=== PATIENT | female | born 1980 | race Caucasian/White ===

== ENCOUNTER 2016-10-20 10:55 | Emergency (ER) | payer MEDICAID ==
[~2016-10-20] VITALS: Wt 55.5 kg
[~2016-10-20 10:55] MED LIST: HYDR-902 PO; ONDA-43 PO; ULT50 PO
[2016-10-20] MEDS ORDERED: SOD CHLORIDE 0.9% 1,000 ML IV STA (11:08)
[2016-10-20] MEDS ORDERED: ONDANSETRON 4 MG INJ IV STA (11:08)
[2016-10-20] MEDS ORDERED: morphine 4 MG/ML VIAL IV STA (11:08)
[2016-10-20] MEDS ORDERED: DICLOFENAC SODIUM 37.5 MG/ML VIAL IV STA (11:13)
[2016-10-20 12:01] LABS: BASOPHILS % 0.1 % (0.0-2.0); HEMATOCRIT 39.5 % (37.0-47.0); HEMOGLOBIN 13.3 g/dl (12.0-16.0); LYMPHOCYTES # 0.6 10^3/ul (0.8-2.9); LYMPHOCYTES % 5.4 % (15.0-51.0); MEAN CORPUSCULAR HEMOGLOBIN 30.4 pg (29.0-33.0); MEAN CORPUSCULAR HGB CONC 33.6 g/dl (32.0-37.0); MEAN CORPUSCULAR VOLUME 90.4 fl (82.0-101.0); MEAN PLATELET VOLUME 8.3 fl (7.4-10.4); MONOCYTE # 0.3 10^3/ul (0.3-0.9); MONOCYTES % 2.4 % (0.0-11.0); NEUTROPHIL # 9.6 10^3/ul (1.6-7.5); NEUTROPHILS % 92.1 % (39.0-77.0); PLATELET COUNT 228 10^3/UL (140-440); RED BLOOD COUNT 4.37 10^6/ul (4.20-5.40); RED CELL DISTRIBUTION WIDTH 14.1 % (11.5-14.5); UNCORRECTED WBC 10.5 10^3/ul (4.8-10.8); WHITE BLOOD COUNT 10.5 10^3/ul (4.8-10.8)
[2016-10-20 12:11] LABS: CONDITION 1; LH ANALYZER COMMENTS 1
[2016-10-20 12:12] LABS: INR 0.93; PROTIME 12.5 Sec (12.2-14.2)
[2016-10-20 12:13] LABS: PARTIAL THROMBOPLASTIN TIME 27.8 Sec (25.0-35.0)
[2016-10-20 12:23] LABS: ALBUMIN 4.8 g/dl (3.3-4.9)
[2016-10-20 12:24] LABS: POTASSIUM 3.9 mmol/L (3.5-5.1)
[2016-10-20 12:26] LABS: ADD UMIC YES; URINE BILIRUBIN (Dip) NEGATIVE (NEGATIVE); URINE BLOOD (Dip) NEGATIVE (NEGATIVE); URINE COLOR LT. YELLOW (YELLOW); URINE GLUCOSE (Dip) NEGATIVE (NEGATIVE); URINE KETONES (Dip) NEGATIVE (NEGATIVE); URINE LEUKOCYTE ESTERASE (Dip) 1+ (NEGATIVE); URINE NITRITE (Dip) NEGATIVE (NEGATIVE); URINE TOTAL PROTEIN (Dip) NEGATIVE (NEGATIVE); URINE UROBILINOGEN (Dip) 0.2 E.U./dL (0.1-1.0)
[2016-10-20 12:26] LABS: ALBUMIN/GLOBULIN RATIO 1.33; BILIRUBIN,INDIRECT 0.2 mg/dl (0-1.1); BILIRUBIN,TOTAL 0.2 mg/dl (0.2-1.3); CREATININE 0.63 mg/dl (0.44-1.00); TOTAL PROTEIN 8.4 g/dl (6.1-8.1)
[2016-10-20 12:27] LABS: CALCIUM 9.9 mg/dl (8.4-10.2)
[2016-10-20] MEDS ORDERED: HYDROmorphONE 1 MG/ML SYG IV STA (12:34)
[2016-10-20 12:47] LABS: BACTERIA,URINE FEW; SQUAMOUS EPITHELIAL CELL,UR FEW; URINE RBCS NONE SEEN /HPF (0)
[2016-10-20] MEDS ORDERED: SOD CHLORIDE 0.9% 1,000 ML IV ONE (13:00)
--- NOTE | 2016-10-20 13:01 | ERD ---
ER Documentation Chief Complaint Date/Time DATE: 10/20/16 TIME: 12:58 Chief Complaint SEVERE ABD PAIN, N/V, HX OF ABD CANCER, SURGERY 2 MONTHS AGO HPI This 36-year-old female presented with lower abdominal pain as well as nausea and vomiting. States that she ate beans last night and thinks that's why the pain started at that time. She had a normal bowel this morning denies diarrhea or constipation. She had extensive abdominal surgery [address] 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 Pain is described as a sharp pain and she feels that her abdomen has swelling down there. He denies any fevers and chills. ROS All systems reviewed and are negative except as per history of present illness. Medications Home Meds Active Scripts Tramadol HCl (Tramadol HCl) 50 Mg Tablet, 50 MG PO Q4 Y for PAIN, #20 TAB Prov:EMILIANO DOWNING 09/25/16 Reported Medications Ondansetron Hcl* (Zofran*) 4 Mg Tab, 4 MG PO Q6H Y for NAUSEA AND OR VOMITING, TAB 09/25/16 Hydrocodone/Acetaminophen ([place] 10-325 Tablet) 1 Each Tablet, 1 EACH PO Q6 Y for PAIN, TAB 09/25/16 Allergies Allergies: Coded Allergies: No Known Allergy (Verified , 10/20/16) PMhx/Soc History of Surgery: Yes (YAZMIN w/ tumor removal 08/2016) Anesthesia Reaction: No Hx Neurological Disorder: No Hx Respiratory Disorders: No Hx Cardiac Disorders: No Hx Psychiatric Problems: No Hx Miscellaneous Medical Probl: Yes (OVARIAN CA WITH METS: stage 4) Hx Alcohol Use: No Hx Substance Use: No Hx Tobacco Use: No Physical Exam Vitals Vital Signs Date Time Temp Pulse Resp B/P Pulse Ox O2 Delivery O2 Flow Rate FiO2 10/20/16 11:00 98.5 67 18 124/89 99 Physical Exam Const: [] No distress Head: Atraumatic Eyes: Normal Conjunctiva ENT: Normal External Ears, Nose and Mouth. Neck: Full range of motion..~ No meningismus. Resp: Clear to auscultation bilaterally Cardio: Regular rate and rhythm, no murmurs Abd: Soft, well-healed midline abdominal scar from epigastric area down to suprapubic area, mild left lower quadrant suprapubic tenderness without guarding or rebound,, non distended. Normal bowel sounds Skin: No petechiae or rashes Back: No midline or flank tenderness Ext: No cyanosis, or edema Neur: Awake and alert oriented 3, no focal deficits Psych: Normal Mood and Affect Result Diagram: 10/20/16 1125 10/20/16 1125 Results 24 hrs Laboratory Tests Test 10/20/16 11:25 10/20/16 12:10 Activated Partial Thromboplast Time 27.8Sec Alanine Aminotransferase (ALT/SGPT) 52IU/L Albumin 4.8g/dl Albumin/Globulin Ratio 1.33 Alkaline Phosphatase 75IU/L Anion Gap 21 Aspartate Amino Transf (AST/SGOT) 39IU/L Basophils # 0.010^3/ul Basophils % 0.1% Blood Urea Nitrogen 13mg/dl Calcium Level 9.9mg/dl Carbon Dioxide Level 25mmol/L Chloride Level 104mmol/L Creatinine 0.63mg/dl Direct Bilirubin 0.00mg/dl Eosinophils # 0.010^3/ul Eosinophils % 0.0% Globulin 3.60g/dl Glucose Level 132mg/dl Hematocrit 39.5% Hemoglobin 13.3g/dl INR International Normalized Ratio 0.93 Indirect Bilirubin 0.2mg/dl Lactic Acid Level 2.6mmol/L Lipase 99U/L Lymphocytes # 0.610^3/ul Lymphocytes % 5.4% Mean Corpuscular Hemoglobin 30.4pg Mean Corpuscular Hemoglobin Concent 33.6g/dl Mean Corpuscular Volume 90.4fl Mean Platelet Volume 8.3fl Monocytes # 0.310^3/ul Monocytes % 2.4% Neutrophils # 9.610^3/ul Neutrophils % 92.1% Nucleated Red Blood Cells # 0.010^3/ul Nucleated Red Blood Cells % 0.0/100WBC Platelet Count 62164^3/UL Potassium Level 3.9mmol/L Prothrombin Time 12.5Sec Prothrombin Time Ratio 1.0 Red Blood Count 4.3710^6/ul Red Cell Distribution Width 14.1% Sodium Level 146mmol/L Total Bilirubin 0.2mg/dl Total Protein 8.4g/dl White Blood Count 10.510^3/ul Urine Bacteria FEW Urine Bilirubin NEGATIVE Urine Clarity CLEAR Urine Color LT. YELLOW Urine Glucose NEGATIVE% Urine Hemoglobin NEGATIVE Urine Ketones NEGATIVE Urine Leukocyte Esterase 1+ Urine Microscopic RBC NONE SEEN/HPF Urine Microscopic WBC 0-2/HPF Urine Nitrite NEGATIVE Urine Specific [place] 1.025 Urine Squamous Epithelial Cells FEW Urine Total Protein NEGATIVE Urine Urobilinogen 0.2 E.U./dL Urine pH 6.5 Current Medications Medications (Trade) Dose Ordered Sig/Sharon Route PRN Reason Start Time Stop Time Status Last Admin Dose Admin Sodium Chloride (NS) 1,000 ml @ 1,000 mls/hr Q1H STAT IV 10/20/16 11:08 10/20/16 12:07 DC 10/20/16 11:27 Morphine Sulfate (morphine) 4 mg ONCE STAT IV 10/20/16 11:08 10/20/16 11:14 DC Ondansetron HCl (Zofran Inj) 4 mg ONCE STAT IV 10/20/16 11:08 10/20/16 11:10 DC 10/20/16 11:27 Diclofenac Sodium (Dyloject) 37.5 mg ONCE STAT IV 10/20/16 11:13 10/20/16 11:14 DC 10/20/16 11:27 Hydromorphone HCl 0.5 mg 0.5 mg ONCE STAT IV 10/20/16 12:34 10/20/16 12:35 DC 10/20/16 12:44 Sodium Chloride (NS) 1,000 ml @ 1,000 mls/hr Q1H ONCE IV 10/20/16 13:00 10/20/16 13:59 SHAWNA RAMIREZ DO Oct 20, 2016 13:01
--- NOTE | 2016-10-20 14:07 | RADRPT ---
PROCEDURE: CT abdomen and pelvis without contrast and with 3-D reconstructions CLINICAL INDICATION: Patient experiencing Abdominal Pain, history of abdominal cancer, surgery 2 m onths ago, ovarian cancer with metastases, total abdominal hysterectomy with tumor removal in 2015 TECHNIQUE: CT scan of the abdomen and pelvis without contrast was performed on a multislice CT [facility]. 3-D sagittal and coronal reformatted images were obtained from the axial source images. DLP 412.79 mGycm CTDIvol 7.71 mGy COMPARISON: CT abdomen/pelvis from 09/22/2016 FINDINGS: The visualized lung bases are unremarkable. The liver is homogenous in attenuation. There are no focal liver lesions. There is no intrahepatic or extrahepatic biliary ductal dilatation. The gallbladder is within normal limits. The spleen, pancreas, and adrenal glands are within normal limits. The kidneys are symmetric and without focal lesions. Punctate bilateral renal calculi are again note d. There is no right hydronephrosis. There is new mild left hydronephrosis. A ureteral calculus i s not definitively identified. Distension of the stomach and multiple small bowel loops seen previously is no longer identified. A nastomotic sutures are again noted in the sigmoid colon. There is no evidence of a bowel obstructio n or stricture at the anastomotic site. No definite peritoneal carcinomatosis is identified. The aorta is within normal limits. There are no enlarged mesenteric, periaortic, or retroperitoneal lymph nodes. The bladder is within normal limits. The uterus is absent. There is no free air. There small pelv ic free fluid. There are no enlarged intrapelvic or inguinal lymph nodes. Osseous and soft tissue structures are unremarkable. IMPRESSION: Punctate renal calculi are again identified bilaterally, however there is new mild left hydronephros is. A definite ureteral calculus is not identified. Clinical correlation is recommended. Anastomotic sutures are again noted in the sigmoid colon without evidence of a bowel obstruction or stricture at the anastomotic site. Small pelvic free fluid is noted. The uterus is absent consistent with the reported history. RPTAT: EE Physician Vladislav Date Time Electronically viewed and signed by Physician Vladislav on 10/20/2016 14:06 RA/
[2016-10-20] MEDS ORDERED: NAPR-688 PO (15:14)
[2016-10-20] MEDS ORDERED: POLY17PO6 PO (15:14)
[2016-10-20 15:30] VITALS: BP 111/77; PULSE 70; RESP 16; TEMP 98.1
== END 2016-10-20 15:30 | disposition home or self-care (01) ==
LOC: E/R 10:55
DX: R10.31 Right lower quadrant pain (principal); Z85.43 Personal history of malignant neoplasm of ovary
CPT/HCPCS: 36415; 74176; 80053; 81001; 83605; 83690; 85025; 85610; 85730; 96374; 96375; J1170; J2405; J7030; Z7502; Z7610; 81003

== ENCOUNTER 2017-01-06 09:12 | Emergency (ER) | payer OTHER ==
[~2017-01-06] VITALS: Ht 160 cm; Wt 54.0 kg
[~2017-01-06 09:12] MED LIST changes: +NAPR-688 PO; +POLY17PO6 PO; +TRAM50TA2 PO; -ULT50 PO
[2017-01-06 09:19] VITALS: Ht 160 cm; Wt 54.0 kg
[2017-01-06] MEDS ORDERED: BARIUM SULF 2% 450 ML BTL (BERRY SMOOTHIE) PO STA (09:43)
[2017-01-06] MEDS ORDERED: morphine 4 MG/ML VIAL IV STA (09:43)
[2017-01-06] MEDS ORDERED: SOD CHLORIDE 0.9% 1,000 ML IV STA (09:43)
[2017-01-06] MEDS ORDERED: ONDANSETRON 4 MG INJ IV STA (09:43)
--- NOTE | 2017-01-06 09:50 | ERA ---
ER Documentation Chief Complaint Date/Time DATE: 01/06/17 TIME: 09:47 Chief Complaint GEN ABDL PAIN X 5 DAYS - HISTORY OF OVARIAN CANCER, HAD SURGERY 07/2016 HPI Patient is a 36-year-old female who had a complete hysterectomy done in July for ovarian cancer. This was followed by chemotherapy in August. She states she stopped the chemotherapy early because her numbers went down. She failed to follow up with her oncologist however she has been following up with her primary care physician who has been checking her cancer numbers. She states that his numbers unfortunately have been increasing recently. She is noted lower abdominal pain with a fullness. Is also had dyspareunia. She is concerned that the cancer has reoccurred and presents here for further evaluation. She denies any abdominal trauma, fever, vomiting, nausea, diarrhea , dysuria, hematuria, flank pain. She states movement increases the pain, nothing helps the pain. She has had weight loss but she states she has had weight loss because she is on a special diet for the ovarian cancer. The remainder of the systems are negative ROS All systems reviewed and are negative except as per history of present illness. Medications Home Meds Discontinued Reported Medications Ondansetron Hcl* (Zofran*) 4 Mg Tab, 4 MG PO Q6H Y for NAUSEA AND OR VOMITING, TAB 09/25/16 Hydrocodone/Acetaminophen ([place] 10-325 Tablet) 1 Each Tablet, 1 EACH PO Q6 Y for PAIN, TAB 09/25/16 Discontinued Scripts Polyethylene Glycol* (Miralax*) 17 Gm Powd.pack, 17 GM PO DAILY, #7 PACKET Prov:SHAWNA RAMIREZ DO 10/20/16 Naproxen* (Naproxen*) 500 Mg Tablet, 500 MG PO BID Y for PAIN, #20 TAB Prov:SHAWNA RAMIREZ DO 10/20/16 Tramadol HCl (Tramadol HCl) 50 Mg Tablet, 50 MG PO Q4 Y for PAIN, #20 TAB Prov:EMILIANO DOWNING 09/25/16 Allergies Allergies: Coded Allergies: No Known Allergy (Verified , 01/06/17) PMhx/Soc History of Surgery: Yes (TOTAL ABD HYSTERECTOMY W/ TUMOR REMOVAL AUG 2016) Anesthesia Reaction: No Hx Neurological Disorder: No Hx Respiratory Disorders: No Hx Cardiac Disorders: No Hx Psychiatric Problems: No Hx Miscellaneous Medical Probl: Yes (OVARIAN CA WITH METS: STAGE 4) Hx Alcohol Use: No Hx Substance Use: No Hx Tobacco Use: No Physical Exam Vitals Vital Signs Date Time Temp Pulse Resp B/P Pulse Ox O2 Delivery O2 Flow Rate FiO2 01/06/17 12:18 54 12 113/80 100 Room Air 01/06/17 11:14 98.1 66 13 107/72 96 Room Air 01/06/17 09:19 98.5 73 19 116/73 99 Physical Exam Const: [] Well-developed well-nourished female lying on the bed no acute distress Head: Atraumatic normocephalic Eyes: Normal Conjunctiva ENT: Normal External Ears, Nose and Mouth. Neck: Full range of motion..~ No meningismus. Resp: Clear to auscultation bilaterally Cardio: Regular rate and rhythm, no murmurs Abd: Soft, mild tenderness to palpation throughout the lower abdomen, no masses, rebound, or guarding, audible bowel sounds auscultated Skin: No petechiae or rashes Back: No midline or flank tenderness Ext: No cyanosis, or edema Neur: Awake and alert, oriented 3, GCS of 15, nonfocal Psych: Normal Mood and Affect Result Diagram: 01/06/17 1006 01/06/17 1006 Results 24 hrs Laboratory Tests Test 01/06/17 10:06 Alanine Aminotransferase (ALT/SGPT) 60IU/L Albumin 4.2g/dl Albumin/Globulin Ratio 1.35 Alkaline Phosphatase 80IU/L Anion Gap 16 Aspartate Amino Transf (AST/SGOT) 52IU/L Basophils # 0.010^3/ul Basophils % 0.4% Blood Urea Nitrogen 14mg/dl Calcium Level 9.4mg/dl Carbon Dioxide Level 31mmol/L Chloride Level 101mmol/L Creatinine 0.64mg/dl Direct Bilirubin 0.00mg/dl Eosinophils # 0.110^3/ul Eosinophils % 2.2% Globulin 3.10g/dl Glucose Level 87mg/dl Hematocrit 34.8% Hemoglobin 12.1g/dl Indirect Bilirubin 0.3mg/dl Lipase 111U/L Lymphocytes # 1.110^3/ul Lymphocytes % 24.4% Mean Corpuscular Hemoglobin 31.5pg Mean Corpuscular Hemoglobin Concent 34.8g/dl Mean Corpuscular Volume 90.6fl Mean Platelet Volume 10.5fl Monocytes # 0.310^3/ul Monocytes % 6.4% Neutrophils # 3.010^3/ul Neutrophils % 66.6% Nucleated Red Blood Cells # 0.010^3/ul Nucleated Red Blood Cells % 0.0/100WBC Platelet Count 59322^3/UL Potassium Level 4.1mmol/L Red Blood Count 3.8410^6/ul Red Cell Distribution Width 11.1% Sodium Level 144mmol/L Total Bilirubin 0.3mg/dl Total Protein 7.3g/dl Urine Bilirubin NEGATIVE Urine Clarity CLEAR Urine Color LT. YELLOW Urine Glucose NEGATIVE% Urine Hemoglobin NEGATIVE Urine Ketones NEGATIVE Urine Leukocyte Esterase NEGATIVE Urine Nitrite NEGATIVE Urine Specific [place] 1.010 Urine Total Protein NEGATIVE Urine Urobilinogen 0.2 E.U./dL Urine pH 7.5 White Blood Count 4.510^3/ul Current Medications Medications (Trade) Dose Ordered Sig/Sharon Route PRN Reason Start Time Stop Time Status Last Admin Dose Admin Sodium Chloride (NS) 1,000 ml @ 1,000 mls/hr Q1H STAT IV 01/06/17 09:43 01/06/17 10:42 DC 01/06/17 10:18 Morphine Sulfate (morphine) 4 mg ONCE STAT IV 01/06/17 09:43 01/06/17 10:16 DC Ondansetron HCl (Zofran Inj) 4 mg ONCE STAT IV 01/06/17 09:43 01/06/17 09:47 DC 01/06/17 10:18 Barium Sulfate (Readi-Cat 2 ( Barboza Smoothie )) 450 ml ONCE STAT PO 01/06/17 09:43 01/06/17 09:47 DC 01/06/17 10:59 Ketorolac Tromethamine (Toradol) 30 mg ONCE STAT IV 01/06/17 10:14 01/06/17 10:16 DC 01/06/17 10:18 IV Flush 10 ml 10 ml STK-MED ONCE .ROUTE 01/06/17 11:21 01/06/17 11:22 DC 01/06/17 11:39 Sodium Chloride (NS) 100 ml @ ud STK-MED ONCE .ROUTE 01/06/17 11:21 01/06/17 11:22 DC 01/06/17 11:39 Iohexol (Omnipaque 300mg/ ml) 150 ml STK-MED ONCE .ROUTE 01/06/17 11:21 01/06/17 11:22 DC 01/06/17 11:39 Procedures/MDM Differential includes but is not limited to recurrent ovarian cancer, nonspecific abdominal pain, urinary tract infection, gastritis, diverticulitis, colitis CT abdomen and pelvis is most consistent with recurrent cancer with malignant implants in the liver and along the omentum 1240 this has been discussed with the patient. She understands she needs to follow-up. I spoke with Dr. Naranjo who is her oncologist. Dr. Naranjo is agreed to see her at 3 PM. Departure Diagnosis: Primary Impression: Ovarian cancer Qualified Code: C56.9 - Ovarian cancer, unspecified laterality Condition: Fair Patient Instructions: What Is Ovarian Cancer? Referrals: TONE ENRIQUEZ MD Additional Instructions: You have an appointment with Dr. Enriquez on at 3 PM. Please keep this appointment. This is extremely important for your health. Return to the emergency department if you develop any new or worsening symptoms for INO MARCUS Jan 06, 2017 09:50
[2017-01-06] MEDS ORDERED: KETOROLAC 30 MG INJ IV STA (10:14)
[2017-01-06 10:23] LABS: ADD SCAN DIFF NO
[2017-01-06 10:27] LABS: ADD UMIC NO; URINE BILIRUBIN (Dip) NEGATIVE (NEGATIVE); URINE BLOOD (Dip) NEGATIVE (NEGATIVE); URINE COLOR LT. YELLOW (YELLOW); URINE GLUCOSE (Dip) NEGATIVE (NEGATIVE); URINE KETONES (Dip) NEGATIVE (NEGATIVE); URINE LEUKOCYTE ESTERASE (Dip) NEGATIVE (NEGATIVE); URINE NITRITE (Dip) NEGATIVE (NEGATIVE); URINE TOTAL PROTEIN (Dip) NEGATIVE (NEGATIVE); URINE UROBILINOGEN (Dip) 0.2 E.U./dL (0.1-1.0)
[2017-01-06 10:28] LABS: BASOPHILS % 0.4 % (0.0-2.0); EOSINOPHILS # 0.1 10^3/ul (0.0-0.5); EOSINOPHILS % 2.2 % (0.0-7.0); HEMATOCRIT 34.8 % (37.0-47.0); HEMOGLOBIN 12.1 g/dl (12.0-16.0); LYMPHOCYTES # 1.1 10^3/ul (0.8-2.9); LYMPHOCYTES % 24.4 % (15.0-51.0); MEAN CORPUSCULAR HEMOGLOBIN 31.5 pg (29.0-33.0); MEAN CORPUSCULAR HGB CONC 34.8 g/dl (32.0-37.0); MEAN CORPUSCULAR VOLUME 90.6 fl (82.0-101.0); MEAN PLATELET VOLUME 10.5 fl (7.4-10.4); MONOCYTE # 0.3 10^3/ul (0.3-0.9); MONOCYTES % 6.4 % (0.0-11.0); NEUTROPHILS % 66.6 % (39.0-77.0); PLATELET COUNT 197 10^3/UL (140-415); RED BLOOD COUNT 3.84 10^6/ul (4.20-5.40); RED CELL DISTRIBUTION WIDTH 11.1 % (11.5-14.5); WHITE BLOOD COUNT 4.5 10^3/ul (4.8-10.8)
[2017-01-06 11:14] VITALS: TEMP 98.1
[2017-01-06] MEDS ORDERED: IOHEXOL 300MG/ML 150 ML BTL ONE (11:21)
[2017-01-06] MEDS ORDERED: SOD CHLORIDE 0.9% 100 ML ONE (11:21)
[2017-01-06 11:26] LABS: ALBUMIN 4.2 g/dl (3.3-4.9)
[2017-01-06 11:27] LABS: POTASSIUM 4.1 mmol/L (3.5-5.1)
[2017-01-06 11:29] LABS: ALBUMIN/GLOBULIN RATIO 1.35; BILIRUBIN,INDIRECT 0.3 mg/dl (0-1.1); BILIRUBIN,TOTAL 0.3 mg/dl (0.2-1.3); CALCIUM 9.4 mg/dl (8.4-10.2); CREATININE 0.64 mg/dl (0.44-1.00); TOTAL PROTEIN 7.3 g/dl (6.1-8.1)
--- NOTE | 2017-01-06 12:15 | RADRPT ---
PROCEDURE: CT Abdomen and Pelvis with contrast. CLINICAL INDICATION: Status post hysterectomy for malignancy, now with lower pelvic pain. Concern for recurrent/residual disease. TECHNIQUE: CT scan of the abdomen and pelvis with contrast was performed on a multi-detector high- resolution CT scanner. The patient was scanned following the uncomplicated intravenous administrati on of 100 cc of Omnipaque 300. Coronal and sagittal reformatted images were obtained from the axial source images. One or more of the following dose reduction techniques were used: Automated exposur e control, adjustment of the mA and/or kV according to patient size, use of iterative reconstructio n technique. Images were reviewed on a high-resolution PACS workstation. The total exam CTDI equals 7.64 mGy and the total exam DLP equals 411.57 mGy-cm. COMPARISON: CT from 10/20/2016. FINDINGS: The visualized lung bases are unremarkable. The liver is homogenous in attenuation. There are no focal liver lesions. There is no intrahepatic or extrahepatic biliary ductal dilatation. New subtle nodularity is seen along the anterior and ser osal surface of the left hepatic lobe (images 31-39 of series 3). The gallbladder is within normal limits. The spleen, pancreas, and adrenal glands are within normal limits. The kidneys are symmetric and without focal lesions. Punctate bilateral renal calculi are again note d. There is no hydronephrosis. Distension of the stomach and multiple small bowel loops seen previously is no longer identified. An astomotic sutures are again noted in the sigmoid colon. There is no evidence of a bowel obstruction or stricture at the anastomotic site. New soft tissue nodularity is seen in the left upper quadrant adjacent to the distal transverse colo n and splenic flexure of the colon, concerning for peritoneal carcinomatosis (images 29-39 of series 601 and image 23 of series 3). The largest region measures 1.6 x 3.0 cm. The bladder is within normal limits. The uterus is absent. There is no free air. There small pelvic free fluid, increased since the prior CT. There is also new pelvic free fluid in the anterior left p alf. A small nonenhancing 1.7 x 0.9 cm left iliac chain lymph node is not significantly change si nce the prior exam. Otherwise, there are no enlarged intrapelvic or inguinal lymph nodes. The aorta is within normal limits. Osseous and soft tissue structures are unremarkable. IMPRESSION: 1. New subtle nodularity along the anterior surface of the left hepatic lobe, concerning for possib le serosal malignant implants (pictured below). New soft tissue nodularity is also seen in the left upper quadrant, adjacent to the distal transverse colon and splenic flexure, concerning for possibl e peritoneal carcinomatosis versus omental implants (also pictured below). 2. Mildly prominent 1.7 x 0.9 cm left iliac chain lymph node, not significantly changed. 3. Minimally increased small nonspecific pelvic fluid in the presacral region may be physiologic, m alignant or infectious in etiology. 4. Punctate renal calculi are again identified bilaterally. 5. Anastomotic sutures are again noted in the sigmoid colon without evidence of a bowel obstruction or stricture at the anastomotic site. 6. The uterus is absent consistent with the reported history. RPTAT: EE .Brodie Capps MD, Date Time Electronically viewed and signed by .Brodie Capps MD, on 01/06/2017 12:15 .A/
[2017-01-06 12:18] VITALS: BP 113/80; PULSE 54; RESP 12
[2017-01-06] MEDS ORDERED: HYDR-906 PO (12:48)
[2017-01-06] MEDS ORDERED: ONDA4TAB8 PO (12:48)
== END 2017-01-06 13:19 | disposition home or self-care (01) ==
LOC: E/R 09:12
DX: C56.9 Malignant neoplasm of unspecified ovary (principal); R40.2252 Coma scale, best verbal response, oriented, at arrival to emergency department; R40.2142 Coma scale, eyes open, spontaneous, at arrival to emergency department; R40.2362 Coma scale, best motor response, obeys commands, at arrival to emergency department
CPT/HCPCS: 36415; 74177; 80053; 81003; 83690; 85025; 96374; 96375; J1885; J2405; J7030; Q9967; Z7502; Z7610

== ENCOUNTER 2017-01-11 18:47 | Inpatient (IN) | payer OTHER ==
[~2017-01-11] VITALS: Ht 162.6 cm; Wt 53.2 kg
[~2017-01-11 18:47] MED LIST changes: -HYDR-902 PO; +HYDR-906 PO; -NAPR-688 PO; -ONDA-43 PO; +ONDA4TAB8 PO; -POLY17PO6 PO; -TRAM50TA2 PO
[2017-01-11] MEDS ORDERED: HYDROmorphONE 1 MG/ML SYG IV STA (19:32)
[2017-01-11] MEDS ORDERED: SOD CHLORIDE 0.9% 1,000 ML IV STA (19:32)
[2017-01-11] MEDS ORDERED: ONDANSETRON 4 MG INJ IV STA (19:32)
[2017-01-11 20:02] LABS: ADD SCAN DIFF NO
[2017-01-11 20:04] LABS: BASOPHILS % 0.4 % (0.0-2.0); EOSINOPHILS # 0.2 10^3/ul (0.0-0.5); EOSINOPHILS % 3.2 % (0.0-7.0); HEMATOCRIT 35.5 % (37.0-47.0); LYMPHOCYTES # 1.8 10^3/ul (0.8-2.9); LYMPHOCYTES % 36.3 % (15.0-51.0); MEAN CORPUSCULAR HEMOGLOBIN 30.8 pg (29.0-33.0); MEAN CORPUSCULAR HGB CONC 33.8 g/dl (32.0-37.0); MEAN PLATELET VOLUME 10.3 fl (7.4-10.4); MONOCYTE # 0.4 10^3/ul (0.3-0.9); MONOCYTES % 7.5 % (0.0-11.0); NEUTROPHIL # 2.6 10^3/ul (1.6-7.5); NEUTROPHILS % 52.4 % (39.0-77.0); PLATELET COUNT 220 10^3/UL (140-415); RED CELL DISTRIBUTION WIDTH 11.3 % (11.5-14.5)
[2017-01-11 20:08] LABS: ADD UMIC YES; URINE BILIRUBIN (Dip) NEGATIVE (NEGATIVE); URINE BLOOD (Dip) TRACE (NEGATIVE); URINE COLOR LT. YELLOW (YELLOW); URINE GLUCOSE (Dip) NEGATIVE (NEGATIVE); URINE KETONES (Dip) TRACE (NEGATIVE); URINE LEUKOCYTE ESTERASE (Dip) TRACE (NEGATIVE); URINE NITRITE (Dip) NEGATIVE (NEGATIVE); URINE TOTAL PROTEIN (Dip) NEGATIVE (NEGATIVE); URINE UROBILINOGEN (Dip) 0.2 E.U./dL (0.1-1.0)
[2017-01-11 20:14] LABS: ALBUMIN 4.5 g/dl (3.3-4.9); POTASSIUM 3.7 mmol/L (3.5-5.1)
[2017-01-11 20:15] LABS: SQUAMOUS EPITHELIAL CELL,UR RARE; URINE RBCS 0-2 /HPF (0)
[2017-01-11 20:16] LABS: BILIRUBIN,INDIRECT 0.2 mg/dl (0-1.1); BILIRUBIN,TOTAL 0.2 mg/dl (0.2-1.3); CREATININE 0.67 mg/dl (0.44-1.00)
[2017-01-11 20:17] LABS: ALBUMIN/GLOBULIN RATIO 1.36; CALCIUM 9.7 mg/dl (8.4-10.2); TOTAL PROTEIN 7.8 g/dl (6.1-8.1)
[2017-01-11] MEDS ORDERED: KETOROLAC 15 MG INJ IV STA ×2 (20:21→21:18)
--- NOTE | 2017-01-11 21:21 | ERA ---
ER Documentation Chief Complaint Date/Time DATE: 01/11/17 TIME: 21:20 Chief Complaint abdominal pain x 2 weeks, hx of ovarian ca HPI This is a 36-year-old female with a history of ovarian carcinoma and hysterectomy presenting to the emergency department complaining of generalized abdominal pain for the past 2 weeks with nausea and vomiting. Patient states that she is unable to keep any food down because of the pain and vomiting. Patient states that she has not tried any medications for this. Patient states that she was seen here 4 days ago received a CT scan of her abdomen and blood work. Patient states that her primary care physician stated that her cancer is back and spreading however she was unable to follow with up with her oncologist Dr.Vera Naranjo ROS All systems reviewed and are negative except as per history of present illness. Medications Home Meds Active Scripts Ondansetron Hcl* (Zofran*) 4 Mg Tablet, 4 MG PO Q8H Y for NAUSEA AND/OR VOMITING , #30 TAB 0 Refills Prov:INO MARCUS 01/06/17 Hydrocodone/Acetaminophen ([place] 5-325 Tablet) 1 Each Tablet, 1 TAB PO Q6H Y for PAIN, #20 TAB 0 Refills Prov:INO MARCUS 01/06/17 Discontinued Reported Medications Ondansetron Hcl* (Zofran*) 4 Mg Tab, 4 MG PO Q6H Y for NAUSEA AND OR VOMITING, TAB 09/25/16 Hydrocodone/Acetaminophen ([place] 10-325 Tablet) 1 Each Tablet, 1 EACH PO Q6 Y for PAIN, TAB 09/25/16 Discontinued Scripts Polyethylene Glycol* (Miralax*) 17 Gm Powd.pack, 17 GM PO DAILY, #7 PACKET Prov:SHAWNA RAMIREZ DO 10/20/16 Naproxen* (Naproxen*) 500 Mg Tablet, 500 MG PO BID Y for PAIN, #20 TAB Prov:SHAWNA RAMIREZ DO 10/20/16 Tramadol HCl (Tramadol HCl) 50 Mg Tablet, 50 MG PO Q4 Y for PAIN, #20 TAB Prov:EMILIANO DOWNING 09/25/16 Allergies Allergies: Coded Allergies: No Known Allergy (Verified , 01/11/17) PMhx/Soc History of Surgery: Yes (Ovarian CA p chemo, "ovaries removed") Anesthesia Reaction: Yes Hx Neurological Disorder: No Hx Respiratory Disorders: No Hx Cardiac Disorders: No Hx Psychiatric Problems: No Hx Miscellaneous Medical Probl: Yes (OVARIAN CA WITH METS: STAGE 4) Hx Alcohol Use: No Hx Substance Use: No Hx Tobacco Use: No Physical Exam Vitals Vital Signs Date Time Temp Pulse Resp B/P Pulse Ox O2 Delivery O2 Flow Rate FiO2 01/11/17 18:51 98.9 84 20 159/98 99 Physical Exam GENERAL: well-developed/well-nourished, in no apparent distress, non-toxic appearing HENT: NC/AT, moist mucous membranes EYES: Conjunctiva normal NECK: Supple, no lymphadenopathy PULM: CTA bilaterally, no rales, rhonchi, or wheezing heard CV: Normal S1S2, RRR, good capillary refill GI: tender to palpation in all quadrants +guarding Normal bowel sounds, no masses or organomegaly felt on exam No gross peritonitis, no bruits Negative Rovsing, negative Monge, negative McBurney's point, Negative CVAT BACK: No masses EXT: No clubbing, cyanosis, or edema NEURO: Alert and Orientated SKIN: Intact, normal turgor PSYCH: tearful Result Diagram: 01/11/17 1950 01/11/171949 Results 24 hrs Laboratory Tests Test 01/11/17 19:50 White Blood Count 5.010^3/ul Red Blood Count 3.9010^6/ul Hemoglobin 12.0g/dl Hematocrit 35.5% Mean Corpuscular Volume 91.0fl Mean Corpuscular Hemoglobin 30.8pg Mean Corpuscular Hemoglobin Concent 33.8g/dl Red Cell Distribution Width 11.3% Platelet Count 99895^3/UL Mean Platelet Volume 10.3fl Neutrophils % 52.4% Lymphocytes % 36.3% Monocytes % 7.5% Eosinophils % 3.2% Basophils % 0.4% Nucleated Red Blood Cells % 0.0/100WBC Neutrophils # 2.610^3/ul Lymphocytes # 1.810^3/ul Monocytes # 0.410^3/ul Eosinophils # 0.210^3/ul Basophils # 0.010^3/ul Nucleated Red Blood Cells # 0.010^3/ul Urine Color LT. YELLOW Urine Clarity CLEAR Urine pH 7.0 Urine Specific [place] 1.010 Urine Ketones TRACE Urine Nitrite NEGATIVE Urine Bilirubin NEGATIVE Urine Urobilinogen 0.2 E.U./dL Urine Leukocyte Esterase TRACE Urine Microscopic RBC 0-2/HPF Urine Microscopic WBC 0-2/HPF Urine Squamous Epithelial Cells RARE Urine Hemoglobin TRACE Urine Glucose NEGATIVE% Urine Total Protein NEGATIVE Sodium Level 143mmol/L Potassium Level 3.7mmol/L Chloride Level 102mmol/L Carbon Dioxide Level 29mmol/L Anion Gap 16 Blood Urea Nitrogen 9mg/dl Creatinine 0.67mg/dl Glucose Level 89mg/dl Calcium Level 9.7mg/dl Total Bilirubin 0.2mg/dl Direct Bilirubin 0.00mg/dl Indirect Bilirubin 0.2mg/dl Aspartate Amino Transf (AST/SGOT) 39IU/L Alanine Aminotransferase (ALT/SGPT) 50IU/L Alkaline Phosphatase 79IU/L Total Protein 7.8g/dl Albumin 4.5g/dl Globulin 3.30g/dl Albumin/Globulin Ratio 1.36 Lipase 99U/L Current Medications Medications (Trade) Dose Ordered Sig/Sharon Route PRN Reason Start Time Stop Time Status Last Admin Dose Admin Sodium Chloride (NS) 1,000 ml @ 1,000 mls/hr Q1H STAT IV 01/11/17 19:32 01/11/17 20:31 DC 01/11/17 19:56 Hydromorphone HCl (Dilaudid) 1 mg ONCE STAT IV 01/11/17 19:32 01/11/17 19:33 DC 01/11/17 19:56 Ondansetron HCl (Zofran Inj) 4 mg ONCE STAT IV 01/11/17 19:32 01/11/17 19:33 DC 01/11/17 19:56 Ketorolac Tromethamine (Toradol) 15 mg ONCE STAT IV 01/11/17 20:21 01/11/17 20:22 DC Ketorolac Tromethamine (Toradol) 15 mg ONCE STAT IV 01/11/17 21:18 01/11/17 21:19 DC Diphenhydramine HCl (Benadryl) 25 mg ONCE ONCE IV 01/11/17 22:00 01/11/17 22:01 01/11/17 21:36 Procedures/MDM This is a 36-year-old female with a history of ovarian carcinoma and hysterectomy presents to the ER for the second time this week for abdominal pain , nausea and vomiting. My differentials includes metastasis from ovarian cancer , gastritis, colitis vs other non-specific pain. Lab work was drawn. CBC did not show any evidence of leukocytosis or anemia. CMP did not show any evidence of renal, liver, or electrolyte abnormalities. Lipase was normal. UA did not show any evidence of hemoglobin or urinary tract infection. I have reviewed patient's past chart and the notes from January 11. In the ED patient was given Dilaudid and Zofran, she patient developed a mild rash therefore Benadryl was also provided. Patient still continues to have pain. I have tried to call her oncologist Dr.Vera Naranjo, however she did not car pick up driver twice. I discussed this case with my supervising physician and we have decided that patient will get admitted for intractable pain. Patient stable for transfer January 11, 2017 CT abd and pelvis without contrast: 1. New subtle nodularity along the anterior surface of the left hepatic lobe, concerning for possible serosal malignant implants (pictured below). New soft tissue nodularity is also seen in the left upper quadrant, adjacent to the distal transverse colon and splenic flexure, concerning for possible peritoneal carcinomatosis versus omental implants (also pictured below). 2. Mildly prominent 1.7 x 0.9 cm left iliac chain lymph node, not significantly changed. 3. Minimally increased small nonspecific pelvic fluid in the presacral region may be physiologic, malignant or infectious in etiology. 4. Punctate renal calculi are again identified bilaterally. 5. Anastomotic sutures are again noted in the sigmoid colon without evidence of a bowel obstruction or stricture at the anastomotic site. 6. The uterus is absent consistent with the reported history. Differential includes but is not limited to recurrent ovarian cancer, nonspecific abdominal pain, urinary tract infection, gastritis, diverticulitis, colitis CT abdomen and pelvis is most consistent with recurrent cancer with malignant implants in the liver and along the omentum 1240 this has been discussed with the patient. She understands she needs to follow-up. I spoke with Dr. Naranjo who is her oncologist. Dr. Naranjo is agreed to see her at 3 PM. Departure Diagnosis: Primary Impression: Ovarian cancer Condition: DANIELLA Barrett PA-C Jan 11, 2017 21:21
--- NOTE | 2017-01-11 21:55 | EN ---
Date/Time of Note Date/Time of Note DATE: 01/11/17 TIME: 21:53 ER Progress Note I have seen and evaluated the patient along with the PA and/or [employer]NA[employer] provider. I agree with the evaluation and plan of care. Please see their documentation for full ER course and evaluation. In short: The patient has a recent CT scan showing possible recurrence of ovarian CA with metastatic disease process. She has a repeat visits to the emergency room for abdominal pain. On exam: Mild diffuse tenderness of the abdomen, no peritonitis Assessment and plan: The patient has persistence of abdominal pain despite multiple doses of pain medication. We discussed inpatient versus outpatient management. Patient prefers inpatient management. We attempted to get a hold of Dr. Naranjo without success. The patient will be admitted for further pain control. Accepting care team and consultations: I discussed the current laboratory data, diagnostic imaging and emergency care provided. Admitting team: Dr. Davila Admitting team indication: Insurance directed, ROSEY Uribe MD Jan 11, 2017 21:55
[2017-01-11] MEDS ORDERED: DIPHENHYDRAMINE 50 MG INJ IV ONE (22:00)
[2017-01-11] MEDS ORDERED: HYDROmorphONE 1 MG/ML SYG IV PRN (22:30)
[2017-01-11] MEDS ORDERED: ZOLPIDEM 5 MG TAB PO PRN (22:30)
[2017-01-11] MEDS ORDERED: NACL 0.9% 3 ML SYG IV SCH (22:30)
[2017-01-11] MEDS ORDERED: DOCUSATE SODIUM 100 MG CAP PO PRN (22:30)
[2017-01-11] MEDS ORDERED: ONDANSETRON 4 MG INJ IV PRN (22:30)
--- NOTE | 2017-01-11 22:36 | CONS ---
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 PATH- Serous high grade carcinoma. HISTOLOGIC GRADE: G3. EXTENT OF INVOLVEMENT OF OTHER TISSUES/ORGANS: Right ovary: Involved. Left ovary: Involved. Right fallopian tube: Involved. Left fallopian tube: Involved. Omentum: Involved. Uterus: Involved, serosa. Peritoneum: Involved. Other organs: Appendix and sigmoid colon are involved. PATHOLOGIC STAGING (pTNM): pT3c pN1a. FIGO STAGE: IIIC. OUTPT CHEMO- ONLY 1 CYCLE WAS GIVEN ON AUG 27, 2016 WITH CARBO/TAXOL THEN PT CHANGE HER PLACE OF LIVING, HER LOST A JOB, SHE MOVED TO [place], HAD A LOT OF SOCIAL PROBLEMS , NEVER ESTABLISHED F-UP WITH ONCOLOGIST AT [place] , HER INSURANCE HAS BEEN CHANGED NOW -WITH DIS PROGRESSION, SEEKING CONTINUATION OF TREATMENT. NEED TO START CHEMO KATIA D/W PT IN DETAILS SHE AGREE TO START CHEMO DIS PROGRESSION WITH New subtle nodularity along the anterior surface of the left hepatic lobe, concerning for possible serosal malignant implants New soft tissue nodularity is also seen in the left upper quadrant, adjacent to the distal transverse colon and splenic flexure, concerning for possible peritoneal carcinomatosis versus omental implants Minimally increased small nonspecific pelvic fluid in the presacral region may be physiologic, most likely malignant 2. Gastrointestinal prophylaxis, PPI. 3. Deep venous thrombosis prophylaxis with Lovenox. 4. JEHOVAH WITNESS IV IRON PROCRIT POST CHEMO Problems: Consultation Date/Type/Reason Admit Date/Time Date of Consultation: Jan 11, 2017 Type of Consultation: HEMEON Reason for Consultation PAIN METASTATIC ovarian CANCER Referring Provider: ROSEY GARCIA MD Hx of Present Illness This is a 36-year-old female with history of metastatic ovarian cancer status post debulking for peritoneal carcinomatosis was here back in July of 2016 and had surgery [address] Dr. Noonan. The patient reports that she did have 1 session of chemotherapy with carbo/ Taxol as an outpatient in August then after that she was lost to followup after she moved to [place]. She is now back into the area and she presented to the emergency department 1 week ago with complaint of abdominal pain. She had a CAT scan of the abdomen and pelvis at that time that showed new carcinomatosis and mets in the left upper quadrant which is corresponding to the area of pain at this point. The patient was supposed to follow up with me as an outpatient. Apparently she has been having issues resuming her chemotherapy. She re-presented to the emergency department yesterday evening with complaint of abdominal pain. She was admitted for observation and monitoring she has new lesions seen on CAT scan consistent with ongoing metastatic ovarian cancer. The patient denies any vomiting. She has been having ongoing chronic nausea. She denies any fevers, chills, chest pain, shortness of breath, or cough. She denies any diarrhea, constipation, dysuria or urinary frequency. She is tolerating p.o. today ALLERGIES: NO KNOWN ALLERGIES. PAST MEDICAL HISTORY: 1. Metastatic papillary serous carcinoma, status post debulking surgery back in July of 2016 with removal of the uterus, ovaries and she also had removal of a right upper quadrant mass according to her and further debulking. This was done by Dr. Noonan 2. Chronic nausea. PAST SURGICAL HISTORY: 1. Status post debulking surgery for metastatic papillary serous carcinoma with removal of uterus, ovaries and a couple of metastatic masses. This was in July of 2016. 2. Status post [employer] surgery apparently at least 6 years ago for a misdiagnosed ectopic . SOCIAL HISTORY: The patient does not smoke, drink alcohol or use any drugs. She moved back to the [place] recently. OUTPATIENT MEDICATIONS: None. REVIEW OF SYSTEMS: As per HPI. Exam/Review of Systems Vital Signs Vitals Vital Signs Date Time Temp Pulse Resp B/P Pulse Ox O2 Delivery O2 Flow Rate FiO2 01/11/17 22:30 67 18 117/83 100 Room Air 01/11/17 18:51 98.9 Exam GENERAL: well-developed/well-nourished, in no apparent distress, non-toxic appearing HENT: NC/AT, moist mucous membranes EYES: Conjunctiva normal NECK: Supple, no lymphadenopathy PULM: CTA bilaterally, no rales, rhonchi, or wheezing heard CV: Normal S1S2, RRR, good capillary refill GI: tender to palpation in all quadrants +guarding Normal bowel sounds, no masses or organomegaly felt on exam No gross peritonitis, no bruits Negative Rovsing, negative Monge, negative McBurney's point, Negative CVAT BACK: No masses EXT: No clubbing, cyanosis, or edema NEURO: Alert and Orientated SKIN: Intact, normal turgor PSYCH: tearful Results Result Diagram: 01/11/17 1950 01/11/17 1950 Results 24 hrs Laboratory Tests Test 01/11/17 19:50 White Blood Count 5.0 Red Blood Count 3.90 L Hemoglobin 12.0 Hematocrit 35.5 L Mean Corpuscular Volume 91.0 Mean Corpuscular Hemoglobin 30.8 Mean Corpuscular Hemoglobin Concent 33.8 Red Cell Distribution Width 11.3 L Platelet Count 220 Mean Platelet Volume 10.3 Neutrophils % 52.4 Lymphocytes % 36.3 Monocytes % 7.5 Eosinophils % 3.2 Basophils % 0.4 Nucleated Red Blood Cells % 0.0 Neutrophils # 2.6 Lymphocytes # 1.8 Monocytes # 0.4 Eosinophils # 0.2 Basophils # 0.0 Nucleated Red Blood Cells # 0.0 Urine Color LT. YELLOW Urine Clarity CLEAR Urine pH 7.0 Urine Specific [place] 1.010 Urine Ketones TRACE H Urine Nitrite NEGATIVE Urine Bilirubin NEGATIVE Urine Urobilinogen 0.2 E.U./dL Urine Leukocyte Esterase TRACE H Urine Microscopic RBC 0-2 Urine Microscopic WBC 0-2 Urine Squamous Epithelial Cells RARE Urine Hemoglobin TRACE Urine Glucose NEGATIVE Urine Total Protein NEGATIVE Sodium Level 143 Potassium Level 3.7 Chloride Level 102 Carbon Dioxide Level 29 Anion Gap 16 Blood Urea Nitrogen 9 Creatinine 0.67 Glucose Level 89 Calcium Level 9.7 Total Bilirubin 0.2 Direct Bilirubin 0.00 Indirect Bilirubin 0.2 Aspartate Amino Transf (AST/SGOT) 39 Alanine Aminotransferase (ALT/SGPT) 50 Alkaline Phosphatase 79 Total Protein 7.8 Albumin 4.5 Globulin 3.30 H Albumin/Globulin Ratio 1.36 Lipase 99 Medications Medications Current Medications Potassium Chloride/Dextrose/ Sod Cl (D5-1/2ns + KCl 20 Meq) 1,000 ml @ 100 mls/ hr Q10H IV ; Start 01/11/17 at 22:11 Ondansetron HCl (Zofran Inj) 8 mg Q6H PRN IV NAUSEA AND/OR VOMITING; Start at 22:30; Status UNV Acetaminophen (Tylenol Tab) 650 mg Q6H PRN PO PAIN LEVEL 1-3 OR FEVER; Start at 22:30 Hydromorphone HCl (Dilaudid) 0.5 mg Q2H PRN IV SEVERE PAIN LEVEL 7-10; Start at 22:30 Docusate Sodium (Colace) 100 mg Q12H PRN PO CONSTIPATION; Start 01/11/17 at 22: 30 Zolpidem Tartrate (Ambien) 5 mg QHS PRN PO SLEEP; Start 01/11/17 at 22:30 Famotidine (Pepcid Iv) 20 mg Q12 IV ; Start 01/11/17 at 22:30 Enoxaparin Sodium (Lovenox) 40 mg DAILY SC ; Start 01/12/17 at 09:00 TONE WASHINGTON MD Jan 11, 2017 22:36
[2017-01-11] MEDS: D5W-0.45 NACL + KCL 20 MEQ 1,000 ML IV SCH (22:39)
[2017-01-11] MEDS: FAMOTIDINE 20 MG INJ IV SCH (22:41)
[2017-01-11] MEDS ORDERED: ONDANSETRON INJ 8 MG in SOD CHLORIDE 0.9% 50 ML IV PRN (23:00)
[2017-01-11 23:58] VITALS: BP 112/73; RESP 16
[2017-01-12 00:22] VITALS: Ht 162.6 cm; Wt 53.2 kg
[2017-01-12] MEDS ORDERED: HYDROmorphONE 1 MG/ML SYG IV PRN (00:30)
[2017-01-12 05:32] LABS: ADD SCAN DIFF NO
[2017-01-12 05:49] LABS: BASOPHILS % 0.5 % (0.0-2.0); EOSINOPHILS # 0.1 10^3/ul (0.0-0.5); EOSINOPHILS % 3.4 % (0.0-7.0); HEMATOCRIT 34.7 % (37.0-47.0); HEMOGLOBIN 11.7 g/dl (12.0-16.0); LYMPHOCYTES # 1.3 10^3/ul (0.8-2.9); LYMPHOCYTES % 31.1 % (15.0-51.0); MEAN CORPUSCULAR HEMOGLOBIN 30.8 pg (29.0-33.0); MEAN CORPUSCULAR HGB CONC 33.7 g/dl (32.0-37.0); MEAN CORPUSCULAR VOLUME 91.3 fl (82.0-101.0); MEAN PLATELET VOLUME 10.8 fl (7.4-10.4); MONOCYTE # 0.4 10^3/ul (0.3-0.9); MONOCYTES % 9.6 % (0.0-11.0); NEUTROPHIL # 2.3 10^3/ul (1.6-7.5); NEUTROPHILS % 55.2 % (39.0-77.0); PLATELET COUNT 201 10^3/UL (140-415); RED CELL DISTRIBUTION WIDTH 11.2 % (11.5-14.5); WHITE BLOOD COUNT 4.2 10^3/ul (4.8-10.8)
[2017-01-12 06:21] LABS: POTASSIUM 3.9 mmol/L (3.5-5.1)
[2017-01-12 06:23] LABS: CREATININE 0.68 mg/dl (0.44-1.00)
[2017-01-12 06:24] LABS: CALCIUM 8.9 mg/dl (8.4-10.2)
[2017-01-12 07:53] VITALS: BP 108/68; RESP 18
[2017-01-12] MEDS: FAMOTIDINE 20 MG INJ IV SCH ×2 (08:53→22:44)
[2017-01-12] MEDS: D5W-0.45 NACL + KCL 20 MEQ 1,000 ML IV SCH (08:53)
[2017-01-12] MEDS: ENOXAPARIN 40 MG/0.4 ML SYG SC SCH (08:53)
--- NOTE | 2017-01-12 12:31 | CONS ---
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 PATH- Serous high grade carcinoma. HISTOLOGIC GRADE: G3. EXTENT OF INVOLVEMENT OF OTHER TISSUES/ORGANS: Right ovary: Involved. Left ovary: Involved. Right fallopian tube: Involved. Left fallopian tube: Involved. Omentum: Involved. Uterus: Involved, serosa. Peritoneum: Involved. Other organs: Appendix and sigmoid colon are involved. PATHOLOGIC STAGING (pTNM): pT3c pN1a. FIGO STAGE: IIIC. OUTPT CHEMO- ONLY 1 CYCLE WAS GIVEN ON AUG 27, 2016 WITH CARBO/TAXOL THEN PT CHANGE HER PLACE OF LIVING, HER LOST A JOB, SHE MOVED TO [place], HAD A LOT OF SOCIAL PROBLEMS , NEVER ESTABLISHED F-UP WITH ONCOLOGIST AT [place] , HER INSURANCEV HAS BEEN CHANGED NOW -WITH DIS PROGRESSION, SEEKING CONTINUATION OF TREATMENT. NEED TO START CHEMO KATIA D/W PT IN DETAILS SHE AGREE TO START CHEMO DIS PROGRESSION WITH New subtle nodularity along the anterior surface of the left hepatic lobe, concerning for possible serosal malignant implants New soft tissue nodularity is also seen in the left upper quadrant, adjacent to the distal transverse colon and splenic flexure, concerning for possible peritoneal carcinomatosis versus omental implants Minimally increased small nonspecific pelvic fluid in the presacral region may be physiologic, most likely malignant 2. Gastrointestinal prophylaxis, PPI. 3. Deep venous thrombosis prophylaxis with Lovenox. 4. JEHOVAH WITNESS START IV IRON PROCRIT POST CHEMO Problems: Consultation Date/Type/Reason Admit Date/Time Jan 11, 2017 at 21:52 Initial Consult Date 01/11/17 [facility]ation[facility] Reason for Consultation ovarian cancer Referring Provider: ROSEY GARCIA MD 24 HR Interval Summary Free Text/Dictation 36-year-old female with a history of ovarian carcinoma and hysterectomy in jul 2016 presenting to the emergency department complaining of generalized abdominal pain for the past 2 weeks with nausea and vomiting. Patient states that she is unable to keep any food down because of the pain and vomiting. Patient states that she has not tried any medications for this. Patient states that she was seen here 4 days ago received a CT scan of her abdomen and blood work. PT RECEIVED TREATMENT OUTPT - ONLY 1 CYCLE WAS GIVEN ON AUG 27, 2016 WITH CARBO/TAXOL THEN PT CHANGE HER PLACE OF LIVING, HER LOST A JOB, SHE MOVED TO [place], HAD A LOT OF SOCIAL PROBLEMS , NEVER ESTABLISHED F-UP WITH ONCOLOGIST AT [place] , HER INSURANCE HAS BEEN CHANGED NOW -WITH DIS PROGRESSION, SEEKING CONTINUATION OF TREATMENT. NEED TO START CHEMO KATIA D/W PT IN DETAILS SHE AGREE TO START CHEMO NOW WITH N, V , + PAIN Exam/Review of Systems Vital Signs Vitals Vital Signs Date Time Temp Pulse Resp B/P Pulse Ox O2 Delivery O2 Flow Rate FiO2 01/12/17 07:53 98.2 65 18 108/68 99 01/11/17 22:30 Room Air Intake and Output 01/11/17 01/11/17 01/12/17 15:00 23:00 07:00 Intake Total 650 ml Output Total 800 ml Balance -150 ml Exam GENERAL: well-developed/well-nourished, in no apparent distress, non-toxic appearing HENT: NC/AT, moist mucous membranes EYES: Conjunctiva normal NECK: Supple, no lymphadenopathy PULM: CTA bilaterally, no rales, rhonchi, or wheezing heard CV: Normal S1S2, RRR, good capillary refill GI: tender to palpation in all quadrants +guarding Normal bowel sounds, no masses or organomegaly felt on exam No gross peritonitis, no bruits Negative Rovsing, negative Monge, negative McBurney's point, Negative CVAT BACK: No masses EXT: No clubbing, cyanosis, or edema NEURO: Alert and Orientated SKIN: Intact, normal turgor PSYCH: tearful Results Result Diagram: 01/12/17 0415 01/12/17 0415 Results 24 hrs Laboratory Tests Test 01/11/17 19:50 01/12/17 04:15 White Blood Count 5.0 4.2 L Red Blood Count 3.90 L 3.80 L Hemoglobin 12.0 11.7 L Hematocrit 35.5 L 34.7 L Mean Corpuscular Volume 91.0 91.3 Mean Corpuscular Hemoglobin 30.8 30.8 Mean Corpuscular Hemoglobin Concent 33.8 33.7 Red Cell Distribution Width 11.3 L 11.2 L Platelet Count 220 201 Mean Platelet Volume 10.3 10.8 H Neutrophils % 52.4 55.2 Lymphocytes % 36.3 31.1 Monocytes % 7.5 9.6 Eosinophils % 3.2 3.4 Basophils % 0.4 0.5 Nucleated Red Blood Cells % 0.0 0.0 Neutrophils # 2.6 2.3 Lymphocytes # 1.8 1.3 Monocytes # 0.4 0.4 Eosinophils # 0.2 0.1 Basophils # 0.0 0.0 Nucleated Red Blood Cells # 0.0 0.0 Urine Color LT. YELLOW Urine Clarity CLEAR Urine pH 7.0 Urine Specific [place] 1.010 Urine Ketones TRACE H Urine Nitrite NEGATIVE Urine Bilirubin NEGATIVE Urine Urobilinogen 0.2 E.U./dL Urine Leukocyte Esterase TRACE H Urine Microscopic RBC 0-2 Urine Microscopic WBC 0-2 Urine Squamous Epithelial Cells RARE Urine Hemoglobin TRACE Urine Glucose NEGATIVE Urine Total Protein NEGATIVE Sodium Level 143 140 Potassium Level 3.7 3.9 Chloride Level 102 105 Carbon Dioxide Level 29 28 Anion Gap 16 11 Blood Urea Nitrogen 9 6 L Creatinine 0.67 0.68 Glucose Level 89 109 Calcium Level 9.7 8.9 Total Bilirubin 0.2 Direct Bilirubin 0.00 Indirect Bilirubin 0.2 Aspartate Amino Transf (AST/SGOT) 39 Alanine Aminotransferase (ALT/SGPT) 50 Alkaline Phosphatase 79 Total Protein 7.8 Albumin 4.5 Globulin 3.30 H Albumin/Globulin Ratio 1.36 Lipase 99 CA 125 Antigen 204.0 H Medications Medications Current Medications Potassium Chloride/Dextrose/ Sod Cl (D5-1/2ns + KCl 20 Meq) 1,000 ml @ 100 mls/ hr Q10H IV Last administered on 01/12/17 08:53; Admin Dose 100 MLS/HR; Start 01/11/17 at 22:11 Acetaminophen (Tylenol Tab) 650 mg Q6H PRN PO PAIN LEVEL 1-3 OR FEVER; Start at 22:30 Docusate Sodium (Colace) 100 mg Q12H PRN PO CONSTIPATION; Start 01/11/17 at 22: 30 Zolpidem Tartrate (Ambien) 5 mg QHS PRN PO SLEEP; Start 01/11/17 at 22:30 Famotidine (Pepcid Iv) 20 mg Q12 IV Last administered on 01/12/17 08:53; Admin Dose 20 MG; Start 01/11/17 at 22:30 Enoxaparin Sodium (Lovenox) 40 mg DAILY SC ; Start 01/12/17 at 09:00 Hydromorphone HCl 1 mg 1 mg Q2H PRN IV SEVERE PAIN LEVEL 7-10; Start 01/12/17 at 00:30 Ondansetron HCl/ Sodium Chloride (Zofran Inj/NS) 54 ml @ 216 mls/hr Q6H PRN IV NAUSEA AND/OR VOMITING; Start 01/11/17 at 23:00 Procedures Procedures [place] [id number] Radiology Main Line: [phone] DIAGNOSTIC IMAGING REPORT Patient: EZEKIEL GARCIA : 1980 Age: 36 Sex: F MR #: [id number] DOS: 01/06/17 0943 Ordering MD: INO MARCUS MD Location: E/R Room/Bed: PROCEDURE: CT Abdomen and Pelvis with contrast. CLINICAL INDICATION: Status post hysterectomy for malignancy, now with lower pelvic pain. Concern for recurrent/residual disease. TECHNIQUE: CT scan of the abdomen and pelvis with contrast was performed on a multi-detector high-resolution CT scanner. The patient was scanned following the uncomplicated intravenous administration of 100 cc of Omnipaque 300. Coronal and sagittal reformatted images were obtained from the axial source images. One or more of the following dose reduction techniques were used: Automated exposure control, adjustment of the mA and/or kV according to patient size, use of iterative reconstruction technique. Images were reviewed on a high -resolution PACS workstation. The total exam CTDI equals 7.64 mGy and the total exam DLP equals 411.57 mGy-cm. COMPARISON: CT from 10/20/2016. FINDINGS: The visualized lung bases are unremarkable. The liver is homogenous in attenuation. There are no focal liver lesions. There is no intrahepatic or extrahepatic biliary ductal dilatation. New subtle nodularity is seen along the anterior and serosal surface of the left hepatic lobe (images 31-39 of series 3). The gallbladder is within normal limits. The spleen, pancreas, and adrenal glands are within normal limits. The kidneys are symmetric and without focal lesions. Punctate bilateral renal calculi are again noted. There is no hydronephrosis. Distension of the stomach and multiple small bowel loops seen previously is no longer identified. Anastomotic sutures are again noted in the sigmoid colon. There is no evidence of a bowel obstruction or stricture at the anastomotic site. New soft tissue nodularity is seen in the left upper quadrant adjacent to the distal transverse colon and splenic flexure of the colon, concerning for peritoneal carcinomatosis (images 29-39 of series 601 and image 23 of series 3) . The largest region measures 1.6 x 3.0 cm. The bladder is within normal limits. The uterus is absent. There is no free air. There small pelvic free fluid, increased since the prior CT. There is also new pelvic free fluid in the anterior left pelvis. A small nonenhancing 1.7 x 0.9 cm left iliac chain lymph node is not significantly change since the prior exam. Otherwise, there are no enlarged intrapelvic or inguinal lymph nodes. The aorta is within normal limits. Osseous and soft tissue structures are unremarkable. IMPRESSION: 1. New subtle nodularity along the anterior surface of the left hepatic lobe, concerning for possible serosal malignant implants (pictured below). New soft tissue nodularity is also seen in the left upper quadrant, adjacent to the distal transverse colon and splenic flexure, concerning for possible peritoneal carcinomatosis versus omental implants (also pictured below). 2. Mildly prominent 1.7 x 0.9 cm left iliac chain lymph node, not significantly changed. 3. Minimally increased small nonspecific pelvic fluid in the presacral region may be physiologic, malignant or infectious in etiology. 4. Punctate renal calculi are again identified bilaterally. 5. Anastomotic sutures are again noted in the sigmoid colon without evidence of a bowel obstruction or stricture at the anastomotic site. 6. The uterus is absent consistent with the reported history. RPTAT: EE .Brodie Capps MD, Date Time Electronically viewed and signed by .Brodie Capps MD, on 01/06/2017 12:15 .A/ CC: INO MARCUS VERA M MD Jan 12, 2017 12:31
[2017-01-12] MEDS ORDERED: ONDANSETRON 4 MG INJ IV PRN (14:00)
[2017-01-12] MEDS: SOD FERRIC GLUC COMPLX 125 MG in SOD CHLORIDE 0.9% 100 ML IVPB SCH (14:45)
--- NOTE | 2017-01-12 15:58 | HP ---
DATE OF ADMISSION: 01/11/2017 PRIMARY CARE PHYSICIAN: Dr. Mele hudson. PRIMARY ONCOLOGIST: TONE ENRIQUEZ MD. CHIEF COMPLAINT ON ADMISSION: Abdominal pain. HISTORY OF PRESENT ILLNESS: This is a 36-year-old female with history of metastatic ovarian cancer status post debulking for peritoneal carcinomatosis was here back in July of 2016 and had surgery with Dr. Noonan. The patient reports that she did have 1 session of chemotherapy as an outpatien t in August then after that she was lost to followup after she moved to [place]. She is now back into the area and she presented to the emergency department 1 week ago with complaint of abdominal pain. She had a CAT scan of the abdomen and pelvis at that time that showed new carcinomatosis and mets in the left upper quadrant which is corresponding to the area of pain at this point. The patie nt was supposed to follow up with oncology as an outpatient. Apparently she has been having issues resuming her chemotherapy. She re-presented to the emergency department yesterday evening with comp laint of abdominal pain. She was admitted for observation and monitoring, but it seems to be that w hat she needed it was to initiate chemotherapy. This morning she had a CA-125 check and it was elev ated at 204 along with new lesions seen on CAT scan consistent with ongoing metastatic ovarian cance r. Dr. Tone Enriquez, her oncologist did see her today for scheduled chemotherapy already. The pa tient denies any vomiting. She has been having ongoing chronic nausea. She denies any fevers, chil ls, chest pain, shortness of breath, or cough. She denies any diarrhea, constipation, dysuria or ur inary frequency. She is tolerating p.o. today and she is to start chemotherapy tonight. ALLERGIES: NO KNOWN ALLERGIES. PAST MEDICAL HISTORY: 1. Metastatic papillary serous carcinoma, status post debulking surgery back in July of 2016 wit h removal of the uterus, ovaries and she also had removal of a right upper quadrant mass according t o her and further debulking. This was done by Dr. Noonan 2. Chronic nausea. PAST SURGICAL HISTORY: 1. Status post debulking surgery for metastatic papillary serous carcinoma with removal of uterus, ovaries and a couple of metastatic masses. This was in July of 2016. 2. Status post CHANGE MANAGER surgery apparently at least 6 years ago for a misdiagnosed ectopic . SOCIAL HISTORY: The patient does not smoke, drink alcohol or use any drugs. She moved back to the [place] recently. OUTPATIENT MEDICATIONS: None. REVIEW OF SYSTEMS: As per HPI. PHYSICAL EXAMINATION: VITAL SIGNS: Temperature is 98.2, heart rate of 65, respiratory rate 18, blood pressure 108/68. Th e patient is saturating 99% on room air. GENERAL: She is a pleasant young lady in no acute distress currently, she denies any abdominal pain . HEENT: Pupils are equally round and reactive to light. Extraocular muscles are intact. Anicteric sclerae. NECK: No JVD, no thyromegaly noted. HEART: Regular rate and rhythm. No murmur, rubs, or gallops. LUNGS: Clear to auscultation bilaterally. ABDOMEN: Soft, nontender, nondistended. Bowel sounds are present. Regarding the abdomen again she does not have much tenderness to palpation. Abdomen is soft, nondistended. She has some tendernes s to palpation in left upper quadrant and very mild. She has a mid abdominal scar from her surgery back in July of 2016. No suprapubic tenderness. EXTREMITIES: No edema, clubbing or cyanosis. NEUROLOGIC: Grossly intact. LABORATORY DATA: White blood cell count is 4.2, hemoglobin 11.7, hematocrit 37.4, platelet count of 201. Chemistry with a sodium of 140, potassium 3.9, chloride 105, bicarbonate 28, BUN 6, creatinin e 0.68, glucose of 109, calcium of 8.9. Liver profile within normal limits. Lipase of 99, CA-125 i s up to 204. Urinalysis shows trace ketones, trace leukocyte esterase, otherwise negative. RADIOLOGICAL DATA: CAT scan of the abdomen and pelvis. This was on 01/06/2017 showed new subtle no dularity along the anterior surface of the left hepatic lobe concerning for possible serosal maligna nt implant. New soft tissue nodularity also seen in the left upper quadrant adjacent to the distal transverse colon and splenic flexure concerning for possible peritoneal carcinomatosis versus omenta l implant. Mildly prominent left iliac chain lymph node, not significantly changed, minimally incre ased, small nonspecific pelvic fluid in the presacral region may be physiologic malignant or infecti ous in nature. Punctate renal calculi, anastomotic sutures stable. Status post hysterectomy. ASSESSMENT AND PLAN: This is a 36-year-old female with: 1. Metastatic ovarian cancer seems to have still some carcinomatosis left behind. She apparently h ad 1 dose of chemo in August then was lost to followup and currently has been seen by Dr. Rachael roberts today given her elevated CA-125 and the findings on CAT scan and ongoing pain. This is all consis tent with ongoing metastatic disease. Therefore chemotherapy has been resumed as of today. I will clarify with Dr. Enriquez. So far she is supposed to get 1 dose of chemotherapy today and will be discharged for further outpatient treatment. 2. Prophylaxis: Pepcid for gastrointestinal prophylaxis. Lovenox for deep venous thrombosis proph ylaxis. DISPOSITION: Chemotherapy today and discharge planning in the next 24 hours. Dictated By: MARCO ANTONIO RODRIGUEZ/TRAV Conf#: [id number] DID#: [id number]
[2017-01-12] MEDS ORDERED: LIDOCAINE 1% (MDV) 20 ML INJ SC ONE (16:30)
[2017-01-12 19:49] VITALS: BP 110/59; RESP 17
[2017-01-13] MEDS: D5W-0.45 NACL + KCL 20 MEQ 1,000 ML IV SCH ×3 (03:52→14:11)
[2017-01-13 05:34] LABS: ADD SCAN DIFF NO
[2017-01-13 05:47] LABS: BASOPHILS % 0.5 % (0.0-2.0); EOSINOPHILS # 0.2 10^3/ul (0.0-0.5); EOSINOPHILS % 4.2 % (0.0-7.0); HEMATOCRIT 34.9 % (37.0-47.0); HEMOGLOBIN 11.9 g/dl (12.0-16.0); LYMPHOCYTES # 1.3 10^3/ul (0.8-2.9); LYMPHOCYTES % 30.1 % (15.0-51.0); MEAN CORPUSCULAR HGB CONC 34.1 g/dl (32.0-37.0); MEAN CORPUSCULAR VOLUME 90.9 fl (82.0-101.0); MEAN PLATELET VOLUME 10.9 fl (7.4-10.4); MONOCYTE # 0.4 10^3/ul (0.3-0.9); MONOCYTES % 9.1 % (0.0-11.0); NEUTROPHIL # 2.4 10^3/ul (1.6-7.5); NEUTROPHILS % 55.9 % (39.0-77.0); PLATELET COUNT 209 10^3/UL (140-415); RED BLOOD COUNT 3.84 10^6/ul (4.20-5.40); RED CELL DISTRIBUTION WIDTH 11.5 % (11.5-14.5); WHITE BLOOD COUNT 4.3 10^3/ul (4.8-10.8)
[2017-01-13 06:31] LABS: ALBUMIN/GLOBULIN RATIO 1.33; BILIRUBIN,INDIRECT 0.2 mg/dl (0-1.1); BILIRUBIN,TOTAL 0.2 mg/dl (0.2-1.3); CREATININE 0.63 mg/dl (0.44-1.00)
[2017-01-13 06:32] LABS: CALCIUM 9.3 mg/dl (8.4-10.2)
[2017-01-13 06:57] LABS: PHOSPHORUS 4.6 mg/dl (2.5-4.9)
[2017-01-13 06:58] LABS: MAGNESIUM 1.9 mg/dl (1.7-2.5)
[2017-01-13] MEDS: ENOXAPARIN 40 MG/0.4 ML SYG SC SCH (08:23)
[2017-01-13] MEDS: ACETAMINOPHEN 325 MG TAB PO PRN ×2 (08:23→16:47)
[2017-01-13] MEDS: FAMOTIDINE 20 MG INJ IV SCH ×2 (08:23→20:32)
[2017-01-13 08:52] VITALS: BP 98/52; RESP 16
--- NOTE | 2017-01-13 09:53 | PN ---
Date/Time of Note Date/Time of Note DATE: 01/13/17 TIME: 09:24 Assessment/Plan VTE Prophylaxis VTE Prophylaxis Intervention: LMWH Lines/Catheters IV Catheter Type (from Nrs): Peripheral IV Assessment/Plan Assessment/Plan 36-year-old female with: 1. Metastatic ovarian cancer with still remaining carcinomatosis. Apparently had 1 dose of chemo in August then was lost to followup and currently back with Dr. Enriquez. New lesions on CT and elevated CA-125 Patient awaiting PICC line placement and initiation of chemo inpatient I will clarify with Dr. Enriquez. So far she is supposed to get 1 dose of chemotherapy today and will be discharged for further outpatient treatment. Prophylaxis: Pepcid for gastrointestinal prophylaxis. Lovenox for deep venous thrombosis prophylaxis. DISPOSITION: Chemotherapy today after PICC line placement and discharge planning in the next 24 hours. Subjective 24 Hr Interval Summary Free Text/Dictation Patient awaiting to initiate chemo but PICC line still not in Remains stable Unchanged pain Exam/Review of Systems Vital Signs Vitals Vital Signs Date Time Temp Pulse Resp B/P Pulse Ox O2 Delivery O2 Flow Rate FiO2 01/13/17 08:52 97.8 58 16 98/52 96 01/11/17 22:30 Room Air Intake and Output 01/12/17 01/12/17 01/13/17 15:00 23:00 07:00 Intake Total 1560 ml 1960 ml Output Total 1700 ml 2000 ml Balance -140 ml -40 ml Exam Constitutional: alert, oriented, well developed Respiratory: clear to auscultation, normal air movement Cardiovascular: nl pulses, regular rate and rhythm Gastrointestinal: soft, tender (LUQ to LLQ) Musculoskeletal: nl extremities to inspection Extremities: normal pulses, other (no edema, clubbing or cyanosis ) Neurological: EXCEL EXPERT II-XII intact, nl mental status, nl speech, nl strength Results Result Diagram: 01/13/17 0415 01/13/17 0415 Results 24 hrs Laboratory Tests Test 01/13/17 04:15 White Blood Count 4.3 L Red Blood Count 3.84 L Hemoglobin 11.9 L Hematocrit 34.9 L Mean Corpuscular Volume 90.9 Mean Corpuscular Hemoglobin 31.0 Mean Corpuscular Hemoglobin Concent 34.1 Red Cell Distribution Width 11.5 Platelet Count 209 Mean Platelet Volume 10.9 H Neutrophils % 55.9 Lymphocytes % 30.1 Monocytes % 9.1 Eosinophils % 4.2 Basophils % 0.5 Nucleated Red Blood Cells % 0.0 Neutrophils # 2.4 Lymphocytes # 1.3 Monocytes # 0.4 Eosinophils # 0.2 Basophils # 0.0 Nucleated Red Blood Cells # 0.0 Sodium Level 139 Potassium Level 4.0 Chloride Level 105 Carbon Dioxide Level 25 Anion Gap 13 Blood Urea Nitrogen 8 Creatinine 0.63 Glucose Level 100 Calcium Level 9.3 Phosphorus Level 4.6 Magnesium Level 1.9 Total Bilirubin 0.2 Direct Bilirubin 0.00 Indirect Bilirubin 0.2 Aspartate Amino Transf (AST/SGOT) 38 Alanine Aminotransferase (ALT/SGPT) 45 Alkaline Phosphatase 71 Total Protein 7.0 Albumin 4.0 Globulin 3.00 Albumin/Globulin Ratio 1.33 Medications Medications Current Medications Potassium Chloride/Dextrose/ Sod Cl (D5-1/2ns + KCl 20 Meq) 1,000 ml @ 100 mls/ hr Q10H IV Last administered on 01/13/17 03:52; Admin Dose 100 MLS/HR; Start 01/11/17 at 22:11 Acetaminophen (Tylenol Tab) 650 mg Q6H PRN PO PAIN LEVEL 1-3 OR FEVER Last administered on 01/13/17 08:23; Admin Dose 650 MG; Start 01/11/17 at 22:30 Docusate Sodium (Colace) 100 mg Q12H PRN PO CONSTIPATION; Start 01/11/17 at 22: 30 Zolpidem Tartrate (Ambien) 5 mg QHS PRN PO SLEEP; Start 01/11/17 at 22:30 Famotidine (Pepcid Iv) 20 mg Q12 IV Last administered on 01/13/17 08:23; Admin Dose 20 MG; Start 01/11/17 at 22:30 Enoxaparin Sodium (Lovenox) 40 mg DAILY SC ; Start 01/12/17 at 09:00 Hydromorphone HCl 1 mg 1 mg Q2H PRN IV SEVERE PAIN LEVEL 7-10; Start 01/12/17 at 00:30 Ferric Sodium Gluconate Complex/ Sodium Chloride (Ferrlecit/NS) 110 ml @ 110 mls/hr Q24H IVPB Last administered on 01/12/17 14:45; Admin Dose 110 MLS/HR; Start 01/12/17 at 14:30; Stop 01/19/17 at 15:29 Ondansetron HCl (Zofran Inj) 4 mg Q4H PRN IV NAUSEA AND/OR VOMITING; Start at 14:00 MARCO ANTONIO STOUT Jan 13, 2017 09:34
--- NOTE | 2017-01-13 14:15 | RADRPT ---
PROCEDURE: XR Chest. CLINICAL INDICATION: Check PICC line position. TECHNIQUE: Single frontal view. COMPARISON: 08/28/2016. FINDINGS: There is a left arm PICC line with the tip in the lower superior vena cava. The lungs are clear. The heart size is normal. There is no pleural effusion. There is no pneumothorax. IMPRESSION: 1. Satisfactory position of left arm PICC line. 2. Otherwise normal chest radiograph. RPTAT: QQ .Paul Jones MD, MD Date Time Electronically viewed and signed by .Paul Jones MD, MD on 01/13/2017 14:15 .R/
--- NOTE | 2017-01-13 14:16 | RADRPT ---
PROCEDURE: Ultrasound guidance for placement of needle in left upper extremity vein. CLINICAL INDICATION: Venous access. TECHNIQUE: Limited sonography of the left upper extremity was performed. Ultrasound images were recorded and s tored in the patient's medical record. COMPARISON: None. FINDINGS: The ultrasound images demonstrate a patent left upper extremity vein. The PICC line was inserted by the PICC line nurse. IMPRESSION: 1. Ultrasound guidance for a needle placement in a left upper extremity vein. 2. The left upper extremity vein is patent. RPTAT: QQ .Paul Jones MD, MD Date Time Electronically viewed and signed by .Paul Jones MD, MD on 01/13/2017 14:16 .R/
[2017-01-13] MEDS: SOD FERRIC GLUC COMPLX 125 MG in SOD CHLORIDE 0.9% 100 ML IVPB SCH (14:48)
[2017-01-13] MEDS ORDERED: SOD CHLORIDE 0.9% 100 ML ONE (15:06)
[2017-01-13 19:36] VITALS: BP 116/72; PULSE 70; RESP 18
--- NOTE | 2017-01-13 22:24 | CONS ---
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 PATH- Serous high grade carcinoma. HISTOLOGIC GRADE: G3. EXTENT OF INVOLVEMENT OF OTHER TISSUES/ORGANS: Right ovary: Involved. Left ovary: Involved. Right fallopian tube: Involved. Left fallopian tube: Involved. Omentum: Involved. Uterus: Involved, serosa. Peritoneum: Involved. Other organs: Appendix and sigmoid colon are involved. PATHOLOGIC STAGING (pTNM): pT3c pN1a. FIGO STAGE: IIIC. OUTPT CHEMO- ONLY 1 CYCLE WAS GIVEN ON AUG 27, 2016 WITH CARBO/TAXOL THEN PT CHANGE HER PLACE OF LIVING, HER LOST A JOB, SHE MOVED TO [place], HAD A LOT OF SOCIAL PROBLEMS , NEVER ESTABLISHED F-UP WITH ONCOLOGIST AT [place] , HER INSURANCEV HAS BEEN CHANGED NOW -WITH DIS PROGRESSION, SEEKING CONTINUATION OF TREATMENT. NEED TO START CHEMO KATIA D/W PT IN DETAILS SHE AGREE TO START CHEMO DIS PROGRESSION WITH New subtle nodularity along the anterior surface of the left hepatic lobe, concerning for possible serosal malignant implants New soft tissue nodularity is also seen in the left upper quadrant, adjacent to the distal transverse colon and splenic flexure, concerning for possible peritoneal carcinomatosis versus omental implants Minimally increased small nonspecific pelvic fluid in the presacral region may be physiologic, most likely malignant 2. Gastrointestinal prophylaxis, PPI. 3. Deep venous thrombosis prophylaxis with Lovenox. 4. JEHOVAH WITNESS START IV IRON PROCRIT POST CHEMO Problems: Consultation Date/Type/Reason Admit Date/Time Jan 13, 2017 at 09:22 Initial Consult Date 01/11/17 Type of Consultation: HEMEON Referring Provider: ROSEY GARCIA MD 24 HR Interval Summary Free Text/Dictation all noted for picc line today started on IV IRON Exam/Review of Systems Vital Signs Vitals Vital Signs Date Time Temp Pulse Resp B/P Pulse Ox O2 Delivery O2 Flow Rate FiO2 01/13/17 19:36 98.0 70 18 116/72 98 Room Air Intake and Output 301/12/17 01/13/17 15:00 23:00 07:00 Intake Total 1560 ml 1960 ml Output Total 1700 ml 2000 ml Balance -140 ml -40 ml Exam GENERAL: well-developed/well-nourished, in no apparent distress, non-toxic appearing HENT: NC/AT, moist mucous membranes EYES: Conjunctiva normal NECK: Supple, no lymphadenopathy PULM: CTA bilaterally, no rales, rhonchi, or wheezing heard CV: Normal S1S2, RRR, good capillary refill GI: tender to palpation in all quadrants +guarding Normal bowel sounds, no masses or organomegaly felt on exam No gross peritonitis, no bruits Negative Rovsing, negative Monge, negative McBurney's point, Negative CVAT BACK: No masses EXT: No clubbing, cyanosis, or edema NEURO: Alert and Orientated SKIN: Intact, normal turgor PSYCH: tearful Results Result Diagram: 01/13/17 0415 01/13/17 0415 Results 24 hrs Laboratory Tests Test 01/13/17 04:15 White Blood Count 4.3 L Red Blood Count 3.84 L Hemoglobin 11.9 L Hematocrit 34.9 L Mean Corpuscular Volume 90.9 Mean Corpuscular Hemoglobin 31.0 Mean Corpuscular Hemoglobin Concent 34.1 Red Cell Distribution Width 11.5 Platelet Count 209 Mean Platelet Volume 10.9 H Neutrophils % 55.9 Lymphocytes % 30.1 Monocytes % 9.1 Eosinophils % 4.2 Basophils % 0.5 Nucleated Red Blood Cells % 0.0 Neutrophils # 2.4 Lymphocytes # 1.3 Monocytes # 0.4 Eosinophils # 0.2 Basophils # 0.0 Nucleated Red Blood Cells # 0.0 Sodium Level 139 Potassium Level 4.0 Chloride Level 105 Carbon Dioxide Level 25 Anion Gap 13 Blood Urea Nitrogen 8 Creatinine 0.63 Glucose Level 100 Calcium Level 9.3 Phosphorus Level 4.6 Magnesium Level 1.9 Total Bilirubin 0.2 Direct Bilirubin 0.00 Indirect Bilirubin 0.2 Aspartate Amino Transf (AST/SGOT) 38 Alanine Aminotransferase (ALT/SGPT) 45 Alkaline Phosphatase 71 Total Protein 7.0 Albumin 4.0 Globulin 3.00 Albumin/Globulin Ratio 1.33 Medications Medications Current Medications Potassium Chloride/Dextrose/ Sod Cl (D5-1/2ns + KCl 20 Meq) 1,000 ml @ 100 mls/ hr Q10H IV Last administered on 3/28/17at 03:52; Admin Dose 100 MLS/HR; Start 01/11/17 at 22:11 Acetaminophen (Tylenol Tab) 650 mg Q6H PRN PO PAIN LEVEL 1-3 OR FEVER Last administered on 01/13/17 16:47; Admin Dose 650 MG; Start 01/11/17 at 22:30 Docusate Sodium (Colace) 100 mg Q12H PRN PO CONSTIPATION; Start 01/11/17 at 22: 30 Zolpidem Tartrate (Ambien) 5 mg QHS PRN PO SLEEP; Start 01/11/17 at 22:30 Famotidine (Pepcid Iv) 20 mg Q12 IV Last administered on 01/13/17 20:32; Admin Dose 20 MG; Start 01/11/17 at 22:30 Enoxaparin Sodium (Lovenox) 40 mg DAILY SC ; Start 01/12/17 at 09:00 Hydromorphone HCl 1 mg 1 mg Q2H PRN IV SEVERE PAIN LEVEL 7-10; Start 01/12/17 at 00:30 Ferric Sodium Gluconate Complex/ Sodium Chloride (Ferrlecit/NS) 110 ml @ 110 mls/hr Q24H IVPB Last administered on 01/13/17 14:48; Admin Dose 110 MLS/HR; Start 01/12/17 at 14:30; Stop 01/19/17 at 15:29 Ondansetron HCl (Zofran Inj) 4 mg Q4H PRN IV NAUSEA AND/OR VOMITING; Start at 14:00 IV Flush (NS 10 ml) 10 ml PRN PRN IV IV PROTOCOL; Start 01/13/17 at 14:30 TONE WASHINGTON MD Jan 13, 2017 22:23
[2017-01-14] VITALS (10 sets, daily range): BP systolic 99–120; BP diastolic 51–73; PULSE 53–70; RESP 16–20
[2017-01-14] MEDS: D5W-0.45 NACL + KCL 20 MEQ 1,000 ML IV SCH ×2 (00:04→09:17)
[2017-01-14 05:02] LABS: ADD SCAN DIFF NO
[2017-01-14 05:21] LABS: BASOPHILS % 0.4 % (0.0-2.0); EOSINOPHILS # 0.2 10^3/ul (0.0-0.5); EOSINOPHILS % 4.9 % (0.0-7.0); HEMATOCRIT 35.5 % (37.0-47.0); HEMOGLOBIN 11.8 g/dl (12.0-16.0); LYMPHOCYTES # 1.6 10^3/ul (0.8-2.9); LYMPHOCYTES % 34.5 % (15.0-51.0); MEAN CORPUSCULAR HEMOGLOBIN 30.3 pg (29.0-33.0); MEAN CORPUSCULAR HGB CONC 33.2 g/dl (32.0-37.0); MEAN CORPUSCULAR VOLUME 91.3 fl (82.0-101.0); MEAN PLATELET VOLUME 10.8 fl (7.4-10.4); MONOCYTE # 0.4 10^3/ul (0.3-0.9); MONOCYTES % 8.7 % (0.0-11.0); NEUTROPHIL # 2.4 10^3/ul (1.6-7.5); NEUTROPHILS % 51.5 % (39.0-77.0); PLATELET COUNT 200 10^3/UL (140-415); RED BLOOD COUNT 3.89 10^6/ul (4.20-5.40); RED CELL DISTRIBUTION WIDTH 11.5 % (11.5-14.5); WHITE BLOOD COUNT 4.7 10^3/ul (4.8-10.8)
[2017-01-14 05:27] LABS: MAGNESIUM 1.8 mg/dl (1.7-2.5)
[2017-01-14 05:29] LABS: POTASSIUM 4.3 mmol/L (3.5-5.1)
[2017-01-14 05:31] LABS: CREATININE 0.61 mg/dl (0.44-1.00)
[2017-01-14 05:32] LABS: CALCIUM 9.3 mg/dl (8.4-10.2)
[2017-01-14] MEDS: ENOXAPARIN 40 MG/0.4 ML SYG SC SCH ×2 (09:00→09:01)
[2017-01-14] MEDS: FAMOTIDINE 20 MG INJ IV SCH ×2 (09:00→20:37)
--- NOTE | 2017-01-14 11:22 | PN ---
Date/Time of Note Date/Time of Note DATE: 01/14/17 TIME: 11:08 Assessment/Plan VTE Prophylaxis VTE Prophylaxis Intervention: LMWH Lines/Catheters IV Catheter Type (from Nrs): PICC Line Central line still needed: Yes (for chemo ) Assessment/Plan Assessment/Plan 36-year-old female with: 1. Metastatic ovarian cancer with still remaining carcinomatosis. Apparently had 1 dose of chemo in August then was lost to followup and currently back with Dr. Enriquez. New lesions on CT and elevated CA-125 Patient s/p PICC line placement yesterday To start chemo, RN available today and still waiting on pharmacy to send meds Discussed with Dr. Enriquez, she is to get 1 dose of chemotherapy today and will be discharged for further outpatient treatment by tomorrow. 2. Pain post PICC line placement, no edema or swelling at PICC line site and infusing well. PICC line in satisfactory position on XR post placement. Monitor Prophylaxis: Pepcid for gastrointestinal prophylaxis. Lovenox for deep venous thrombosis prophylaxis. DISPOSITION: PICC line in place, chemotherapy today and discharge planning in the next 24 hours. Subjective 24 Hr Interval Summary Free Text/Dictation Patient complaining about new PICC line site and feeling of "nerve pain" during placement Chemo to start today Exam/Review of Systems Vital Signs Vitals Vital Signs Date Time Temp Pulse Resp B/P Pulse Ox O2 Delivery O2 Flow Rate FiO2 01/14/17 07:00 98.2 60 18 102/51 97 01/13/17 19:36 Room Air Intake and Output 01/13/17 01/13/17 01/14/17 15:00 23:00 07:00 Intake Total 1250 ml 1700 ml Output Total 1400 ml Balance 1250 ml 300 ml Exam Constitutional: alert, oriented, well developed Respiratory: clear to auscultation, normal air movement Cardiovascular: nl pulses, regular rate and rhythm Gastrointestinal: non-tender, soft Extremities: normal pulses, other (no edema, clubbing or cyanosis ) Neurological: DIGITAL SALES REPRESENTATIVE II-XII intact, nl mental status, nl speech, nl strength Results Result Diagram: 01/14/17 0425 01/14/17 0425 Results 24 hrs Laboratory Tests Test 01/14/17 04:25 01/14/17 05:00 White Blood Count 4.7 L Red Blood Count 3.89 L Hemoglobin 11.8 L Hematocrit 35.5 L Mean Corpuscular Volume 91.3 Mean Corpuscular Hemoglobin 30.3 Mean Corpuscular Hemoglobin Concent 33.2 Red Cell Distribution Width 11.5 Platelet Count 200 Mean Platelet Volume 10.8 H Neutrophils % 51.5 Lymphocytes % 34.5 Monocytes % 8.7 Eosinophils % 4.9 Basophils % 0.4 Nucleated Red Blood Cells % 0.0 Neutrophils # 2.4 Lymphocytes # 1.6 Monocytes # 0.4 Eosinophils # 0.2 Basophils # 0.0 Nucleated Red Blood Cells # 0.0 Sodium Level 141 Potassium Level 4.3 Chloride Level 105 Carbon Dioxide Level 24 Anion Gap 16 Blood Urea Nitrogen 11 Creatinine 0.61 Glucose Level 103 Calcium Level 9.3 Phosphorus Level 5.0 H Magnesium Level 1.8 Medications Medications Current Medications Potassium Chloride/Dextrose/ Sod Cl (D5-1/2ns + KCl 20 Meq) 1,000 ml @ 100 mls/ hr Q10H IV Last administered on 01/14/17 09:17; Admin Dose 100 MLS/HR; Start 01/11/17 at 22:11 Acetaminophen (Tylenol Tab) 650 mg Q6H PRN PO PAIN LEVEL 1-3 OR FEVER Last administered on 01/13/17 16:47; Admin Dose 650 MG; Start 01/11/17 at 22:30 Docusate Sodium (Colace) 100 mg Q12H PRN PO CONSTIPATION; Start 01/11/17 at 22: 30 Zolpidem Tartrate (Ambien) 5 mg QHS PRN PO SLEEP; Start 01/11/17 at 22:30 Famotidine (Pepcid Iv) 20 mg Q12 IV Last administered on 01/14/17 09:00; Admin Dose 20 MG; Start 01/11/17 at 22:30 Enoxaparin Sodium (Lovenox) 40 mg DAILY SC ; Start 01/12/17 at 09:00 Hydromorphone HCl 1 mg 1 mg Q2H PRN IV SEVERE PAIN LEVEL 7-10; Start 01/12/17 at 00:30 Ferric Sodium Gluconate Complex/ Sodium Chloride (Ferrlecit/NS) 110 ml @ 110 mls/hr Q24H IVPB Last administered on 01/13/17 14:48; Admin Dose 110 MLS/HR; Start 01/12/17 at 14:30; Stop 01/19/17 at 15:29 Ondansetron HCl (Zofran Inj) 4 mg Q4H PRN IV NAUSEA AND/OR VOMITING; Start at 14:00 IV Flush (NS 10 ml) 10 ml PRN PRN IV IV PROTOCOL; Start 01/13/17 at 14:30 Procedures Procedures PROCEDURE: XR Chest. CLINICAL INDICATION: Check PICC line position. TECHNIQUE: Single frontal view. COMPARISON: 08/28/2016. FINDINGS: There is a left arm PICC line with the tip in the lower superior vena cava. The lungs are clear. The heart size is normal. There is no pleural effusion. There is no pneumothorax. IMPRESSION: 1. Satisfactory position of left arm PICC line. 2. Otherwise normal chest radiograph. RPTAT: QQ .Paul Jones MD, MD Date Time Electronically viewed and signed by .Paul Jones MD, MD on 01/13/2017 14:15 MARCO ANTONIO STOUT Jan 14, 2017 11:19
[2017-01-14] MEDS: SOD FERRIC GLUC COMPLX 125 MG in SOD CHLORIDE 0.9% 100 ML IVPB SCH (13:53)
[2017-01-14] MEDS: NS + KCL 20 MEQ 1,000 ML IV SCH ×2 (14:56→20:42)
[2017-01-14] MEDS: IBUPROFEN 400 MG TAB PO PRN (17:17)
[2017-01-14] MEDS ORDERED: DEXAMETHASONE IV SCH (17:30)
[2017-01-14] MEDS ORDERED: ONDANSETRON IV SCH (17:30)
[2017-01-14] MEDS ORDERED: RANITIDINE 50 MG in SOD CHLORIDE 0.9% 50 ML IVPB SCH (17:30)
[2017-01-14] MEDS ORDERED: DIPHENHYDRAMINE 50 MG INJ IV SCH (17:30)
[2017-01-14] MEDS ORDERED: SOD CHLORIDE 0.9% IV SCH ×4 (17:30→21:30)
[2017-01-14] MEDS ORDERED: CARBOPLATIN IV SCH (18:00)
[2017-01-14] MEDS ORDERED: PACLITAXEL IV SCH (18:30)
[2017-01-14] MEDS ORDERED: BEVACIZUMAB IV SCH (21:30)
--- NOTE | 2017-01-14 21:54 | CONS ---
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 PATH- Serous high grade carcinoma. HISTOLOGIC GRADE: G3. EXTENT OF INVOLVEMENT OF OTHER TISSUES/ORGANS: Right ovary: Involved. Left ovary: Involved. Right fallopian tube: Involved. Left fallopian tube: Involved. Omentum: Involved. Uterus: Involved, serosa. Peritoneum: Involved. Other organs: Appendix and sigmoid colon are involved. PATHOLOGIC STAGING (pTNM): pT3c pN1a. FIGO STAGE: IIIC. OUTPT CHEMO- ONLY 1 CYCLE WAS GIVEN ON AUG 27, 2016 WITH CARBO/TAXOL THEN PT CHANGE HER PLACE OF LIVING, HER LOST A JOB, SHE MOVED TO [place], HAD A LOT OF SOCIAL PROBLEMS , NEVER ESTABLISHED F-UP WITH ONCOLOGIST AT [place] , HER INSURANCE HAS BEEN CHANGED NOW -WITH DIS PROGRESSION, SEEKING CONTINUATION OF TREATMENT. STARTED CHEMO D/W PT IN DETAILS DIS PROGRESSION WITH New subtle nodularity along the anterior surface of the left hepatic lobe, concerning for possible serosal malignant implants New soft tissue nodularity is also seen in the left upper quadrant, adjacent to the distal transverse colon and splenic flexure, concerning for possible peritoneal carcinomatosis versus omental implants Minimally increased small nonspecific pelvic fluid in the presacral region may be physiologic, most likely malignant 2. Gastrointestinal prophylaxis, PPI. 3. Deep venous thrombosis prophylaxis with Lovenox. 4. JEHOVAH WITNESS CONT IV IRON PROCRIT POST CHEMO Problems: Consultation Date/Type/Reason Admit Date/Time Jan 13, 2017 at 09:22 Initial Consult Date 01/11/17 Type of Consultation: HEMEON Referring Provider: ROSEY GARCIA MD 24 HR Interval Summary Free Text/Dictation ALL NOTED D/W PT AND RN STARTED ON CHEMO POST PICC LONE ON IV IRON Exam/Review of Systems Vital Signs Vitals Vital Signs Date Time Temp Pulse Resp B/P Pulse Ox O2 Delivery O2 Flow Rate FiO2 01/14/17 20:30 98.1 61 20 115/70 96 01/14/17 18:46 Room Air Intake and Output 01/13/17 01/13/17 01/14/17 15:00 23:00 07:00 Intake Total 1250 ml 1700 ml Output Total 1400 ml Balance 1250 ml 300 ml Exam GENERAL: well-developed/well-nourished, in no apparent distress, non-toxic appearing HENT: NC/AT, moist mucous membranes EYES: Conjunctiva normal NECK: Supple, no lymphadenopathy PULM: CTA bilaterally, no rales, rhonchi, or wheezing heard CV: Normal S1S2, RRR, good capillary refill GI: tender to palpation in all quadrants +guarding Normal bowel sounds, no masses or organomegaly felt on exam No gross peritonitis, no bruits Negative Rovsing, negative Monge, negative McBurney's point, Negative CVAT BACK: No masses EXT: No clubbing, cyanosis, or edema NEURO: Alert and Orientated SKIN: Intact, normal turgor Results Result Diagram: 01/14/17 0425 01/14/17 0425 Results 24 hrs Laboratory Tests Test 01/14/17 04:25 01/14/17 05:00 White Blood Count 4.7 L Red Blood Count 3.89 L Hemoglobin 11.8 L Hematocrit 35.5 L Mean Corpuscular Volume 91.3 Mean Corpuscular Hemoglobin 30.3 Mean Corpuscular Hemoglobin Concent 33.2 Red Cell Distribution Width 11.5 Platelet Count 200 Mean Platelet Volume 10.8 H Neutrophils % 51.5 Lymphocytes % 34.5 Monocytes % 8.7 Eosinophils % 4.9 Basophils % 0.4 Nucleated Red Blood Cells % 0.0 Neutrophils # 2.4 Lymphocytes # 1.6 Monocytes # 0.4 Eosinophils # 0.2 Basophils # 0.0 Nucleated Red Blood Cells # 0.0 Sodium Level 141 Potassium Level 4.3 Chloride Level 105 Carbon Dioxide Level 24 Anion Gap 16 Blood Urea Nitrogen 11 Creatinine 0.61 Glucose Level 103 Calcium Level 9.3 Phosphorus Level 5.0 H Magnesium Level 1.8 Medications Medications Current Medications Potassium Chloride/Dextrose/ Sod Cl (D5-1/2ns + KCl 20 Meq) 1,000 ml @ 100 mls/ hr Q10H IV Last administered on 01/14/17t 09:17; Admin Dose 100 MLS/HR; Start 01/11/17 at 22:11; Status Future Hold Acetaminophen (Tylenol Tab) 650 mg Q6H PRN PO PAIN LEVEL 1-3 OR FEVER Last administered on 01/13/17 16:47; Admin Dose 650 MG; Start 01/11/17 at 22:30 Docusate Sodium (Colace) 100 mg Q12H PRN PO CONSTIPATION; Start 01/11/17 at 22: 30 Zolpidem Tartrate (Ambien) 5 mg QHS PRN PO SLEEP; Start 01/11/17 at 22:30 Famotidine (Pepcid Iv) 20 mg Q12 IV Last administered on 01/14/17 20:37; Admin Dose 20 MG; Start 01/11/17 at 22:30 Enoxaparin Sodium (Lovenox) 40 mg DAILY SC ; Start 01/12/17 at 09:00 Hydromorphone HCl 1 mg 1 mg Q2H PRN IV SEVERE PAIN LEVEL 7-10 Last administered on 01/14/17 20:41; Admin Dose 1 MG; Start 01/12/17 at 00:30 Ferric Sodium Gluconate Complex/ Sodium Chloride (Ferrlecit/NS) 110 ml @ 110 mls/hr Q24H IVPB Last administered on 01/14/17 13:53; Admin Dose 110 MLS/HR; Start 01/12/17 at 14:30; Stop 01/19/17 at 15:29 Ondansetron HCl (Zofran Inj) 4 mg Q4H PRN IV NAUSEA AND/OR VOMITING; Start at 14:00 IV Flush 10 ml 10 ml PRN PRN IV IV PROTOCOL; Start 01/13/17 at 14:30 Potassium Chloride/Sodium Chloride (NS-KCl 20 Meq) 1,000 ml @ 150 mls/hr Q6H40M IV Last administered on 01/14/17 14:56; Admin Dose 150 MLS/HR; Start at 14:02 Ibuprofen 400 mg 400 mg Q8H PRN PO PAIN OR TEMP ABOVE 38C Last administered on 01/14/17 17:17; Admin Dose 400 MG; Start 01/14/17 at 15:00 Bevacizumab/ Sodium Chloride (Avastin/NS) 116 ml @ 66.66 mls/ hr ONCE IV ; Start 01/14/17 at 21:30; Stop 01/14/17 at 23:15 TONE WASHINGTON MD Jan 14, 2017 21:54
[2017-01-15] VITALS (9 sets, daily range): BP systolic 103–118; BP diastolic 52–73; PULSE 55–64; RESP 16–19
[2017-01-15] MEDS: NS + KCL 20 MEQ 1,000 ML IV SCH ×2 (03:22→06:47)
[2017-01-15] MEDS: IBUPROFEN 400 MG TAB PO PRN (03:46)
[2017-01-15 05:16] LABS: ADD SCAN DIFF NO
[2017-01-15 05:27] LABS: ABNORMAL IP MESSAGE 1; HEMATOCRIT 33.3 % (37.0-47.0); HEMOGLOBIN 11.3 g/dl (12.0-16.0); MEAN CORPUSCULAR HGB CONC 33.9 g/dl (32.0-37.0); MEAN CORPUSCULAR VOLUME 91.5 fl (82.0-101.0); MEAN PLATELET VOLUME 11.1 fl (7.4-10.4); PLATELET COUNT 196 10^3/UL (140-415); RED BLOOD COUNT 3.64 10^6/ul (4.20-5.40); RED CELL DISTRIBUTION WIDTH 11.1 % (11.5-14.5); WHITE BLOOD COUNT 3.3 10^3/ul (4.8-10.8)
[2017-01-15 05:30] LABS: POTASSIUM 4.3 mmol/L (3.5-5.1)
[2017-01-15 05:32] LABS: CREATININE 0.58 mg/dl (0.44-1.00)
[2017-01-15 05:33] LABS: CALCIUM 8.7 mg/dl (8.4-10.2)
[2017-01-15 05:36] LABS: PHOSPHORUS 3.8 mg/dl (2.5-4.9)
[2017-01-15 05:37] LABS: MAGNESIUM 1.7 mg/dl (1.7-2.5)
[2017-01-15 06:54] LABS: LYMPHOCYTES % 16.8 % (15.0-51.0); NEUTROPHILS % 81.1 % (39.0-77.0)
[2017-01-15 06:55] LABS: BASOPHILS % 0.3 % (0.0-2.0); LYMPHOCYTES # 0.6 10^3/ul (0.8-2.9); MONOCYTE # 0.1 10^3/ul (0.3-0.9); MONOCYTES % 1.5 % (0.0-11.0); NEUTROPHIL # 2.7 10^3/ul (1.6-7.5); TOTAL CELLS COUNTED % 100
[2017-01-15] MEDS: FAMOTIDINE 20 MG INJ IV SCH (08:26)
[2017-01-15] MEDS: ENOXAPARIN 40 MG/0.4 ML SYG SC SCH (08:27)
--- NOTE | 2017-01-15 11:22 | PN ---
Date/Time of Note Date/Time of Note DATE: 01/15/17 TIME: 11:14 Assessment/Plan VTE Prophylaxis VTE Prophylaxis Intervention: LMWH Lines/Catheters IV Catheter Type (from Nrsg): PICC Line Central line still needed: Yes (to be discontinued) Assessment/Plan Assessment/Plan 36-year-old female with: 1. Metastatic ovarian cancer with still remaining carcinomatosis. Apparently had 1 dose of chemo in August then was lost to followup and currently back with Dr. Enriquez. New lesions on CT and elevated CA-125 Patient s/p chemo yesterday D/c PICC line and LUE US today Discussed with Dr. Enriquez, to be discharged home today for further outpatient treatment. 2. Pain post PICC line placement, no edema or swelling at PICC line site and infusing well. PICC line in satisfactory position on XR post placement. Doppler LUE and d/c PICC line now. Prophylaxis: Pepcid for gastrointestinal prophylaxis. Lovenox for deep venous thrombosis prophylaxis. DISPOSITION: d/c PICC line and d/c home today and to continue chemotherapy outpatient. Subjective 24 Hr Interval Summary Free Text/Dictation Patient doing well but complaining of LUE pain and limited ROM due to pain. I have talked to radiology, patient had an uneventful placement, patient has a patent and well functioning line. Pulses are intact on exam Requesting to remove PICC line and Doppler LUE prior to D/c home, we will do so PT LUE Exam/Review of Systems Vital Signs Vitals Vital Signs Date Time Temp Pulse Resp B/P Pulse Ox O2 Delivery O2 Flow Rate FiO2 01/15/17 07:40 98.2 55 19 112/73 98 01/15/17 03:00 Room Air Intake and Output 01/14/17 01/14/17 01/15/17 15:00 23:00 07:00 Intake Total 2743 ml 2316 ml Output Total 1200 ml 1100 ml Balance 1543 ml 1216 ml Exam Constitutional: alert, oriented, well developed Respiratory: clear to auscultation, normal air movement Cardiovascular: nl pulses, regular rate and rhythm Gastrointestinal: non-tender, soft Musculoskeletal: nl extremities to inspection Extremities: normal pulses, other (LUE with normal pulses and excellent perfusion, PICC line site wnl with no edema, erythema) Neurological: WIND ENERGY SYSTEMS INSTALLER II-XII intact, nl mental status, nl speech, nl strength Results Result Diagram: 01/15/17 0420 01/15/17 0430 Results 24 hrs Laboratory Tests Test 01/15/17 04:20 01/15/17 04:30 White Blood Count 3.3 #L Red Blood Count 3.64 L Hemoglobin 11.3 L Hematocrit 33.3 L Mean Corpuscular Volume 91.5 Mean Corpuscular Hemoglobin 31.0 Mean Corpuscular Hemoglobin Concent 33.9 Red Cell Distribution Width 11.1 L Platelet Count 196 Mean Platelet Volume 11.1 H Neutrophils % 81.1 H Band Neutrophils % 0.0 Lymphocytes % 16.8 Monocytes % 1.5 Eosinophils % 0.0 Basophils % 0.3 Nucleated Red Blood Cells % 0.0 Neutrophils # 2.7 Lymphocytes # 0.6 L Monocytes # 0.1 L Eosinophils # 0.0 Basophils # 0.0 Nucleated Red Blood Cells # 0.0 Sodium Level 137 Potassium Level 4.3 Chloride Level 106 Carbon Dioxide Level 22 Anion Gap 13 Blood Urea Nitrogen 10 Creatinine 0.58 Glucose Level 128 Calcium Level 8.7 Phosphorus Level 3.8 Magnesium Level 1.7 Medications Medications Current Medications Potassium Chloride/Dextrose/ Sod Cl (D5-1/2ns + KCl 20 Meq) 1,000 ml @ 100 mls/ hr Q10H IV Last administered on 01/14/17 09:17; Admin Dose 100 MLS/HR; Start 01/11/17 at 22:11; Status Future Hold Acetaminophen (Tylenol Tab) 650 mg Q6H PRN PO PAIN LEVEL 1-3 OR FEVER Last administered on 01/13/17 16:47; Admin Dose 650 MG; Start 01/11/17 at 22:30 Docusate Sodium (Colace) 100 mg Q12H PRN PO CONSTIPATION; Start 01/11/17 at 22: 30 Zolpidem Tartrate (Ambien) 5 mg QHS PRN PO SLEEP; Start 01/11/17 at 22:30 Famotidine (Pepcid Iv) 20 mg Q12 IV Last administered on 01/15/17 08:26; Admin Dose 20 MG; Start 01/11/17 at 22:30 Enoxaparin Sodium (Lovenox) 40 mg DAILY SC ; Start 01/12/17 at 09:00 Hydromorphone HCl 1 mg 1 mg Q2H PRN IV SEVERE PAIN LEVEL 7-10 Last administered on 01/14/17 20:41; Admin Dose 1 MG; Start 01/12/17 at 00:30 Ferric Sodium Gluconate Complex/ Sodium Chloride (Ferrlecit/NS) 110 ml @ 110 mls/hr Q24H IVPB Last administered on 01/14/17 13:53; Admin Dose 110 MLS/HR; Start 01/12/17 at 14:30; Stop 01/19/17 at 15:29 Ondansetron HCl (Zofran Inj) 4 mg Q4H PRN IV NAUSEA AND/OR VOMITING; Start at 14:00 IV Flush 10 ml 10 ml PRN PRN IV IV PROTOCOL; Start 01/13/17 at 14:30 Potassium Chloride/Sodium Chloride (NS-KCl 20 Meq) 1,000 ml @ 150 mls/hr Q6H40M IV Last administered on 01/15/17 06:47; Admin Dose 150 MLS/HR; Start at 14:02 Ibuprofen (Motrin) 400 mg Q8H PRN PO PAIN OR TEMP ABOVE 38C Last administered on 01/15/17 03:46; Admin Dose 400 MG; Start 01/14/17 at 15:00 MARCO ANTONIO STOUT Jan 15, 2017 11:22
--- NOTE | 2017-01-15 11:33 | PDOCDIS ---
Discharge Instructions CONDITION Patient Condition: Stable HOME CARE INSTRUCTIONS: Special Diet: REGULAR ACTIVITY: Activity Restrictions: No Restrictions FOLLOW UP/APPOINTMENTS Appointments Follow up with Dr Enriquez in 1 week Follow up with PCP within 1 week MARCO ANTONIO STOUT Jan 15, 2017 11:33
[2017-01-15] MEDS ORDERED: ONDA8TAB9 PO (11:35)
[2017-01-15] MEDS ORDERED: HYDR-906 PO (11:35)
[2017-01-15] MEDS ORDERED: EPOETIN 10000 UNITS/ML VIAL (ONCOLOGY) SC ONE (13:00)
--- NOTE | 2017-01-15 13:02 | RADRPT ---
PROCEDURE: Left upper extremity venous ultrasound CLINICAL INDICATION: Left arm pain and swelling. Deep venous thrombosis. TECHNIQUE: Purdy scale, color doppler, spectral doppler ultrasound imaging of the venous system of the left upper extremity. Augmentation maneuvers were utilized. COMPARISON: No prior studies are available for comparison. FINDINGS: LEFT: Internal jugular vein: Patent. Subclavian vein: Patent. Axillary vein: Patent. Brachial vein: Patent. Basilic vein: Patent. Cephalic vein: Patent. PICC line is noted. Radial vein: Patent. Ulnar vein: Patent. IMPRESSION: No evidence of a deep vein thrombosis involving the left upper extremity. Left cephalic vein PICC line is noted. RPTAT: AADD .Mele Robins MD, MD Date Time Electronically viewed and signed by .Mele Robins MD, MD on 01/15/2017 13:02 .B/
[2017-01-15] MEDS: SOD FERRIC GLUC COMPLX 125 MG in SOD CHLORIDE 0.9% 100 ML IVPB SCH (14:17)
[2017-01-15] MEDS: ACETAMINOPHEN 325 MG TAB PO PRN (15:49)
--- NOTE | 2017-01-15 18:31 | DS ---
DATE OF ADMISSION: 01/13/2017 DATE OF DISCHARGE: 01/15/2017 PRIMARY CARE PHYSICIAN: Unknown. PRIMARY ONCOLOGIST: Obdulia Enriquez MD CONSULTANTS DURING THIS ADMISSION: Dr. Enriquez from oncology. ADMITTING PHYSICIAN: Cornell Mullen MD DISCHARGING PHYSICIAN: Cornell Mullen MD CHIEF COMPLAINT ON ADMISSION: Abdominal pain. BRIEF HISTORY OF PRESENT ILLNESS: This is a 36-year-old female with history of metastatic ovarian c ancer, status post debulking for peritoneal carcinomatosis by Dr. Noonan in 07/2016. The patient had 1 chemotherapy session and got lost to followup after that. Represented recently this month wit h complaints of abdominal pain. She had a CAT scan that showed some peritoneal seeding and metastat ic carcinoma. She represented in the ER with abdominal pain and according to her oncologist needs i nitiation of chemotherapy. HOSPITAL COURSE: The patient was admitted to a medical/surgical bed. Her CA-125 is back up to 204 along with the findings on CT confirming active disease. Therefore, the patient had a PICC line avelino kenn, subsequent chemotherapy was given. The patient has been complaining of the PICC line being marya nful along its course. She has been difficult about it. She is complaining unable to move her arm; therefore, ultrasound was done, it is negative. I have talked to radiology, the patient had a fair ly uneventful placement. The patient herself is complaining that she may have nerve injury. I have explained to her that it is unlikely. Her pain may be related to just the line going in there. If she did have a nerve injury, it is resolving. The PICC line is therefore removed prior to discharg e per patient's insistence. I have talked to her oncologist who claims that she does not need it fo r outpatient chemotherapy either. Again, Doppler of the left upper extremity PICC line site shows g ood positioning, no signs of clot. The PICC itself is working well, but the patient is requesting f or it to be removed due to discomfort. The PICC line has been removed. The patient has full range of motion of her left upper extremity with not much of pain according to the nurse. At this point, she will be discharged home. I have recommended for her to do some exercises for her upper extremit y so that it does not get stiff. She can follow up with her oncologist as an outpatient. She has b een given [place] as needed for pain. She also has requested Zofran as needed for nausea, which has b een given to her. She will be following up with Dr. Enriquez on 01/21/2016 and further chemotherap y will be arranged through Dr. Enriquez at that time. DISPOSITION: Discharge home. DISCHARGE CONDITION: Stable. DISCHARGE DIET: Regular diet. DISCHARGE ACTIVITY: Resume home activity. FOLLOWUP: The patient is to follow up with primary care physician within [address] week[address] Follow up with Dr Alfredo Enriquez, oncology, on Thursday01/20/2017. DISCHARGE DIAGNOSES: 1. Metastatic ovarian cancer with remaining carcinomatosis. 2. Status post PICC line placement and now removal due to left upper extremity discomfort. DISCHARGE MEDICATIONS: 1. Zofran 8 mg p.o. q.8 hours p.r.n. nausea or vomiting. 2. [place] 5/325 one tab p.o. q.6 hours p.r.n. pain. Dictated By: CORNELL RODRIGUEZ/TRAV Conf#: [id number] DID#: [id number]
--- NOTE | 2017-01-15 20:54 | CONS ---
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 PATH- Serous high grade carcinoma. HISTOLOGIC GRADE: G3. EXTENT OF INVOLVEMENT OF OTHER TISSUES/ORGANS: Right ovary: Involved. Left ovary: Involved. Right fallopian tube: Involved. Left fallopian tube: Involved. Omentum: Involved. Uterus: Involved, serosa. Peritoneum: Involved. Other organs: Appendix and sigmoid colon are involved. PATHOLOGIC STAGING (pTNM): pT3c pN1a. FIGO STAGE: IIIC. OUTPT CHEMO- ONLY 1 CYCLE WAS GIVEN ON AUG 27, 2016 WITH CARBO/TAXOL THEN PT CHANGE HER PLACE OF LIVING, HER LOST A JOB, SHE MOVED TO [place], HAD A LOT OF SOCIAL PROBLEMS , NEVER ESTABLISHED F-UP WITH ONCOLOGIST AT [place] , HER INSURANCE HAS BEEN CHANGED NOW -WITH DIS PROGRESSION, SEEKING CONTINUATION OF TREATMENT. NEED TO START CHEMO KATIA D/W PT IN DETAILS POST CHEMO OK TO DC PICC LINE DIS PROGRESSION WITH New subtle nodularity along the anterior surface of the left hepatic lobe, concerning for possible serosal malignant implants New soft tissue nodularity is also seen in the left upper quadrant, adjacent to the distal transverse colon and splenic flexure, concerning for possible peritoneal carcinomatosis versus omental implants Minimally increased small nonspecific pelvic fluid in the presacral region may be physiologic, most likely malignant 2. Gastrointestinal prophylaxis, PPI. 3. Deep venous thrombosis prophylaxis with Lovenox. 4. JEHOVAH WITNESS IV IRON PROCRIT POST CHEMO OK TO DC F-UP OUTPT Problems: Consultation Date/Type/Reason Admit Date/Time Jan 13, 2017 at 09:22 Initial Consult Date 01/11/17 Type of Consultation: [facility] Referring Provider: ROSEY GARCIA MD 24 HR Interval Summary Free Text/Dictation ALL NOTED D/W DR STOUT AND SW GOING HOME TODAY Exam/Review of Systems Vital Signs Vitals Vital Signs Date Time Temp Pulse Resp B/P Pulse Ox O2 Delivery O2 Flow Rate FiO2 01/15/17 07:40 98.2 55 19 112/73 98 01/15/17 03:00 Room Air Intake and Output 01/14/17 01/14/17 01/15/17 15:00 23:00 07:00 Intake Total 2743 ml 2316 ml Output Total 1200 ml 1100 ml Balance 1543 ml 1216 ml Exam GENERAL: well-developed/well-nourished, in no apparent distress, non-toxic appearing HENT: NC/AT, moist mucous membranes EYES: Conjunctiva normal NECK: Supple, no lymphadenopathy PULM: CTA bilaterally, no rales, rhonchi, or wheezing heard CV: Normal S1S2, RRR, good capillary refill GI: tender to palpation in all quadrants +guarding Normal bowel sounds, no masses or organomegaly felt on exam No gross peritonitis, no bruits Negative Rovsing, negative Monge, negative McBurney's point, Negative CVAT BACK: No masses EXT: No clubbing, cyanosis, or edema NEURO: Alert and Orientated SKIN: Intact, normal turgor Results Result Diagram: 01/15/17 0420 01/15/17 0430 Results 24 hrs Laboratory Tests Test 01/15/17 04:20 01/15/17 04:30 White Blood Count 3.3 #L Red Blood Count 3.64 L Hemoglobin 11.3 L Hematocrit 33.3 L Mean Corpuscular Volume 91.5 Mean Corpuscular Hemoglobin 31.0 Mean Corpuscular Hemoglobin Concent 33.9 Red Cell Distribution Width 11.1 L Platelet Count 196 Mean Platelet Volume 11.1 H Neutrophils % 81.1 H Band Neutrophils % 0.0 Lymphocytes % 16.8 Monocytes % 1.5 Eosinophils % 0.0 Basophils % 0.3 Nucleated Red Blood Cells % 0.0 Neutrophils # 2.7 Lymphocytes # 0.6 L Monocytes # 0.1 L Eosinophils # 0.0 Basophils # 0.0 Nucleated Red Blood Cells # 0.0 Sodium Level 137 Potassium Level 4.3 Chloride Level 106 Carbon Dioxide Level 22 Anion Gap 13 Blood Urea Nitrogen 10 Creatinine 0.58 Glucose Level 128 Calcium Level 8.7 Phosphorus Level 3.8 Magnesium Level 1.7 TONE WASHINGTON MD Jan 15, 2017 20:54
[2017-01-15] MEDS ORDERED: FAMOTIDINE 20 MG TAB PO SCH (21:00)
== END 2017-01-15 17:40 | disposition home or self-care (01) | DRG 948 ==
LOC: FTE 18:47 → MS1 21:52 → OBSVTOIN 01-13 09:22
PROVIDERS: ADMIT Internal Medicine; ATTEND Internal Medicine
PROC: 02HV33Z Insertion of Infusion Device into Superior Vena Cava, Percutaneous Approach (ICD-10-PCS; 2017-01-13)
PROC: 3E04305 Introduction of Other Antineoplastic into Central Vein, Percutaneous Approach (ICD-10-PCS; principal; 2017-01-14)
DX: G89.3 Neoplasm related pain (acute) (chronic) (principal); C78.6 Secondary malignant neoplasm of retroperitoneum and peritoneum; Z85.43 Personal history of malignant neoplasm of ovary; R21 Rash and other nonspecific skin eruption
CPT/HCPCS: 36415; 36569; 71010; 76937; 80048; 80053; 81001; 81003; 83690; 83735; 84100; 85025; 86304; 93971; 96374; 96375; J0885; J9267; G0378; J1100; J1170; J1200; J1650; J1885; J2405; J2780; J2916; J3480; J7030; J7040; J9035; J9045

== ENCOUNTER 2017-02-19 16:09 | Emergency (ER) | payer OTHER ==
[~2017-02-19] VITALS: Ht 157.5 cm; Wt 53.5 kg
[~2017-02-19 16:09] MED LIST changes: -ONDA4TAB8 PO; +ONDA8TAB9 PO
[2017-02-19 16:15] VITALS: Ht 157.5 cm; Wt 53.5 kg
[2017-02-19] MEDS ORDERED: HYDROmorphONE 1 MG/ML SYG IV STA (19:16)
[2017-02-19] MEDS ORDERED: SOD CHLORIDE 0.9% 1,000 ML IV STA (19:16)
[2017-02-19] MEDS ORDERED: ONDANSETRON 4 MG INJ IV STA (19:16)
[2017-02-19 19:43] LABS: ADD SCAN DIFF NO
[2017-02-19 19:47] LABS: ADD UMIC YES; BASOPHILS % 0.2 % (0.0-2.0); EOSINOPHILS # 0.2 10^3/ul (0.0-0.5); EOSINOPHILS % 4.4 % (0.0-7.0); HEMATOCRIT 38.2 % (37.0-47.0); HEMOGLOBIN 12.7 g/dl (12.0-16.0); LYMPHOCYTES # 1.5 10^3/ul (0.8-2.9); MEAN CORPUSCULAR HEMOGLOBIN 30.8 pg (29.0-33.0); MEAN CORPUSCULAR HGB CONC 33.2 g/dl (32.0-37.0); MEAN CORPUSCULAR VOLUME 92.5 fl (82.0-101.0); MEAN PLATELET VOLUME 9.9 fl (7.4-10.4); MONOCYTE # 0.4 10^3/ul (0.3-0.9); MONOCYTES % 8.2 % (0.0-11.0); NEUTROPHIL # 2.8 10^3/ul (1.6-7.5); PLATELET COUNT 198 10^3/UL (140-415); RED BLOOD COUNT 4.13 10^6/ul (4.20-5.40); RED CELL DISTRIBUTION WIDTH 12.1 % (11.5-14.5); URINE BILIRUBIN (Dip) NEGATIVE (NEGATIVE); URINE BLOOD (Dip) TRACE (NEGATIVE); URINE COLOR LT. YELLOW (YELLOW); URINE GLUCOSE (Dip) NEGATIVE (NEGATIVE); URINE KETONES (Dip) NEGATIVE (NEGATIVE); URINE LEUKOCYTE ESTERASE (Dip) TRACE (NEGATIVE); URINE NITRITE (Dip) NEGATIVE (NEGATIVE); URINE TOTAL PROTEIN (Dip) NEGATIVE (NEGATIVE); URINE UROBILINOGEN (Dip) 0.2 E.U./dL (0.1-1.0)
[2017-02-19 19:57] LABS: SQUAMOUS EPITHELIAL CELL,UR RARE; URINE RBCS 0-2 /HPF (0)
[2017-02-19] MEDS ORDERED: IOHEXOL 300MG/ML 150 ML BTL ONE (20:00)
[2017-02-19] MEDS ORDERED: SOD CHLORIDE 0.9% 100 ML ONE (20:00)
[2017-02-19 20:07] LABS: ALBUMIN 4.5 g/dl (3.3-4.9)
[2017-02-19 20:08] LABS: POTASSIUM 3.9 mmol/L (3.5-5.1)
[2017-02-19 20:10] LABS: ALBUMIN/GLOBULIN RATIO 1.28; BILIRUBIN,INDIRECT 0.4 mg/dl (0-1.1); BILIRUBIN,TOTAL 0.4 mg/dl (0.2-1.3); CREATININE 0.62 mg/dl (0.44-1.00)
[2017-02-19 20:11] LABS: CALCIUM 9.6 mg/dl (8.4-10.2)
[2017-02-19 20:34] LABS: IRON 47 ug/dl (35-150)
[2017-02-19 20:41] LABS: CANCER ANTIGEN 125 29.6 U/ml (0.0-35.0)
[2017-02-19 20:44] LABS: TOTAL IRON BINDING CAPACITY 221 ug/dl (241-421)
--- NOTE | 2017-02-19 21:44 | RADRPT ---
PROCEDURE: CT Abdomen and Pelvis with contrast. CLINICAL INDICATION: Abdominal pain, history of total abdominal hysterectomy and chemotherapy. TECHNIQUE: A CT scan of the abdomen and pelvis was performed with intravenous contrast. The patie nt was scanned following the uncomplicated intravenous administration of 80 cc of Omnipaque-300. Co terell and sagittal reformatted images were obtained from the axial source images. Images were review ed on a high-resolution PACS workstation. CTDIvol: 6.68 mGy. DLP: 306.52 mGy-cm. One or more of the following dose reduction techniques were used: - Automated exposure control. - Adjustment of the mA and/or kV according to patient size. - Use of iterative reconstruction technique. COMPARISON: 01/06/2017 FINDINGS: The lung bases are clear. Subtle nodularity along the anterior aspect of the liver is not significantly changed. The gallbladd er is normal in appearance. The common bile duct is not dilated. An 8 mm low-attenuation focus along the posterolateral aspect of the spleen is unchanged, and might represent a small cyst or a parench ymal defect. No pancreatic lesion is identified and there is no pancreatic ductal dilatation. The ad renal glands are unremarkable. The kidneys are normal in size. There is no perinephric fat stranding. No hydronephrosis is seen. Again seen is evidence of partial sigmoid colon resection with colocolic anastomosis. The small and large bowel are normal in caliber. There is no bowel wall thickening. The appendix is not identifie d. The urinary bladder is unremarkable. The patient is status post hysterectomy, as per provided histor y. There is nonspecific soft tissue density superior to the expected region of the vaginal cuff. There is decreased omental nodularity in the left upper quadrant and anterior left abdominopelvic re gion. There is no ascites. No pneumoperitoneum is seen. There are no arterial calcifications. No suspicious osseous lesion is idenitified. IMPRESSION: 1. Status post hysterectomy, as per provided history. There is nonspecific soft tissue density supe rior to the expected region of the vaginal cuff, possibly neoplasm recurrence. Further evaluation w ith non emergent contrast enhanced pelvis MRI is recommended. 2. Subtle nodularity along the anterior aspect of the liver, not significantly changed. This could represent metastatic serosal implants. 3. Decreased omental nodularity in the left upper quadrant and anterior left abdominopelvic region. 3. Status post partial sigmoid colon resection with colocolic anastomosis. 4. The appendix is not identified. If there is concern for appendicitis, close clinical follow-up is recommended. RPTAT: HTAR .Parth Carcamo MD, Date Time Electronically viewed and signed by .Parth Carcamo MD, on 02/19/2017 21:44 .R/
[2017-02-19] MEDS ORDERED: SOD CHLORIDE 0.9% 1,000 ML IV ONE (22:00)
[2017-02-19] MEDS ORDERED: ACET-141 PO (22:02)
[2017-02-19] MEDS ORDERED: CHOL100062 PO (22:02)
[2017-02-19] MEDS ORDERED: IRON1TAB78 PO (22:05)
[2017-02-19] MEDS ORDERED: IRON1TAB77 PO (22:05)
[2017-02-19] MEDS ORDERED: HYDR-906 PO (22:17)
[2017-02-19] MEDS ORDERED: DICY10CA60 PO (22:17)
--- NOTE | 2017-02-19 22:23 | ERD ---
ER Documentation Chief Complaint Date/Time DATE: 02/19/17 TIME: 22:18 Chief Complaint ABDOMINAL PAIN WITH NAUSEA SINCE JULY AFTER TUMOR REMOVAL HPI This is a 36-year-old female with a history of ovarian cancer status post hysterectomy and partial colectomy undergoing chemotherapy currently she is complaining of a few days of periumbilical burning she says. Nothing seems to make the pain worse or better the pain is off and on the pain is mild in nature she is able to urinate without any difficulty no nausea vomiting diarrhea no fever no back pain. ROS All systems reviewed and are negative except as per history of present illness. Medications Home Meds Active Scripts Dicyclomine Hcl* (Bentyl*) 10 Mg Capsule, 20 MG PO QID for abd pain, #14 CAP Prov:LEYOVANIOS,APOSTOLOS A. DO 02/19/17 Hydrocodone/Acetaminophen ([place] 5-325 Tablet) 1 Each Tablet, 1 TAB PO Q6H Y for PAIN, #20 TAB Prov:LYDIA SANTACRUZSTJAYLON A. DO 02/19/17 Ondansetron Hcl* (Zofran*) 8 Mg Tablet, 8 MG PO Q8 Y for NAUSEA AND OR VOMITING , #30 TAB 3 Refills Prov:MARCO ANTONIO STOUT 01/15/17 Hydrocodone/Acetaminophen ([place] 5-325 Tablet) 1 Each Tablet, 1 TAB PO Q6H Y for PAIN, #30 TAB 0 Refills Prov:MARCO ANTONIO STOUT 01/15/17 Reported Medications Iron,Carbonyl/Ascorbic Acid (IRON 100-VITAMIN C TABLET) 1 Each Tablet, 1 EACH PO , TAB 02/19/17 Iron,Carbonyl/Vit C/Vit B12/Fa (IRON 100 PLUS TABLET) 1 Each Tablet, 1 EACH PO, TAB 02/19/17 Acetaminophen* (Acetaminophen*) 500 MG Extra Strength Tablet, 500 MG PO Q4H Y for PAIN, TAB 02/19/17 Cholecalciferol* (Vitamin D3*) 1,000 Unit Tablet, 1000 UNIT PO DAILY, TAB 02/19/17 Allergies Allergies: Coded Allergies: No Known Allergy (Verified , 02/19/17) PMhx/Soc History of Surgery: Yes (TAHBSO Jul 2016) Anesthesia Reaction: No Hx Neurological Disorder: No Hx Respiratory Disorders: No Hx Cardiac Disorders: No Hx Psychiatric Problems: No Hx Miscellaneous Medical Probl: Yes (Ovarian CA w/ mets (stage 4)) Hx Alcohol Use: No Hx Substance Use: No Hx Tobacco Use: No Smoking Status: Never smoker FmHx Family History: No coronary disease Physical Exam Vitals Vital Signs Date Time Temp Pulse Resp B/P Pulse Ox O2 Delivery O2 Flow Rate FiO2 02/19/17 16:15 98.1 70 20 115/76 100 Physical Exam Const: Well-developed, well-nourished Head: Atraumatic, normocephalic Eyes: Normal Conjunctiva, PERRLA, EOMI, normal sclera, no nystagmus ENT: Normal External Ears, Nose and Mouth, moist mucus membranes. Neck: Full range of motion. No meningismus, no lymphadenopathy. Resp: Clear to auscultation bilaterally, no wheezing, rhonchi, rales Cardio: Regular rate and rhythm, no murmurs, S1 S2 present Abd: Soft, very mild pain in the mid abdomen, non distended. Normal bowel sounds, no guarding or rebound, no pulsitile abdominal masses or bruits Skin: No petechiae or rashes, no ecchymosis , no maculopapular rash Back: No midline or flank tenderness Ext: No cyanosis, or edema, FROM x 4, normal inspection, neurovascularly intact x 4 Neur: Awake and alert, STR 5/5 x 4, sensation intact x 4, no focal findings, cerebellum intact Psych: Normal Mood and Affect Result Diagram: 02/19/17192902/19/171929 Results 24 hrs Laboratory Tests Test 02/19/17 19:30 White Blood Count 5.010^3/ul Red Blood Count 4.1310^6/ul Hemoglobin 12.7g/dl Hematocrit 38.2% Mean Corpuscular Volume 92.5fl Mean Corpuscular Hemoglobin 30.8pg Mean Corpuscular Hemoglobin Concent 33.2g/dl Red Cell Distribution Width 12.1% Platelet Count 49578^3/UL Mean Platelet Volume 9.9fl Neutrophils % 57.0% Lymphocytes % 30.0% Monocytes % 8.2% Eosinophils % 4.4% Basophils % 0.2% Nucleated Red Blood Cells % 0.0/100WBC Neutrophils # 2.810^3/ul Lymphocytes # 1.510^3/ul Monocytes # 0.410^3/ul Eosinophils # 0.210^3/ul Basophils # 0.010^3/ul Nucleated Red Blood Cells # 0.010^3/ul Urine Color LT. YELLOW Urine Clarity CLEAR Urine pH 6.0 Urine Specific [place] 1.010 Urine Ketones NEGATIVE Urine Nitrite NEGATIVE Urine Bilirubin NEGATIVE Urine Urobilinogen 0.2 E.U./dL Urine Leukocyte Esterase TRACE Urine Microscopic RBC 0-2/HPF Urine Microscopic WBC 0-2/HPF Urine Squamous Epithelial Cells RARE Urine Hemoglobin TRACE Urine Glucose NEGATIVE% Urine Total Protein NEGATIVE Sodium Level 140mmol/L Potassium Level 3.9mmol/L Chloride Level 100mmol/L Carbon Dioxide Level 27mmol/L Anion Gap 17 Blood Urea Nitrogen 15mg/dl Creatinine 0.62mg/dl Glucose Level 91mg/dl Calcium Level 9.6mg/dl Iron Level 47ug/dl Total Iron Binding Capacity 221ug/dl Percent Iron Saturation 21% SAT Total Bilirubin 0.4mg/dl Direct Bilirubin 0.00mg/dl Indirect Bilirubin 0.4mg/dl Aspartate Amino Transf (AST/SGOT) 44IU/L Alanine Aminotransferase (ALT/SGPT) 84IU/L Alkaline Phosphatase 100IU/L Total Protein 8.0g/dl Albumin 4.5g/dl Globulin 3.50g/dl Albumin/Globulin Ratio 1.28 Lipase 109U/L CA 125 Antigen 29.6U/ml Current Medications Medications (Trade) Dose Ordered Sig/Sharon Route PRN Reason Start Time Stop Time Status Last Admin Dose Admin Sodium Chloride (NS) 1,000 ml @ 1,000 mls/hr Q1H STAT IV 02/19/17 19:16 02/19/17 20:15 DC 02/19/17 19:38 Hydromorphone HCl (Dilaudid) 1 mg ONCE STAT IV 02/19/17 19:16 02/19/17 19:19 DC 02/19/17 19:42 Ondansetron HCl (Zofran Inj) 4 mg ONCE STAT IV 02/19/17 19:16 02/19/17 19:19 DC 02/19/17 19:38 IV Flush 10 ml 10 ml STK-MED ONCE .ROUTE 02/19/17 20:00 02/19/17 20:01 DC 02/19/17 21:00 Sodium Chloride (NS) 100 ml @ ud STK-MED ONCE .ROUTE 02/19/17 20:00 02/19/17 20:01 DC 02/19/17 21:00 Iohexol 150 ml 150 ml TV189.comK-MED ONCE .ROUTE 02/19/17 20:00 02/19/17 20:01 DC 02/19/17 21:00 Sodium Chloride (NS) 1,000 ml @ 1,000 mls/hr Q1H ONCE IV 02/19/17 22:00 02/19/17 22:59 02/19/17 21:56 Procedures/MDM PROCEDURE: CT Abdomen and Pelvis with contrast. CLINICAL INDICATION: Abdominal pain, history of total abdominal hysterectomy and chemotherapy. TECHNIQUE: A CT scan of the abdomen and pelvis was performed with intravenous contrast. The patient was scanned following the uncomplicated intravenous administration of 80 cc of Omnipaque-300. Coronal and sagittal reformatted images were obtained from the axial source images. Images were reviewed on a high-resolution PACS workstation. CTDIvol: 6.68 mGy. DLP: 306.52 mGy-cm. One or more of the following dose reduction techniques were used: - Automated exposure control. - Adjustment of the mA and/or kV according to patient size. - Use of iterative reconstruction technique. COMPARISON: 01/06/2017 FINDINGS: The lung bases are clear. Subtle nodularity along the anterior aspect of the liver is not significantly changed. The gallbladder is normal in appearance. The common bile duct is not dilated. An 8 mm low-attenuation focus along the posterolateral aspect of the spleen is unchanged, and might represent a small cyst or a parenchymal defect. No pancreatic lesion is identified and there is no pancreatic ductal dilatation. The adrenal glands are unremarkable. The kidneys are normal in size. There is no perinephric fat stranding. No hydronephrosis is seen. Again seen is evidence of partial sigmoid colon resection with colocolic anastomosis. The small and large bowel are normal in caliber. There is no bowel wall thickening. The appendix is not identified. The urinary bladder is unremarkable. The patient is status post hysterectomy, as per provided history. There is nonspecific soft tissue density superior to the expected region of the vaginal cuff. There is decreased omental nodularity in the left upper quadrant and anterior left abdominopelvic region. There is no ascites. No pneumoperitoneum is seen. There are no arterial calcifications. No suspicious osseous lesion is idenitified. IMPRESSION: 1. Status post hysterectomy, as per provided history. There is nonspecific soft tissue density superior to the expected region of the vaginal cuff, possibly neoplasm recurrence. Further evaluation with non emergent contrast enhanced pelvis MRI is recommended. 2. Subtle nodularity along the anterior aspect of the liver, not significantly changed. This could represent metastatic serosal implants. 3. Decreased omental nodularity in the left upper quadrant and anterior left abdominopelvic region. 3. Status post partial sigmoid colon resection with colocolic anastomosis. 4. The appendix is not identified. If there is concern for appendicitis, close clinical follow-up is recommended. RPTAT: HTAR .Parth Carcamo MD, MD Date Time Electronically viewed and signed by .Parth Carcamo MD, MD on 02/19/2017 21:44 .R/ CC: ASHWIN SANTACRUZ DO Patient's labs are unremarkable and she feels better. She may have a virus or bad food exposure Nothing significant on CT scan or blood work We will have her observe at home and try Bentyl with Shannon Told her to follow-up with MRI of pelvis with intravenous and oral contrast based off of her CAT scan findings tonight to rule out a return of neoplasm Departure Diagnosis: Primary Impression: Abdominal pain Abdominal location: lower abdomen, unspecified Qualified Code: R10.30 - Lower abdominal pain Condition: Stable Patient Instructions: Abdominal Pain Referrals: STEPHANIE ESQUIVEL MD (PCP) ASHWIN SANTACRUZ DO February 19, 2017 22:23
[2017-02-19 22:43] VITALS: BP 115/68; PULSE 58; RESP 20; TEMP 98.1
[2017-02-19] MEDS ORDERED: METOCLOPRAMIDE 10 MG INJ IV ONE (23:00)
== END 2017-02-19 22:43 | disposition home or self-care (01) ==
LOC: E/R 16:09
DX: R10.30 Lower abdominal pain, unspecified (principal); C56.9 Malignant neoplasm of unspecified ovary; R11.0 Nausea
CPT/HCPCS: 36415; 74177; 80053; 81001; 83540; 83690; 85025; 86304; 96374; 96375; J1170; J2405; J2765; J7030; Q9967; Z7502; Z7610; 81003

== ENCOUNTER 2017-07-18 06:18 | Emergency (ER) | payer OTHER ==
[~2017-07-18] VITALS: Ht 157.5 cm; Wt 54.0 kg
[~2017-07-18 06:18] MED LIST changes: +ACET-141 PO; +CHOL100062 PO; +DICY10CA60 PO; +IRON1TAB77 PO; +IRON1TAB78 PO
[2017-07-18 06:25] VITALS: Ht 157.5 cm; Wt 54.0 kg
[2017-07-18] MEDS ORDERED: ONDANSETRON 4 MG INJ IV STA (06:58)
[2017-07-18] MEDS ORDERED: morphine 4 MG/ML VIAL IV STA (06:58)
[2017-07-18] MEDS ORDERED: SOD CHLORIDE 0.9% 1,000 ML IV STA (07:15)
[2017-07-18] MEDS ORDERED: KETOROLAC 30 MG INJ IV STA (07:19)
[2017-07-18 08:01] LABS: BASOPHILS % 0.5 % (0.0-2.0); EOSINOPHILS # 0.2 10^3/ul (0.0-0.5); EOSINOPHILS % 4.5 % (0.0-7.0); HEMATOCRIT 37.2 % (37.0-47.0); HEMOGLOBIN 12.5 g/dl (12.0-16.0); LYMPHOCYTES # 1.5 10^3/ul (0.8-2.9); MEAN CORPUSCULAR HEMOGLOBIN 33.2 pg (29.0-33.0); MEAN CORPUSCULAR HGB CONC 33.6 g/dl (32.0-37.0); MEAN CORPUSCULAR VOLUME 98.7 fl (82.0-101.0); MEAN PLATELET VOLUME 10.7 fl (7.4-10.4); MONOCYTE # 0.4 10^3/ul (0.3-0.9); MONOCYTES % 9.5 % (0.0-11.0); NEUTROPHIL # 2.3 10^3/ul (1.6-7.5); NEUTROPHILS % 52.3 % (39.0-77.0); PLATELET COUNT 150 10^3/UL (140-415); RED BLOOD COUNT 3.77 10^6/ul (4.20-5.40); RED CELL DISTRIBUTION WIDTH 11.3 % (11.5-14.5); WHITE BLOOD COUNT 4.4 10^3/ul (4.8-10.8)
[2017-07-18 08:05] LABS: ADD UMIC NO; UR ASCORBIC ACID NEGATIVE (NEGATIVE); UR BILIRUBIN (Dip) NEGATIVE (NEGATIVE); UR BLOOD (Dip) NEGATIVE (NEGATIVE); UR CLARITY CLEAR (CLEAR); UR COLOR STRAW (YELLOW); UR GLUCOSE (Dip) NEGATIVE (NEGATIVE); UR KETONES (Dip) NEGATIVE (NEGATIVE); UR LEUKOCYTE ESTERASE (Dip) NEGATIVE Leu/ul (NEGATIVE); UR NITRITE (Dip) NEGATIVE (NEGATIVE); UR SPECIFIC GRAVITY (Dip) 1.011 (1.003-1.030); UR TOTAL PROTEIN (Dip) NEGATIVE (NEGATIVE); UR UROBILINOGEN (Dip) NEGATIVE (NEGATIVE)
[2017-07-18 08:21] LABS: ALBUMIN 4.5 g/dl (3.3-4.9); ALBUMIN/GLOBULIN RATIO 1.5; BILIRUBIN,INDIRECT 0.3 mg/dl (0-1.1); BILIRUBIN,TOTAL 0.3 mg/dl (0.2-1.3); CALCIUM 9.3 mg/dl (8.4-10.2); CREATININE 0.7 mg/dl (0.44-1.00); POTASSIUM 4.2 mmol/L (3.5-5.1); TOTAL PROTEIN 7.5 g/dl (6.1-8.1)
[2017-07-18] MEDS ORDERED: SOD CHLORIDE 0.9% 100 ML ONE (08:59)
[2017-07-18] MEDS ORDERED: IOHEXOL 300MG/ML 150 ML BTL ONE (08:59)
--- NOTE | 2017-07-18 09:28 | ERD ---
ER Documentation Chief Complaint Date/Time DATE: 07/18/17 TIME: 09:23 Chief Complaint Pt with c/o RLQ AP X 2-3 days, denies N/V/D/fever HPI This is a 37-year-old female who presents to the emergency department today complaining of right-sided abdominal pain for the past 3 days. States she has a history of ovarian cancer and has had a hysterectomy. States she has also had some of her bowel removed and she is concerned that there is an opening in her bowel was a stapled it shut. States that she feels like her stomach has been getting swollen. States that she recently had 2 PET scans. Denies any fevers or chills or nausea or vomiting constipation and states that her last chemo treatment was in May. ROS All systems reviewed and are negative except as per history of present illness. Medications Home Meds Active Scripts Acetaminophen* (Tylophen*) 500 Mg Capsule, 1 CAP PO Q6H Y for PAIN AND OR ELEVATED TEMP, #30 CAP Prov:GLADYS DAUGHERTY PA-C 07/18/17 Naproxen* (Naprosyn*) 500 Mg Tablet, 500 MG PO BID Y for PAIN AND/OR INFLAMMATION, #30 TAB Prov:GLADYS DAUGHERTY PA-C 07/18/17 Docusate Sodium* (Colace*) 100 Mg Capsule, 100 MG PO TID, #30 CAP Prov:GLADYS DAUGHERTY PA-C 07/18/17 Polyethylene Glycol* (Miralax*) 17 Gm Powd.pack, 17 GM PO DAILY, #30 PACKET Prov:GLADYS DAUGHERTY PA-C 07/18/17 Dicyclomine Hcl* (Bentyl*) 10 Mg Capsule, 20 MG PO QID for abd pain, #14 CAP Prov:LYDIA SANTACRUZSTLAURIES AAlfredo DO 02/19/17 Hydrocodone/Acetaminophen ([place] 5-325 Tablet) 1 Each Tablet, 1 TAB PO Q6H Y for PAIN, #20 TAB Prov:LYDIA SANTACRUZSTLAURIES A. DO 02/19/17 Ondansetron Hcl* (Zofran*) 8 Mg Tablet, 8 MG PO Q8 Y for NAUSEA AND OR VOMITING , #30 TAB 3 Refills Prov:MARCO ANTONIO STOUT 01/15/17 Hydrocodone/Acetaminophen ([place] 5-325 Tablet) 1 Each Tablet, 1 TAB PO Q6H Y for PAIN, #30 TAB 0 Refills Prov:MARCO ANTONIO STOUT 01/15/17 Reported Medications Iron,Carbonyl/Ascorbic Acid (IRON 100-VITAMIN C TABLET) 1 Each Tablet, 1 EACH PO , TAB 02/19/17 Iron,Carbonyl/Vit C/Vit B12/Fa (IRON 100 PLUS TABLET) 1 Each Tablet, 1 EACH PO, TAB 02/19/17 Acetaminophen* (Acetaminophen*) 500 MG Extra Strength Tablet, 500 MG PO Q4H Y for PAIN, TAB 02/19/17 Cholecalciferol* (Vitamin D3*) 1,000 Unit Tablet, 1000 UNIT PO DAILY, TAB 02/19/17 Allergies Allergies: Coded Allergies: No Known Allergy (Verified , 02/19/17) PMhx/Soc History of Surgery: Yes (TAHBSO Jul 2016) Anesthesia Reaction: No Hx Neurological Disorder: No Hx Respiratory Disorders: No Hx Cardiac Disorders: No Hx Psychiatric Problems: No Hx Miscellaneous Medical Probl: Yes (Ovarian CA w/ mets (stage 4)) Hx Alcohol Use: No Hx Substance Use: No Hx Tobacco Use: No Physical Exam Vitals Vital Signs Date Time Temp Pulse Resp B/P Pulse Ox O2 Delivery O2 Flow Rate FiO2 07/18/17 06:25 97.0 64 16 117/71 100 Physical Exam Const: NAD, Head: Atraumatic Eyes: Normal Conjunctiva ENT: Normal External Ears, Nose and Mouth. Neck: Full range of motion..~ No meningismus. Resp: Clear to auscultation bilaterally Cardio: Regular rate and rhythm, no murmurs Abd: Soft, right sided abdominal pain non distended. Normal bowel sounds with evidence of surgical scar Skin: evidence of surgical scar Back: No midline or flank tenderness Ext: No cyanosis, or edema Neur: Awake and alert Psych: Normal Mood and Affect Result Diagram: 07/18/17 0707 07/18/17 0707 Results 24 hrs Laboratory Tests Test 07/18/17 07:07 White Blood Count 4.410^3/ul Red Blood Count 3.7710^6/ul Hemoglobin 12.5g/dl Hematocrit 37.2% Mean Corpuscular Volume 98.7fl Mean Corpuscular Hemoglobin 33.2pg Mean Corpuscular Hemoglobin Concent 33.6g/dl Red Cell Distribution Width 11.3% Platelet Count 37027^3/UL Mean Platelet Volume 10.7fl Neutrophils % 52.3% Lymphocytes % 33.0% Monocytes % 9.5% Eosinophils % 4.5% Basophils % 0.5% Nucleated Red Blood Cells % 0.0/100WBC Neutrophils # 2.310^3/ul Lymphocytes # 1.510^3/ul Monocytes # 0.410^3/ul Eosinophils # 0.210^3/ul Basophils # 0.010^3/ul Nucleated Red Blood Cells # 0.010^3/ul Urine Color STRAW Urine Clarity CLEAR Urine pH 7.0 Urine Specific Page 1.011 Urine Ketones NEGATIVEmg/dL Urine Nitrite NEGATIVEmg/dL Urine Bilirubin NEGATIVEmg/dL Urine Urobilinogen NEGATIVEmg/dL Urine Leukocyte Esterase NEGATIVELeu/ul Urine Hemoglobin NEGATIVEmg/dL Urine Glucose NEGATIVEmg/dL Urine Total Protein NEGATIVEmg/dl Sodium Level 142mmol/L Potassium Level 4.2mmol/L Chloride Level 105mmol/L Carbon Dioxide Level 29mmol/L Anion Gap 12 Blood Urea Nitrogen 11mg/dl Creatinine 0.70mg/dl Glucose Level 87mg/dl Calcium Level 9.3mg/dl Total Bilirubin 0.3mg/dl Direct Bilirubin 0.00mg/dl Indirect Bilirubin 0.3mg/dl Aspartate Amino Transf (AST/SGOT) 40IU/L Alanine Aminotransferase (ALT/SGPT) 53IU/L Alkaline Phosphatase 72IU/L Total Protein 7.5g/dl Albumin 4.5g/dl Globulin 3.00g/dl Albumin/Globulin Ratio 1.50 Lipase 157U/L Current Medications Medications (Trade) Dose Ordered Sig/Sharon Route PRN Reason Start Time Stop Time Status Last Admin Dose Admin Morphine Sulfate (morphine) 4 mg ONCE STAT IV 07/18/17 06:58 07/18/17 07:20 DC 07/18/17 07:15 Ondansetron HCl 4 mg 4 mg ONCE STAT IV 07/18/17 06:58 07/18/17 06:59 DC 07/18/17 07:15 Sodium Chloride (NS) 1,000 ml @ 1,000 mls/hr Q1H STAT IV 07/18/17 07:15 07/18/17 08:14 DC 07/18/17 07:17 Ketorolac Tromethamine (Toradol) 30 mg ONCE STAT IV 07/18/17 07:19 07/18/17 07:20 DC 07/18/17 07:23 Iohexol 150 ml 150 ml STK-MED ONCE .ROUTE 07/18/17 08:59 07/18/17 09:00 DC Sodium Chloride (NS) 100 ml @ ud STK-MED ONCE .ROUTE 07/18/17 08:59 07/18/17 09:00 DC DIAGNOSTIC IMAGING REPORT Patient: EZEKIEL GARCIA : 1980 Age: 37 Sex: F MR #: [id number] DOS: 07/18/17 0715 Ordering MD: GLADYS DAUGHERTY PA-C Location: [facility] Room/Bed: PROCEDURE: CT abdomen and pelvis with intravenous contrast. CLINICAL INDICATION: Abdominal Pain TECHNIQUE: CT scan of the abdomen and pelvis with intravenous contrast was performed and is reconstructed at 2.5 mm contiguous axial intervals from the dome of the diaphragm to the inferior pubic rami.. The patient was scanned without oral contrast. Sagittal and coronal reformatted images were obtained from the axial source images. The calculated radiation dose measures 265 mGy centimeters. The CTDI measures 5 mGy. Individualized dose optimization technique was used for the performance of this exam. This included 1. Automated exposure control. 2. Adjustment of the mA and / or kV according to the patient's size. 3. Use of iterative reconstructed technique. COMPARISON: CT abdomen pelvis February 19, 2017 FINDINGS: The lung bases are clear of any infiltrate or nodule. No effusion is seen. The liver is of normal size, contour and attenuation with no mass or ductal dilatation. No gallstones are visualized. No splenic, adrenal or pancreatic abnormalities present. Kidneys enhance symmetrically and are of normal size and contour. No hydronephrosis, calculus or masses seen. Ureters are of normal course and caliber with no stone. No bladder mass or stone is present. Uterus and ovaries are normal. There is no aneurysm. No adenopathy is present. No bowel mass or obstruction is present. The appendix is not confidently visualized, however, no inflamed appendix is seen. There has been primary resection of the sigmoid. There is constipation.. No phlegmon, ascites or pneumoperitoneum is visualized. The osseous structures are intact. IMPRESSION: No evidence of urolithiasis, obstructive uropathy, diverticulitis or appendicitis. .Phong Gutierrez MD, MD Date Time Electronically viewed and signed by .Phong Gutierrez MD, MD on 07/18/2017 09: 55 .A/ CC: GLADYS DAUGHERTY PA-C Procedures/MDM This is a 37-year-old female who presents to the emergency department today for right-sided abdominal pain for the past 3 days. Review of patient's medical record she was last seen here in February 19, 2017 there was some concern at that time for possible new nodule however patient was discharged home in stable condition. Today patient states that this pain is not what she usually has and given patient's complex medical history I did obtain laboratory workup as well as an imaging after discussing the patient with Dr. Roman Laboratory workup shows a very mildly decreased white blood cell count. She is not anemic. Platelets are within normal limits. Electrolytes are within normal limits. Glucose within normal limits. Liver enzymes are within normal limits. Lipase is within normal limits. UA is negative for infection CT abdomen pelvis with contrast shows no evidence of urolithiasis, obstructive uropathy, diverticulitis or appendicitis. There is no bladder mass or stone. Uterus and ovaries are normal. There is no inflamed appendix seen. There is no bowel mass or obstruction. There is constipation. She indicated that she came to the emergency department because her primary care doctor is not able to see her. I explained to the patient that given her multiple concerns that she should have regular follow-up with her primary care doctor not wait until she has some aspect of pain. Patient was also concerned about a lump on her left hand finger and that they had found a " lump" a chest x -ray despite being told by her radar tester that it is not cancerous. Symptoms at this time is consistent with right-sided abdominal pain and constipation. No evidence to suggest acute surgical abdomen. She was given IV fluids, Toradol here in the emergency department as she declined morphine. Patient will be given a prescription for Naprosyn, Tylenol, MiraLAX and Colace At this time the patient is stable for discharge and outpatient management. Patient should follow up with their PCP in the next 1-2 days. They may return to the emergency department sooner for any persistent or worsening of symptoms. Patient understood and agreed with the plan. Departure Diagnosis: Primary Impression: Abdominal pain Abdominal location: generalized Qualified Code: R10.84 - Generalized abdominal pain Condition: Fair GLADYS DAUGHERTY PA-C Jul 18, 2017 09:28
--- NOTE | 2017-07-18 09:55 | RADRPT ---
PROCEDURE: CT abdomen and pelvis with intravenous contrast. CLINICAL INDICATION: Abdominal Pain TECHNIQUE: CT scan of the abdomen and pelvis with intravenous contrast was performed and is recons tructed at 2.5 mm contiguous axial intervals from the dome of the diaphragm to the inferior pubic ra mi.. The patient was scanned without oral contrast. Sagittal and coronal reformatted images were o btained from the axial source images. The calculated radiation dose measures 265 mGy centimeters. Th e CTDI measures 5 mGy. Individualized dose optimization technique was used for the performance of this exam. This included 1. Automated exposure control. 2. Adjustment of the mA and / or kV according to the patient's size. 3. Use of iterative reconstructed technique. COMPARISON: CT abdomen pelvis February 19, 2017 FINDINGS: The lung bases are clear of any infiltrate or nodule. No effusion is seen. The liver is of normal size, contour and attenuation with no mass or ductal dilatation. No gallston es are visualized. No splenic, adrenal or pancreatic abnormalities present. Kidneys enhance symmetrically and are of normal size and contour. No hydronephrosis, calculus or m asses seen. Ureters are of normal course and caliber with no stone. No bladder mass or stone is pr esent. Uterus and ovaries are normal. There is no aneurysm. No adenopathy is present. No bowel mass or obstruction is present. The appendix is not confidently visualized, however, no inflamed appendix is seen. There has been primary resection of the sigmoid. There is constipation.. No phlegmon, ascites or pneumoperitoneum is visualized. The osseous structures are intact. IMPRESSION: No evidence of urolithiasis, obstructive uropathy, diverticulitis or appendicitis. .Phong Gutierrez MD, Date Time Electronically viewed and signed by .Phong Gutierrez MD, MD on 07/18/2017 09:55 .A/
[2017-07-18] MEDS ORDERED: POLY17PO6 PO (10:21)
[2017-07-18] MEDS ORDERED: ACET500C5 PO (10:21)
[2017-07-18] MEDS ORDERED: NAPR-260 PO (10:21)
[2017-07-18] MEDS ORDERED: DOCU-144 PO (10:21)
[2017-07-18 10:50] VITALS: BP 111/70; PULSE 74; RESP 16; TEMP 97
== END 2017-07-18 10:50 | disposition home or self-care (01) ==
LOC: FTE 06:18
DX: R10.84 Generalized abdominal pain (principal); Z85.43 Personal history of malignant neoplasm of ovary
CPT/HCPCS: 36415; 74177; 80053; 81003; 83690; 85025; 96374; 96375; J1885; J2405; J7030; Q9967; Z7502; Z7610; J2270

== ENCOUNTER 2017-12-29 10:10 | Emergency (ER) | END 2017-12-29 15:53 | disposition home or self-care (01) ==

== ENCOUNTER 2018-01-05 16:34 | Emergency (ER) | END 2018-01-05 21:52 | disposition home or self-care (01) ==

== ENCOUNTER 2018-01-07 12:06 | Observation (INO) | END 2018-01-10 14:19 | disposition home or self-care (01) ==

== ENCOUNTER 2018-05-12 01:25 | Observation (INO) | END 2018-05-13 16:13 | disposition home or self-care (01) ==

== ENCOUNTER 2018-07-27 12:59 | Emergency (ER) | END 2018-07-27 16:44 | disposition home or self-care (01) ==

== ENCOUNTER 2018-08-20 17:13 | Emergency (ER) | END 2018-08-20 18:52 | disposition home or self-care (01) ==

== ENCOUNTER 2018-09-06 13:58 | Emergency (ER) | END 2018-09-06 16:34 | disposition home or self-care (01) ==

== ENCOUNTER 2018-09-07 00:48 | Emergency (ER) | END 2018-09-07 03:57 | disposition home or self-care (01) ==

== ENCOUNTER 2018-10-13 14:59 | Emergency (ER) | payer OTHER ==
[~2018-10-13] VITALS: Wt 63.6 kg
[~2018-10-13 14:59] MED LIST changes: -ACET-141 PO; +ACET160O41 PO; -CHOL100062 PO; -DICY10CA60 PO; -HYDR-906 PO; +IBUP-1542 PO; -IRON1TAB77 PO; -IRON1TAB78 PO; +NITR-58 PO; -ONDA8TAB9 PO
[2018-10-13] MEDS ORDERED: morphine 4 MG/ML VIAL IV STA (22:03)
[2018-10-13] MEDS ORDERED: ONDANSETRON 4 MG INJ IV STA (22:03)
[2018-10-13] MEDS ORDERED: SOD CHLORIDE 0.9% 500 ML IV STA (22:03)
[2018-10-13] MEDS ORDERED: ASCO500C7 PO (23:25)
[2018-10-13] MEDS ORDERED: CYAN500T46 PO (23:25)
[2018-10-13] MEDS ORDERED: KETOROLAC 30 MG INJ IV ONE (23:44)
[2018-10-14] MEDS ORDERED: RANI150T35 PO (01:03)
[2018-10-14] MEDS ORDERED: SUCR1TAB56 PO (01:03)
[2018-10-14 01:23] VITALS: BP 102/80; PULSE 66; RESP 15
[2018-10-14] MEDS ORDERED: ACET500C5 PO (11:41)
[2018-10-14] MEDS ORDERED: DICY10CA40 PO (11:42)
[2018-10-14] MEDS ORDERED: CEPH-443 PO (12:48)
--- NOTE | 2018-10-31 23:15 | ERD ---
ER Documentation Chief Complaint Chief Complaint epig pain "burning" since PM; L chest pain rad to arm. reproducible pain. HPI This is a 38 with epigastric burning pains in his p.m. Pain is mild to moderate intensity. Radiates up her chest. Mild nausea no vomiting no fevers no chills. No other current complaints. ROS All systems reviewed and are negative except as per history of present illness. Medications Home Meds Active Scripts Cephalexin* (Keflex*) 500 Mg Capsule, 500 MG PO BID for infection for 7 Days, #14 CAP 0 Refills Prov:RACH CASTILLO 10/14/18 Dicyclomine HCl (Dicyclomine HCl) 10 Mg Capsule, 10 MG PO TID PRN for ABDOMINAL CRAMPING, #20 CAP 0 Refills Prov:RACH CASTILLO 10/14/18 Acetaminophen* (Tylophen*) 500 Mg Capsule, 1 CAP PO Q6H PRN for PAIN AND OR ELEVATED TEMP, #30 CAP 0 Refills Prov:RACH CASTILLO 10/14/18 Ranitidine Hcl* (Zantac*) 150 Mg Tablet, 150 MG PO BID PRN for EPIGASTRIC PAIN, #30 TAB Prov:RACH CARRILLO 10/14/18 Sucralfate* (Carafate*) 1 Gm Tab, 1 GM PO QID, #20 TAB Prov:ZANRACH LEGER 10/14/18 Acetaminophen* (Acetaminophen* Susp) 160 Mg/5 Ml Oral.susp, 500 MG PO Q4H PRN for PAIN OR FEVER MDD 5, #1 BOTTLE Prov:NEMESIO DENNIS PA-C 09/07/18 Ibuprofen* (Motrin*) 600 Mg Tab, 600 MG PO Q8 PRN for PAIN AND/OR INFLAMMATION, #30 TAB Prov:NAVYA MORALES MD 09/06/18 Reported Medications Cyanocobalamin* (Vitamin B12*) 500 Mcg Tab, 1000 MCG PO DAILY, TAB 10/13/18 Ascorbic Acid* (Vitamin C*) 500 Mg Capsule.sa, 500 MG PO DAILY, CAP 10/13/18 Allergies Allergies: Coded Allergies: No Known Allergy (Unverified , 10/13/18) PMhx/Soc History of Surgery: Yes (hysterectomy 2015) Anesthesia Reaction: No Hx Neurological Disorder: No Hx Respiratory Disorders: No Hx Cardiac Disorders: No Hx Psychiatric Problems: No Hx Miscellaneous Medical Probl: Yes (ovarian cancer) Hx Alcohol Use: No Hx Substance Use: No Hx Tobacco Use: No Smoking Status: Never smoker Physical Exam Physical Exam Const: No acute distress Head: Atraumatic Eyes: Normal Conjunctiva ENT: Normal External Ears, Nose and Mouth. Neck: Full range of motion. No meningismus. Resp: Clear to auscultation bilaterally Cardio: Regular rate and rhythm, no murmurs Abd: Soft, non tender, non distended. Normal bowel sounds Skin: No petechiae or rashes Back: No midline or flank tenderness Ext: No cyanosis, or edema Neur: Awake and alert Psych: Normal Mood and Affect Results 24 hrs Laboratory Tests Test 10/13/18 22:15 10/13/18 22:25 Urine Color YELLOW Urine Clarity CLEAR Urine pH 6.0 Urine Specific [place] 1.015 Urine Ketones NEGATIVE mg/dL Urine Nitrite NEGATIVE mg/dL Urine Bilirubin NEGATIVE mg/dL Urine Urobilinogen NEGATIVE mg/dL Urine Leukocyte Esterase 1+ Marguerite/ul Urine Microscopic RBC 0 /HPF Urine Microscopic WBC 6 /HPF Urine Mucus FEW /HPF Urine Hemoglobin NEGATIVE mg/dL Urine Glucose NEGATIVE mg/dL Urine Total Protein NEGATIVE mg/dl White Blood Count 6.2 10^3/ul Red Blood Count 3.71 10^6/ul Hemoglobin 12.3 g/dl Hematocrit 36.6 % Mean Corpuscular Volume 98.7 fl Mean Corpuscular Hemoglobin 33.2 pg Mean Corpuscular Hemoglobin Concent 33.6 g/dl Red Cell Distribution Width 11.5 % Platelet Count 181 10^3/UL Mean Platelet Volume 9.3 fl Immature Granulocytes % 0.000 % Neutrophils % 55.5 % Lymphocytes % 30.2 % Monocytes % 10.4 % Eosinophils % 3.7 % Basophils % 0.2 % Nucleated Red Blood Cells % 0.0 /100WBC Immature Granulocytes # 0.000 10^3/ul Neutrophils # 3.4 10^3/ul Lymphocytes # 1.9 10^3/ul Monocytes # 0.6 10^3/ul Eosinophils # 0.2 10^3/ul Basophils # 0.0 10^3/ul Nucleated Red Blood Cells # 0.0 10^3/ul Sodium Level 140 mmol/L Potassium Level 4.0 mmol/L Chloride Level 105 mmol/L Carbon Dioxide Level 27 mmol/L Anion Gap 8 Blood Urea Nitrogen 12 mg/dl Creatinine 0.61 mg/dl Est Glomerular Filtrat Rate mL/min > 60 mL/min Glucose Level 102 mg/dl Calcium Level 9.1 mg/dl Total Bilirubin 0.2 mg/dl Direct Bilirubin 0.00 mg/dl Indirect Bilirubin 0.2 mg/dl Aspartate Amino Transf (AST/SGOT) 39 IU/L Alanine Aminotransferase (ALT/SGPT) 46 IU/L Alkaline Phosphatase 97 IU/L Troponin I < 0.012 ng/ml Total Protein 7.4 g/dl Albumin 4.1 g/dl Globulin 3.30 g/dl Albumin/Globulin Ratio 1.24 Lipase 164 U/L Current Medications Medications Dose Sig/Sharon Start Time Status Last (Trade) Ordered Route PRN Stop Time Admin Dose Reason Admin Sodium 500 ml @ Q1H STAT 10/13/18 DC 10/13/18 Chloride 500 mls/hr IV 22:03 22:36 10/13/18 23:02 Morphine 4 mg ONCE STAT 10/13/18 DC Sulfate IV 22:03 (morphine) 10/13/18 22:12 Ondansetron 4 mg ONCE STAT 10/13/18 DC 10/13/18 HCl (Zofran IV 22:03 22:37 Inj) 10/13/18 22:12 Ketorolac 30 mg ONCE ONCE 10/13/18 DC 10/14/18 Tromethamine IV 23:44 00:26 (Toradol) 10/13/18 23:45 Procedures/MDM Chest X-ray 1V Interpreted by me: Soft Tissue: No acute abnormalities Bones: No acute abnormalities Mediastinum/Cardiac Silhouette/Lungs: [No acute abnormalities] Medical decision making: Very pleasant patient with epigastric abdominal pain. At this point clinically stable for trial of outpatient management. Likely gastric in nature. Advised to follow-up in 8 hours for serial abdominal exams. Patient's gastrointestinal symptoms have stabilized while in the department. No evidence of severe dehydration, sepsis, or surgical abdomen. Extensive discussion with family and patient that occult disease cannot be ruled out. 8 hour recheck for repeat abdominal exam is planned. Departure Diagnosis: Primary Impression: Multiple complaints Condition: Stable Patient Instructions: Abdominal Pain, Unknown Cause, (Female) RACH CARRILLO Oct 31, 2018 23:15
== END 2018-10-14 01:40 | disposition home or self-care (01) ==
LOC: E/R 14:59
DX: R10.13 Epigastric pain (principal); R07.9 Chest pain, unspecified; R11.0 Nausea; Z85.43 Personal history of malignant neoplasm of ovary
CPT/HCPCS: 71045; 74176; 80053; 81001; 83690; 84484; 85025; 93005; J1885; J2405; J7040; 36415; 96374; 96375

== ENCOUNTER 2018-10-14 10:27 | Emergency (ER) | payer OTHER ==
[~2018-10-14] VITALS: Ht 167.6 cm; Wt 65.0 kg
[~2018-10-14 10:27] MED LIST changes: +ASCO500C7 PO; +CYAN500T46 PO; -NITR-58 PO; +RANI150T35 PO; +SUCR1TAB56 PO
[2018-10-14 10:32] VITALS: Ht 167.6 cm; Wt 65.0 kg
[2018-10-14] MEDS ORDERED: KETOROLAC 60 MG INJ IM STA (11:29)
--- NOTE | 2018-10-14 11:36 | ERD ---
ER Documentation Chief Complaint Chief Complaint complains of fever and abdominal pain x 2 days HPI 38-year-old female presents with 2-day history of abdominal pain and diarrhea. Patient was just here yesterday, diagnosed with gastritis. Also CBC, CMP, and abdominal CT were performed with no abnormalities. The patient states that she is feeling worse and wants to make sure that we got the right diagnosis. Patient able to ambulate. States that she also has some dysuria. She strongly believes she has a UTI. Denies vomiting, denies hematuria, denies hematochezia. Denies past medical history. Denies allergies. No medications aside from ibuprofen. ROS All systems reviewed and are negative except as per history of present illness. Medications Home Meds Active Scripts Cephalexin* (Keflex*) 500 Mg Capsule, 500 MG PO BID for infection for 7 Days, #14 CAP 0 Refills Prov:RACH CASTILLO 10/14/18 Dicyclomine HCl (Dicyclomine HCl) 10 Mg Capsule, 10 MG PO TID PRN for ABDOMINAL CRAMPING, #20 CAP 0 Refills Prov:RACH CASTILLO 10/14/18 Acetaminophen* (Tylophen*) 500 Mg Capsule, 1 CAP PO Q6H PRN for PAIN AND OR ELEVATED TEMP, #30 CAP 0 Refills Prov:RACH CASTILLO 10/14/18 Ranitidine Hcl* (Zantac*) 150 Mg Tablet, 150 MG PO BID PRN for EPIGASTRIC PAIN, #30 TAB Prov:RACH CARRILLO 10/14/18 Sucralfate* (Carafate*) 1 Gm Tab, 1 GM PO QID, #20 TAB Prov:RACH CARRILLO 10/14/18 Acetaminophen* (Acetaminophen* Susp) 160 Mg/5 Ml Oral.susp, 500 MG PO Q4H PRN for PAIN OR FEVER MDD 5, #1 BOTTLE Prov:NEMESIO DENNIS PA-C 09/07/18 Ibuprofen* (Motrin*) 600 Mg Tab, 600 MG PO Q8 PRN for PAIN AND/OR INFLAMMATION, #30 TAB Prov:NAVYA MORALES MD 09/06/18 Reported Medications Cyanocobalamin* (Vitamin B12*) 500 Mcg Tab, 1000 MCG PO DAILY, TAB 10/13/18 Ascorbic Acid* (Vitamin C*) 500 Mg Capsule.sa, 500 MG PO DAILY, CAP 10/13/18 Discontinued Scripts Nitrofurantoin Monohyd Macrocr* (Macrobid*) 100 Mg Capsr, 100 MG PO BID, #10 CAP Prov:NEMESIO DENNIS PA-C 09/07/18 Allergies Allergies: Coded Allergies: No Known Allergy (Unverified , 10/13/18) PMhx/Soc History of Surgery: Yes (hysterectomy 2016) Anesthesia Reaction: No Hx Neurological Disorder: No Hx Respiratory Disorders: No Hx Cardiac Disorders: No Hx Psychiatric Problems: No Hx Miscellaneous Medical Probl: Yes (ovarian cancer) Hx Alcohol Use: No Hx Substance Use: No Hx Tobacco Use: No FmHx Family History: No diabetes, No coronary disease, No other Physical Exam Vitals Vital Signs Date Temp Pulse Resp B/P (MAP) Pulse Ox O2 O2 Flow FiO2 Time Delivery Rate 10/14/18 97.3 72 20 122/72 98 10:32 (89) Physical Exam General: Well developed, will nourished. No acute distress. Lungs: Clear to auscultation bilaterally w/o wheezes, crackles, rhonchi. Symmetric rise and fall. Equal breath sounds. Abdomen: Soft, nontender, with no rigidity or guarding noted. No masses, lesions, or ecchymoses. Normoactive bowel sounds. No McBurney's point tenderness. Patient ambulatory. No tenderness to palpation in splenic area or splenomegaly. No CVA tenderness. Patient able to jump up and down on exam. Psych: Normal mood and affect. Results 24 hrs Laboratory Tests Test 10/14/18 11:34 10/14/18 12:03 Urine Color STRAW Urine Clarity CLEAR Urine pH 8.0 Urine Specific [place] 1.006 Urine Ketones NEGATIVE mg/dL Urine Nitrite NEGATIVE mg/dL Urine Bilirubin NEGATIVE mg/dL Urine Urobilinogen NEGATIVE mg/dL Urine Leukocyte Esterase TRACE Marguerite/ul Urine Microscopic RBC 0 /HPF Urine Microscopic WBC 0 /HPF Urine Bacteria FEW /HPF Urine Hemoglobin NEGATIVE mg/dL Urine Glucose NEGATIVE mg/dL Urine Total Protein NEGATIVE mg/dl POC Beta HCG, Qualitative NEGATIVE Current Medications Medications Dose Sig/Sharon Start Time Status Last (Trade) Ordered Route PRN Stop Time Admin Dose Reason Admin Ketorolac 60 mg ONCE STAT 10/14/18 DC 10/14/18 Tromethamine IM 11:29 12:13 (Toradol) 10/14/18 11:32 Ceftriaxone 500 mg ONCE ONCE 10/14/18 DC 10/14/18 Sodium IM 12:30 12:16 (Rocephin) 10/14/18 12:31 Lidocaine 5 ml ONCE ONCE 10/14/18 DC 10/14/18 (Xylocaine INJ 12:30 12:16 1% (Mpf)) 10/14/18 12:31 Procedures/MDM ER Course: UA, UC, toradol, ceftriaxone. MDM: I have low suspicion for appendicitis due to patient history and exam, including normal abdominal exam, lack of McBurney's point tenderness and ability of patient to jump up and down on exam. I have low suspicion for volvulus or obstruction due to lack of history of biliary emesis and normal physical exam. I have low suspicion of invasive diarrhea due to lack of hematochezia. I have low suspicion for dehydration due to moist and pink mucous membranes, patients non lethargic state, and normal cap refill. I have low suspicion of DKA based on patient history and exam. Patient also has a normal urinalysis, and lack of signs of dehydration. I have low suspicion for adrenal crisis, AAA, mesenteric ischemia, pyelonephritis, cholecystitis, aortic dissection, OK, pneumonia, PID, or other emergent causes based on patient history and exam. Most likely diagn osis is viral gastritis. Patient given rx for Bentyl and tylenol. Patient insisted on antibiotics due to her conviction that she had a UTI. I explained to her the unlikelihood of this as well as risks/benefits of abx use and prescribed her keflex after she said she understood and still insisted that wouldn't feel better without antibiotics. Mild leukocytes on UA and some possibility of bacterial cause of gastroenteritis. Patient was discharged with strict ER precautions. Patient was recommended to follow-up with PMD. All questions answered at discharge. Departure Diagnosis: Primary Impression: Abdominal pain Abdominal location: generalized Qualified Codes: R10.84 - Generalized abdominal pain Additional Impression: Diarrhea Diarrhea type: unspecified type Qualified Codes: R19.7 - Diarrhea, unspecified Condition: RACH Cook Oct 14, 2018 11:36
[2018-10-14] MEDS ORDERED: ACET500C5 PO (11:41)
[2018-10-14] MEDS ORDERED: DICY10CA40 PO (11:42)
[2018-10-14] MEDS ORDERED: CEFTRIAXONE 500 MG INJ IM ONE (12:30)
[2018-10-14] MEDS ORDERED: LIDOCAINE 1% (MPF) 5 ML VIAL INJ ONE (12:30)
[2018-10-14] MEDS ORDERED: CEPH-443 PO (12:48)
== END 2018-10-14 13:00 | disposition home or self-care (01) ==
LOC: FTE 10:27
DX: R10.84 Generalized abdominal pain (principal); R19.7 Diarrhea, unspecified; Z85.43 Personal history of malignant neoplasm of ovary
CPT/HCPCS: 81001; 81025; 87086; 96372; J0696; J1885; Z7502; Z7610

== ENCOUNTER 2019-01-14 10:59 | Emergency (ER) | payer OTHER ==
[~2019-01-14] VITALS: Wt 63.0 kg
[~2019-01-14 10:59] MED LIST changes: +ACET500C5 PO; +CEPH-443 PO; +DICY10CA40 PO
[2019-01-14] MEDS ORDERED: ONDANSETRON 4 MG INJ IV STA (13:11)
[2019-01-14] MEDS ORDERED: SODIUM CHLORIDE 0.9% 1L BAG IV* STA (13:11)
[2019-01-14] MEDS ORDERED: morphine 4 MG/ML VIAL IV STA (13:11)
--- NOTE | 2019-01-14 13:32 | ERD ---
ER Documentation Chief Complaint Chief Complaint RLQ PAIN W N/V HPI This is a 38-year-old female with a prior history of YAZMIN BSO for ovarian cancer, who presents for relation of 2 days of abdominal pain and nausea. Symptoms are intermittent, there are no alleviating or aggravating factors, she has not had a fever. She had chemotherapy on Thursday. Pain is localized to specific area and right lower quadrant. Patient states that she went to [facility] yesterday for the same pain, at that time the patient had blood work as well as CT scan of the abdomen pelvis. The CT showed no acute findings, but did show mild peritoneal thickening associated with mesenteric edema and a small amount of free fluid, this was thought to be likely be related to metastatic disease, however spontaneous bacterial peritonitis, was noted at the consideration. The patient had lab work done, which was notable only for a WBC of 2.8, otherwise patient wa s noted to have pyuria and was started on Macrobid. She also endorses an intermittent headache. ROS All systems reviewed and are negative except as per history of present illness. Medications Home Meds Reported Medications Ondansetron Hcl* (Zofran*) Unknown Strength Tab, 1 TAB PO Q4H PRN for NEEDED, TAB 01/14/19 Acetaminophen* (Acetaminophen*) 500 MG Extra Strength Tablet, 500 MG PO Q6H PRN for NEEDED, TAB 01/14/19 Ibuprofen* (Ibuprofen*) 600 Mg Tablet, 600 MG PO Q8 PRN for NEEDED, TAB 01/14/19 Discontinued Reported Medications Cyanocobalamin* (Vitamin B12*) 500 Mcg Tab, 1000 MCG PO DAILY, TAB 10/13/18 Ascorbic Acid* (Vitamin C*) 500 Mg Capsule.sa, 500 MG PO DAILY, CAP 10/13/18 Discontinued Scripts Cephalexin* (Keflex*) 500 Mg Capsule, 500 MG PO BID for infection for 7 Days, #14 CAP 0 Refills Prov:RACH CASTILLO 10/14/18 Dicyclomine HCl (Dicyclomine HCl) 10 Mg Capsule, 10 MG PO TID PRN for ABDOMINAL CRAMPING, #20 CAP 0 Refills Prov:RACH CASTILLO 10/14/18 Acetaminophen* (Tylophen*) 500 Mg Capsule, 1 CAP PO Q6H PRN for PAIN AND OR ELEVATED TEMP, #30 CAP 0 Refills Prov:RACH CASTILLO 10/14/18 Ranitidine Hcl* (Zantac*) 150 Mg Tablet, 150 MG PO BID PRN for EPIGASTRIC PAIN, #30 TAB Prov:RACH CARRILLO 10/14/18 Sucralfate* (Carafate*) 1 Gm Tab, 1 GM PO QID, #20 TAB Prov:RACH CARRILLO 10/14/18 Acetaminophen* (Acetaminophen* Susp) 160 Mg/5 Ml Oral.susp, 500 MG PO Q4H PRN for PAIN OR FEVER MDD 5, #1 BOTTLE Prov:NEMESIO DENNIS PA-C 09/07/18 Ibuprofen* (Motrin*) 600 Mg Tab, 600 MG PO Q8 PRN for PAIN AND/OR INFLAMMATION, #30 TAB Prov:NAVYA MORALES MD 09/06/18 Allergies Allergies: Coded Allergies: No Known Allergy (Unverified , 01/14/19) PMhx/Soc History of Surgery: Yes (АНДРЕЙSODago 2015) Anesthesia Reaction: No Hx Neurological Disorder: No Hx Respiratory Disorders: No Hx Cardiac Disorders: No Hx Psychiatric Problems: No Hx Miscellaneous Medical Probl: Yes (ovarian cancer) Hx Alcohol Use: No Hx Substance Use: No Hx Tobacco Use: No Smoking Status: Never smoker Physical Exam Vitals Vital Signs Date Temp Pulse Resp B/P (MAP) Pulse Ox O2 O2 Flow FiO2 Time Delivery Rate 01/14/19 97.8 73 20 122/81 100 Room Air 14:05 (95) 01/14/19 98.4 70 20 113/84 100 Room Air 12:45 (94) 01/14/19 98.4 71 20 139/65 98 11:12 (89) Physical Exam Const: No acute distress Head: Atraumatic Eyes: Normal Conjunctiva ENT: Normal External Ears, Nose and Mouth. Neck: Full range of motion. No meningismus. Resp: Clear to auscultation bilaterally Cardio: Regular rate and rhythm, no murmurs Abd: Soft, non tender, non distended. Normal bowel sounds Skin: No petechiae or rashes Back: No midline or flank tenderness Ext: No cyanosis, or edema Neur: Awake and alert Psych: Normal Mood and Affect Result Diagram: 01/14/19 1257 01/14/19 1257 Results 24 hrs Laboratory Tests Test 01/14/19 12:57 White Blood Count 3.7 10^3/ul Red Blood Count 3.84 10^6/ul Hemoglobin 12.2 g/dl Hematocrit 37.3 % Mean Corpuscular Volume 97.1 fl Mean Corpuscular Hemoglobin 31.8 pg Mean Corpuscular Hemoglobin Concent 32.7 g/dl Red Cell Distribution Width 13.7 % Platelet Count 154 10^3/UL Mean Platelet Volume 9.4 fl Immature Granulocytes % 0.300 % Neutrophils % 75.8 % Lymphocytes % 19.3 % Monocytes % 3.5 % Eosinophils % 0.8 % Basophils % 0.3 % Nucleated Red Blood Cells % 0.0 /100WBC Immature Granulocytes # 0.010 10^3/ul Neutrophils # 2.8 10^3/ul Lymphocytes # 0.7 10^3/ul Monocytes # 0.1 10^3/ul Eosinophils # 0.0 10^3/ul Basophils # 0.0 10^3/ul Nucleated Red Blood Cells # 0.0 10^3/ul Prothrombin Time 12.0 Sec Prothrombin Time Ratio 0.9 INR International Normalized Ratio 0.88 Sodium Level 140 mmol/L Potassium Level 4.4 mmol/L Chloride Level 100 mmol/L Carbon Dioxide Level 28 mmol/L Anion Gap 12 Blood Urea Nitrogen 10 mg/dl Creatinine 0.66 mg/dl Est Glomerular Filtrat Rate mL/min > 60 mL/min Glucose Level 97 mg/dl Calcium Level 9.9 mg/dl Total Bilirubin 0.4 mg/dl Direct Bilirubin 0.00 mg/dl Indirect Bilirubin 0.4 mg/dl Aspartate Amino Transf (AST/SGOT) 35 IU/L Alanine Aminotransferase (ALT/SGPT) 36 IU/L Alkaline Phosphatase 116 IU/L Total Protein 8.6 g/dl Albumin 5.0 g/dl Globulin 3.60 g/dl Albumin/Globulin Ratio 1.38 Lipase 140 U/L Current Medications Medications Dose Sig/Sharon Start Time Status Last (Trade) Ordered Route PRN Stop Time Admin Dose Reason Admin Ondansetron 4 mg ONCE STAT 01/14/19 DC 01/14/19 HCl (Zofran IV 13:11 13:32 Inj) 01/14/19 13:13 Morphine 4 mg ONCE STAT 01/14/19 DC Sulfate IV 13:11 (morphine) 01/14/19 13:13 Sodium 1,000 ml BOLUS OVER 2 01/14/19 DC 01/14/19 Chloride HOURS STAT 13:11 13:31 (NS) IV* 01/14/19 13:13 Ketorolac 30 mg ONCE STAT 01/14/19 DC 01/14/19 Tromethamine IV 13:53 14:05 (Toradol) 01/14/19 13:59 Procedures/MDM This is a 38-year-old female presents for abdominal pain. She was seen at an outside hospital yesterday for the same symptoms her workup at [facility] as noted above, based on her scan, which I reviewed from the outside hospital they could not completely exclude spontaneous bacterial peritonitis, thus I recommended performing ultrasound guided paracentesis, to assess for this. The patient did not wish to have this procedure done and made the decision to leave this Emergency Department and any ongoing care against the advice of the emergency physician. The patient has been informed of and verbalized understanding of the inherent risks of this decision, including , disability and worsening infection. The patient explained to me the reason for wanting to sign out against medical advice which was she was afraid of having the procedure done. The patient was given alternative therapeutic options including returning to the ED for recheck]. The patient has the capacity to make this decision and accepts the responsibility of leaving at this time. The patient and all necessary parties have been advised that the patient may return at any time for further evaluation or treatment. The patient's condition at time of discharge is sta ble]. EKG: Rate/Rhythm: Normal Sinus Rhythm QRS, ST, T-waves: No changes consistent w/ acute ischemia Impression: No evidence of ischemia or arrhythmia Departure Diagnosis: Primary Impression: Abdominal pain Abdominal location: unspecified location Qualified Codes: R10.9 - Unspecified abdominal pain Condition: Stable NAVYA SKAGGS MD Jan 14, 2019 13:32
[2019-01-14] MEDS ORDERED: KETOROLAC 30 MG INJ IV STA (13:53)
[2019-01-14] MEDS ORDERED: ACET-141 PO (14:11)
[2019-01-14] MEDS ORDERED: IBUP-1542 PO (14:11)
[2019-01-14] MEDS ORDERED: ONDA4TAB13 PO (14:13)
[2019-01-14 15:30] VITALS: BP 119/84; PULSE 68; RESP 20
== END 2019-01-14 15:30 | disposition left against medical advice (07) ==
LOC: E/R 10:59
DX: R10.31 Right lower quadrant pain (principal); R11.0 Nausea; Z85.43 Personal history of malignant neoplasm of ovary
CPT/HCPCS: 36415; 80053; 83690; 85025; 85610; 87400; 93005; 96374; 96375; J1885; J2405; J7030; Z7502; Z7610; J2270

== ENCOUNTER 2019-01-27 12:01 | Emergency (ER) | payer OTHER ==
[~2019-01-27] VITALS: Ht 167.6 cm; Wt 63.9 kg
[~2019-01-27 12:01] MED LIST changes: +ACET-141 PO; -ACET160O41 PO; -ACET500C5 PO; -ASCO500C7 PO; -CEPH-443 PO; -CYAN500T46 PO; -DICY10CA40 PO; +ONDA4TAB13 PO; -RANI150T35 PO; -SUCR1TAB56 PO
[2019-01-27 12:06] VITALS: Ht 167.6 cm; Wt 63.9 kg
--- NOTE | 2019-01-27 13:17 | ERD ---
ER Documentation Chief Complaint Chief Complaint Complans of chest pain since this am HPI This is a 38-year-old female with a past medical history of ovarian cancer status post total abdominal hysterectomy in 2015 with recurrence on chemotherapy since October 2018 who is presenting with 1-2 weeks of left-sided chest wall and breast pain, exacerbated by her chemotherapy sessions. The patient reports that for several days after chemotherapy, the pain gets worse. The patient last received chemotherapy on Thursday and endorses pain since then. The patient describes a moderate waxing and waning burning sensation to her left breast and lower ribs with tenderness to palpation and increased pain on movement and breathing. The patient denies lightheadedness or dizziness. She denies diaphoresis. She has not had nausea or vomiting. The patient feels well otherwise. She has not had any fever or chills. The patient is very anxious in the room. The patient has had no headache or vision changes. The patient does not endorse neck or back pain. The patient denies abdominal pain. The patient denies changes to bowel movements or urination. The patient has had no focal deficits. The patient has had no weakness or numbness or tingling to the face or extremities. ROS All systems reviewed and are negative except as per history of present illness. Medications Home Meds Reported Medications Ondansetron Hcl* (Zofran*) Unknown Strength Tab, 1 TAB PO Q4H PRN for NEEDED, TAB 01/14/19 Acetaminophen* (Acetaminophen*) 500 MG Extra Strength Tablet, 500 MG PO Q6H PRN for NEEDED, TAB 01/14/19 Discontinued Reported Medications Ibuprofen* (Ibuprofen*) 600 Mg Tablet, 600 MG PO Q8 PRN for NEEDED, TAB 01/14/19 Allergies Allergies: Coded Allergies: No Known Allergy (Unverified , 01/27/19) PMhx/Soc History of Surgery: Yes (YAZMIN/BSO 2015) Anesthesia Reaction: No Hx Neurological Disorder: No Hx Respiratory Disorders: No Hx Cardiac Disorders: No Hx Psychiatric Problems: No Hx Miscellaneous Medical Probl: Yes (ovarian cancer) Hx Alcohol Use: No Hx Substance Use: No Hx Tobacco Use: No FmHx Family History: No diabetes Physical Exam Vitals Vital Signs Date Temp Pulse Resp B/P (MAP) Pulse Ox O2 O2 Flow FiO2 Time Delivery Rate 01/27/19 98.6 71 20 129/76 100 12:06 (93) Physical Exam Const: No apparent distress, well-developed, well-nourished Head: Normocephalic, Atraumatic Eyes: Normal Conjunctiva. Extraocular movements intact. Pupils equal, round and reactive to light ENT: Normal External Ears, Nose and Mouth. Neck: Full range of motion. No meningismus. Resp: Clear to auscultation bilaterally, No wheezes, rales or rhonchi Cardio: Regular rate and rhythm. No murmurs, rubs or gallops Chest: Left lower rib tenderness to palpation, pinpoint, reproduces her pain Abd: Soft, non tender, non distended. Normal bowel sounds Skin: No petechiae or rashes Back: No midline tenderness. No CVA tenderness Ext: No cyanosis, or edema Neur: Awake and alert, oriented 4. Cranial nerves intact. No facial droop. Normal strength, sensation and coordination. Psych: Anxious Result Diagram: 01/27/19 1249 01/27/19 1249 Results 24 hrs Laboratory Tests Test 01/27/19 12:49 White Blood Count 3.9 10^3/ul Red Blood Count 3.20 10^6/ul Hemoglobin 10.5 g/dl Hematocrit 31.6 % Mean Corpuscular Volume 98.8 fl Mean Corpuscular Hemoglobin 32.8 pg Mean Corpuscular Hemoglobin Concent 33.2 g/dl Red Cell Distribution Width 14.3 % Platelet Count 261 10^3/UL Mean Platelet Volume 9.3 fl Immature Granulocytes % 0.000 % Neutrophils % 63.5 % Lymphocytes % 28.8 % Monocytes % 5.6 % Eosinophils % 1.8 % Basophils % 0.3 % Nucleated Red Blood Cells % 0.0 /100WBC Immature Granulocytes # 0.000 10^3/ul Neutrophils # 2.5 10^3/ul Lymphocytes # 1.1 10^3/ul Monocytes # 0.2 10^3/ul Eosinophils # 0.1 10^3/ul Basophils # 0.0 10^3/ul Nucleated Red Blood Cells # 0.0 10^3/ul Sodium Level 139 mmol/L Potassium Level 3.9 mmol/L Chloride Level 105 mmol/L Carbon Dioxide Level 27 mmol/L Anion Gap 7 Blood Urea Nitrogen 12 mg/dl Creatinine 0.55 mg/dl Est Glomerular Filtrat Rate mL/min > 60 mL/min Glucose Level 111 mg/dl Calcium Level 9.3 mg/dl Troponin I < 0.012 ng/ml Procedures/[facility] MDM The patient's presentation warrants further investigation. Previous medical records, if available, were reviewed. LABS The patient's laboratory testing was obtained and reviewed. No emergent treatment was required unless described below. CBC: Mild leukopenia, likely related to her chemotherapy, no neutropenia. Mild normocytic anemia, not emergent. No E/o systemic infection or thrombocytopenia Chemistry: No E/o severe acidosis or alkalosis or renal failure or diabetic ketoacidosis Troponin: No E/o acute ischemia EKG EKG read by me: Rate/Rhythm: Regular rate and rhythm at a rate of 65 bpm Intervals: Normal [place]: Normal Impression: No evidence of acute ischemia or arrhythmia IMAGING Imaging and Radiology interpretation reviewed. CXR FINDINGS: The heart and mediastinum are within normal limits. The lungs are clear. There is no pleural effusion or pneumothorax. IMPRESSION: No acute disease. Electronically viewed and signed by Buzz Morataya MD, MD on 01/27/2019 13:15 TREATMENT/DISPOSITION The patient presents with chest wall pain. The patient is very anxious, and anxiousness is certainly a possibility as well. That said, a cardiac workup was completed. The patient's chest xray does not reveal pneumonia or pneumothorax or pleural effusions or pulmonary edema. The patient does not have a widened mediastinum and does not have signs or symptoms concerning for thoracic aortic aneurysm or dissection. The patient does not have pneumomediastinum or signs concerning for esophageal tear or rupture. The patient has no clinical or radiographic signs of pericardial effusion or tamponade. The patient does not have pneumoperitoneum and I have decreased suspicion of viscus perforation as possible referred pain. The patient does not have a history of heart failure and I have low suspicion for this. The patient does not have a diagnosis of COPD and is not wheezing today. The patient is not tachypneic or hypoxic or tachycardic. The patient is breathing comfortably and without pleuritic pain. The patient is not on hormonal therapy. The patient has no history of clotting or bleeding di sorders. The patient has no calf tenderness. The patient has had no hemoptysis. I have decreased suspicion for PE. The patient's troponin and EKG are reassuring. I have low suspicion for acute coronary syndrome. The patient's HEART score is equal to or less than 3. This stratifies the patient into the low risk (<1%) group for an major adverse cardiac event within the next 30 days. Shared decision making was enacted. The risks and benefits of admission and discharge were discussed with the patient and it was ultimately decided that the patient would be discharged with close outpatient follow up and evaluation for functional testing within 72 hours. The patient was treated with a dose of Toradol. DISCHARGE Upon reevaluation of the patient, symptoms have improved. No emergent diagnoses were identified. At this time, I feel that the patient stable for discharge. The patient was instructed to follow-up with a primary care physician in 1-3 days. The patient will be given strict precautions with which to return to the emergency department. Prescriptions: Ibuprofen The patient's blood pressure was elevated at greater than 120/80 while in the emergency department. The patient was otherwise stable with no evidence of hypertensive urgency or emergency. The patient does not require admission for blood pressure control. I have discussed with the patient the risks of hypertension. I have instructed the patient to return to the ER for any new or worsening symptoms including chest pain, shortness of breath, headache, blurred vision, confusion, nausea, vomiting or LOC. I have advised the patient to follow up with the primary care physician for outpatient monitoring and treatment for hypertension in 1-3 days. Disclaimer: Inadvertent spelling and grammatical errors are likely due to EHR/dictation software use and do not reflect on the overall quality of patient care. Note that the electronic time recorded on this note does not necessarily reflect the actual time of the patient encounter. Departure Diagnosis: Primary Impression: Chest wall pain Additional Impressions: Nonspecific chest pain Anxiousness Leukopenia Leukopenia type: unspecified Qualified Codes: D72.819 - Decreased white blood cell count, unspecified Normocytic anemia Condition: Stable Patient Instructions: Chest Wall Strain, Chest Pain, Uncertain Cause Additional Instructions: Thank you for for coming to [facility] for your care today. Please ask your nurse or provider if you have questions about your care today and do not leave until all your questions have been answered. Please use any medications given as directed and follow-up with your doctor (or the doctor you were referred to) in the next 1-3 days. If you do not have a primary care doctor you may follow up at the [facility] [place] [facility] (listed below). You may also use motrin and tylenol as needed for fever and/or pain unless instructed otherwise by your provider or nurse. Indications for more urgent follow-up have been discussed, but you may return to the Emergency Department at ANY time for any worrisome or worsening symptoms. If you have abdominal pain, please know that no test or exam you received is perfect and you should follow up within 8 hours for continued pain. If you had any imaging studies today, such as an X-Ray or CT Scan, these studies will be reviewed later by a radiologist. You will be called if there are important findings that were not identified today, so make sure the contact information you provided at registration is correct. If you received any narcotic pain control medicine today, such as Vicodin, Morphine or Dilaudid, your coordination and judgment may be affected for a number of hours. Please do not drive or operate heavy machinery, and you may want someone to assist you at home. If you were given a prescription for narcotic medication, be aware that it is very addictive- use sparingly and only if necessary. PLEASE SEEK FURTHER EVALUATION AND MANAGEMENT AT YOUR DOCTORS OFFICE WITHIN THE NEXT 1-3 DAYS. IT IS YOUR RESPONSIBILITY TO MAKE AN APPOINTMENT FOR FOLOW-UP CARE. IF YOU HAVE A PRIMARY DOCTOR, PLEASE CALL THEIR OFFICE TO SCHEDULE AN APPOINTM ENT FOR FOLLOW UP. IF YOU DO NOT HAVE A PRIMARY DOCTOR YOU CAN CALL OUR PHYSICIAN REFERRAL HOTLINE AT IF YOU CAN NOT AFFORD TO SEE A PHYSICIAN YOU CAN CHOSE FROM THE FOLLOWING [facility]: [facility] [address] [facility] [address] [facility] [address] [facility] [address] [facility] [address] [facility] [facility]. [address] KAN SCHULTE MD Jan 27, 2019 13:15
[2019-01-27 14:00] VITALS: BP 112/83; PULSE 69; RESP 14
== END 2019-01-27 14:40 | disposition home or self-care (01) ==
LOC: E/R 12:01
DX: D72.819 Decreased white blood cell count, unspecified (principal); R07.89 Other chest pain; D64.9 Anemia, unspecified; F41.9 Anxiety disorder, unspecified; Z85.43 Personal history of malignant neoplasm of ovary
CPT/HCPCS: 36415; 71045; 80048; 84484; 85025; 93005; Z7502

== ENCOUNTER 2019-02-17 10:52 | Emergency (ER) | payer OTHER ==
[~2019-02-17] VITALS: Ht 167.6 cm; Wt 62.9 kg
[~2019-02-17 10:52] MED LIST changes: -IBUP-1542 PO
[2019-02-17 11:02] VITALS: Ht 167.6 cm; Wt 62.9 kg
[2019-02-17] MEDS ORDERED: FLUCONAZOLE 150 MG TAB PO ONE (12:30)
[2019-02-17] MEDS ORDERED: PHENAZOPYRIDINE 100 MG TAB PO ONE (12:30)
[2019-02-17] MEDS ORDERED: ONDANSETRON 4 MG INJ IV STA (12:34)
[2019-02-17] MEDS ORDERED: SOD CHLORIDE 0.9% 1,000 ML IV STA (12:34)
--- NOTE | 2019-02-17 12:53 | ERD ---
ER Documentation Chief Complaint Chief Complaint Complains of abdominal pain x 3 days HPI This is a very pleasant 38-year-old female with a known history of ovarian carcinoma. The patient undergone a total abdominal hysterectomy. The patient indicates she began chemotherapy treatment 2-1/2 years ago. There was a break for several months and she began her chemo 3 months ago. Her last dose of chemotherapy was 2 days prior to arrival. The patient indicates for the past 3 days she has been experiencing frequency urgency and dysuria. She had vaginal pruritus. She denies any hematuria. She denies any weight loss. She has no shortness of breath at rest or exertion. She has had no fevers no shaking no chills. She denies any back pain. She mentioned her symptoms to her oncologist who indicated that she will need to follow-up with her [employer] however the patient stated she will be unable to get an appointment for several weeks therefore she came to the emergency department to be further evaluated. She denies any chest pain. ROS All systems reviewed and are negative except as per history of present illness. Medications Home Meds Reported Medications Ondansetron Hcl* (Zofran*) Unknown Strength Tab, 1 TAB PO Q4H PRN for NEEDED, TAB 01/14/19 Acetaminophen* (Acetaminophen*) 500 MG Extra Strength Tablet, 500 MG PO Q6H PRN for NEEDED, TAB 01/14/19 Allergies Allergies: Coded Allergies: No Known Allergy (Unverified , 02/17/19) PMhx/Soc History of Surgery: Yes (YAZMIN/BSO 2015) Anesthesia Reaction: No Hx Neurological Disorder: No Hx Respiratory Disorders: No Hx Cardiac Disorders: No Hx Psychiatric Problems: No Hx Miscellaneous Medical Probl: Yes (ovarian cancer) Hx Alcohol Use: No Hx Substance Use: No Hx Tobacco Use: No Smoking Status: Never smoker Physical Exam Vitals Vital Signs Date Temp Pulse Resp B/P (MAP) Pulse Ox O2 O2 Flow FiO2 Time Delivery Rate 02/17/19 98.3 69 20 125/80 98 11:02 (95) Physical Exam Constitutional:Well-developed. Well-nourished. HEENT:Normocephalic. Atraumatic.Pupils were equal round reactive to light. Moist mucous membranes.No tonsillar exudates. Neck: No nuchal rigidity. No lymphadenopathy. No posterior cervical spine tenderness or step-offs. Respiratory: Not using accessory muscles of respiration.Lungs were clear to auscultation bilaterally. No rhonchi. No rales. No wheezing. Cardiovascular: Regular rate regular rhythm.No murmurs. No rubs were appreciated.S1, S2 normal. Distal pulses are palpable 2+ bilaterally. GI: Abdomen was soft. Nontender. Non Distended. No pulsatile abdominal masses or bruits. No rebound. No guarding. Bowel sounds were present and normal. : Pelvic exam was performed by myself with female nurse street openings inspector present. There is no endocervical discharge. No adnexal tenderness or adnexal masses. No gross blood present within the vaginal vault Muscle skeletal: Full range of motion of both the upper and lower extremities bilaterally.Normal muscle tone.No assymetrical calf tenderness or swelling. Skin: No petechia, no purpura. No lesions on the palms or the soles of the feet. No maculopapular rash. NEURO: Patient was alert, awake, orientated x3.No facial droop. Gait observed and normal with no ataxia.Speech had regular rate and rhythm. No focal neurological deficits. Results 24 hrs Laboratory Tests Test 02/17/19 11:34 Urine Color RED Urine Clarity SLIGHTLY CLOUDY Urine pH 8.0 Urine Specific [place] 1.009 Urine Ketones NEGATIVE mg/dL Urine Nitrite NEGATIVE mg/dL Urine Bilirubin NEGATIVE mg/dL Urine Urobilinogen NEGATIVE mg/dL Urine Leukocyte Esterase 2+ Marguerite/ul Urine Microscopic RBC 5 /HPF Urine Microscopic WBC 61 /HPF Urine Bacteria FEW /HPF Urine Hemoglobin 1+ mg/dL Urine Glucose NEGATIVE mg/dL Urine Total Protein NEGATIVE mg/dl Current Medications Medications Dose Sig/Sharon Start Time Status Last (Trade) Ordered Route PRN Stop Time Admin Dose Reason Admin 200 mg ONCE ONCE 02/17/19 DC Phenazopyridi PO 12:30 02/17/19 ne HCl 12:31 (Pyridium) Fluconazole 150 mg ONCE ONCE 02/17/19 DC (Diflucan) PO 12:30 02/17/19 12:31 Sodium 1,000 ml @ Q1H STAT 02/17/19 Chloride 1,000 mls/hr IV 12:34 02/17/19 13:33 Ondansetron 4 mg ONCE STAT 02/17/19 DC HCl (Zofran IV 12:34 02/17/19 Inj) 12:35 Procedures/MDM This is a very pleasant 38-year-old female that presented to the emergency department with physical exam findings and history suggestive of urinary tract infection. The patient had pyuria. The patient had IV access was established. She was given a liter bolus of normal saline and was given IV ceftriaxone. Patient was also complaining of vaginal pruritus I did indicate she could have a candidial infection was given Diflucan in the emergency department. She was al so given Pyridium for relief of her frequency urgency dysuria. The patient felt comfortable being discharged home. she will follow-up with her [employer] for further evaluation. Obtain a urine culture. She will be sent home with Keflex . the patient was discharged home in fair condition. They were instructed to return to the emergency department at any time if there was any worsening of their condition. The patient stated they would follow up with their PCP in the next 24-48 hours to initiate a suitable medication regimen under the care of their PCP as well as to allow their PCP to monitor any drug reactions. The patient was discharged home with prescriptions after they gave informed consent to the new medication. They were also fully informed by myself on the adverse effects and adverse drug interactions in order to provide adequate safeguards to prevent possible adverse reactions to medications. Departure Diagnosis: Primary Impression: Urinary tract infection Urinary tract infection type: acute cystitis Hematuria presence: without hematuria Qualified Codes: N30.00 - Acute cystitis without hematuria Condition: MANAV Wen MD February 17, 2019 12:53
[2019-02-17] MEDS ORDERED: CEFTRIAXONE 1 GM/50 ML (PMX) 50 ML IVPB ONE (13:00)
[2019-02-17] MEDS ORDERED: DIME42GE TP (14:48)
[2019-02-17] MEDS ORDERED: CEPH-443 PO (14:48)
[2019-02-17] MEDS ORDERED: traMADol 50 MG TAB PO ONE (15:00)
[2019-02-17 15:40] VITALS: BP 114/84; PULSE 67; RESP 16
[2019-02-17] MEDS ORDERED: ONDA4TAB14 PO (23:19)
[2019-02-17] MEDS ORDERED: IBUP-1542 PO (23:19)
[2019-02-18] MEDS ORDERED: ONDA4TAB14 PO (15:12)
[2019-02-18] MEDS ORDERED: HYDR-3980 PO (15:12)
== END 2019-02-17 15:40 | disposition home or self-care (01) ==
LOC: E/R 10:52
DX: N30.00 Acute cystitis without hematuria (principal); C56.9 Malignant neoplasm of unspecified ovary
CPT/HCPCS: 80053; 81001; 85025; 85610; 85730; 87086; 96361; 96365; J0696; J7030; Z7502; Z7610; J2405

== ENCOUNTER 2019-02-17 20:55 | Emergency (ER) | payer OTHER ==
[~2019-02-17] VITALS: Ht 160 cm; Wt 63.7 kg
[~2019-02-17 20:55] MED LIST changes: +CEPH-443 PO; +DIME42GE TP
[2019-02-17 21:18] VITALS: BP 146/72; PULSE 69; RESP 18; Ht 160 cm; Wt 63.7 kg
[2019-02-17] MEDS ORDERED: KETOROLAC 30 MG INJ IM STA (23:03)
[2019-02-17] MEDS ORDERED: ONDANSETRON (ODT) 4 MG TAB ODT STA (23:03)
[2019-02-17] MEDS ORDERED: IBUP-1542 PO (23:19)
[2019-02-17] MEDS ORDERED: ONDA4TAB14 PO (23:19)
--- NOTE | 2019-02-18 01:03 | ERD ---
ER Documentation Chief Complaint Chief Complaint C/O EL AND NAUSEA SINCE THIS AM HPI Patient is a 38-year-old female with history of ovarian cancer who presents for headache and dizziness. The patient had pain with urination was seen in the emergency department today at 11 AM and was diagnosed with cystitis and dis charged home. She said that she had headache and dizziness at that time and went home and continued to be dizzy and had vomiting. Therefore she came back to the emergency department for reevaluation. She has not called her primary doctor as of yet. Labs were already done today. Brain CT scan was done on August 2018 and was negative. Upon review of old medical records the patient has multiple visits to the ER for various complaints. Her primary doctor is Dr. Luis Alberto Mercado. ROS All systems reviewed and are negative except as per history of present illness. Medications Home Meds Active Scripts Ibuprofen* (Motrin*) 600 Mg Tab, 600 MG PO Q6H PRN for PAIN AND OR ELEVATED TEMP, #30 TAB Prov:BRIANDA DREW MD 02/17/19 Ondansetron (Ondansetron Odt) 4 Mg Tab.rapdis, 4 MG PO Q6H PRN for NAUSEA AND/OR VOMITING, #10 TAB Prov:BRIANDA DREW MD 02/17/19 Dimethicone (Monistat Soothing Care) 42 Gm Gel..gram., 42 GM TP BID, #1 Prov:MANAV IRENE MD 02/17/19 Cephalexin* (Keflex*) 500 Mg Capsule, 500 MG PO QID for 10 Days, CAP Prov:MANAV IRENE MD 02/17/19 Reported Medications Ondansetron Hcl* (Zofran*) Unknown Strength Tab, 1 TAB PO Q4H PRN for NEEDED, TAB 01/14/19 Acetaminophen* (Acetaminophen*) 500 MG Extra Strength Tablet, 500 MG PO Q6H PRN for NEEDED, TAB 01/14/19 Allergies Allergies: Coded Allergies: No Known Allergy (Unverified , 02/17/19) PMhx/Soc History of Surgery: Yes (YAZMIN/BSO 2015) Anesthesia Reaction: No Hx Neurological Disorder: No Hx Respiratory Disorders: No Hx Cardiac Disorders: No Hx Psychiatric Problems: No Hx Miscellaneous Medical Probl: Yes (ovarian cancer) Hx Alcohol Use: No Hx Substance Use: No Hx Tobacco Use: No Smoking Status: Never smoker FmHx Family History: No diabetes Physical Exam Vitals Vital Signs Date Temp Pulse Resp B/P (MAP) Pulse Ox O2 O2 Flow FiO2 Time Delivery Rate 02/17/19 98.1 69 18 146/72 99 21:18 (96) Physical Exam Const: Mild distress Head: Atraumatic Eyes: Normal Conjunctiva ENT: Normal External Ears, Nose and Mouth. Neck: Full range of motion. No meningismus. Resp: Clear to auscultation bilaterally Cardio: Regular rate and rhythm, no murmurs Abd: Soft, non tender, non distended. Normal bowel sounds Skin: No petechiae or rashes Back: No midline or flank tenderness Ext: No cyanosis, or edema Neur: Awake and alert, cranial nerves II through XII are intact, strength is 5 out of 5 in all 4 extremity's, no slurred speech Psych: Normal Mood and Affect Results 24 hrs Current Medications Medications Dose Sig/Sharon Start Time Status Last (Trade) Ordered Route PRN Stop Time Admin Dose Reason Admin Ketorolac 30 mg ONCE STAT 02/17/19 DC 02/17/19 Tromethamine IM 23:03 02/17/19 23:21 (Toradol) 23:04 Ondansetron 4 mg ONCE STAT 02/17/19 DC 02/17/19 HCl (Zofran ODT 23:03 02/17/19 23:20 Odt) 23:04 Procedures/MDM Patient is a 38-year-old female presents with headache and dizziness. I reviewed her visit from today and laboratory studies were normal. Urinalysis did show acute cystitis which I believe may be the cause of her symptoms. Her neurologic is normal I believe the risk of doing another CT scan of the brain outweigh the benefits. She just had a negative CT scan done in August 2018. I doubt stroke, intracranial hemorrhage, or intracranial mass. The patient will be discharged and will need to follow-up with her primary doctor. She is requesting a CT scan of the brain but I told her the risks of radiation outweigh the benefits at this time. She is requesting IV fluids and I do not think she requires these as her vital signs are normal including a normal heart rate. Departure Diagnosis: Primary Impression: Cystitis Additional Impressions: Headache Headache type: unspecified Headache chronicity pattern: acute headache Intractability: not intractable Qualified Codes: R51 - Headache Vomiting Vomiting type: unspecified Vomiting Intractability: non-intractable Nausea presence: with nausea Qualified Codes: R11.2 - Nausea with vomiting, unspecified Condition: Fair Patient Instructions: Self-Care for Headaches, Cystitis, Vomiting (6Y-Adult) Additional Instructions: Call your primary care doctor TOMORROW for an appointment during the next 1-2 days.See the doctor sooner or return here if your condition worsens before your appointment time. BRIANDA DREW MD February 18, 2019 01:03
[2019-02-18] MEDS ORDERED: ONDA4TAB14 PO (15:12)
[2019-02-18] MEDS ORDERED: HYDR-3980 PO (15:12)
== END 2019-02-18 00:12 | disposition home or self-care (01) ==
LOC: E/R 20:55
DX: N30.90 Cystitis, unspecified without hematuria (principal); Z85.43 Personal history of malignant neoplasm of ovary
CPT/HCPCS: 96372; J1885; Z7502; Z7610

== ENCOUNTER 2019-02-18 10:00 | Emergency (ER) | payer OTHER ==
[~2019-02-18] VITALS: Ht 160 cm; Wt 63.0 kg
[~2019-02-18 10:00] MED LIST changes: +IBUP-1542 PO; +ONDA4TAB14 PO
[2019-02-18 10:06] VITALS: Ht 160 cm; Wt 63.0 kg
[2019-02-18] MEDS ORDERED: PROCHLORPERAZINE 10 MG INJ IV STA (12:34)
[2019-02-18] MEDS ORDERED: SOD CHLORIDE 0.9% 1,000 ML IV STA (12:34)
[2019-02-18] MEDS ORDERED: DIPHENHYDRAMINE 50 MG INJ IV STA (12:34)
[2019-02-18] MEDS ORDERED: HYDROmorphONE 1 MG/ML SYG IV STA (12:34)
[2019-02-18] MEDS ORDERED: HYDR-3980 PO (15:12)
[2019-02-18] MEDS ORDERED: ONDA4TAB14 PO (15:12)
--- NOTE | 2019-02-18 15:15 | ERD ---
ER Documentation Chief Complaint Chief Complaint pt is bib family with c/o vomiting, patel, abd pain seen yest for same HX CA HPI This is a 38-year-old female who is here for headache. She states that she was here yesterday got diagnosed with urinary tract infection was sent home she started vomiting. She says she had a headache yesterday and told the doctors but did not do anything about it. She has a headache at the vertex and occipital region that is pounding. She has photophobia no phonophobia and worse with position change. She states she has headaches like this sometimes. She has no fever no neck pain no diarrhea or abdominal pain denies any back pain ROS All systems reviewed and are negative except as per history of present illness. Medications Home Meds Active Scripts Ondansetron (Ondansetron Odt) 4 Mg Tab.rapdis, 4 MG PO Q6H PRN for NAUSEA AND/OR VOMITING, #10 TAB Prov:LYDIA SANTACRUZSTJAYLON A. DO 02/18/19 Hydrocodone/Acetaminophen ([place] 10-325 Tablet) 1 Each Tablet, 1 TAB PO Q6H PRN for PAIN, #16 TAB Prov:LYDIA SANTACRUZSTJAYLON Maddox. DO 02/18/19 Ibuprofen* (Motrin*) 600 Mg Tab, 600 MG PO Q6H PRN for PAIN AND OR ELEVATED TEMP, #30 TAB Prov:BRIANDA DREW MD 02/17/19 Ondansetron (Ondansetron Odt) 4 Mg Tab.rapdis, 4 MG PO Q6H PRN for NAUSEA AND/OR VOMITING, #10 TAB Prov:BRIANDA DREW MD 02/17/19 Dimethicone (Monistat Soothing Care) 42 Gm Gel..gram., 42 GM TP BID, #1 Prov:MANAV IRENE MD 02/17/19 Cephalexin* (Keflex*) 500 Mg Capsule, 500 MG PO QID for 10 Days, CAP Prov:MANAV IRENE MD 02/17/19 Reported Medications Acetaminophen* (Acetaminophen*) 500 MG Extra Strength Tablet, 500 MG PO Q6H PRN for NEEDED, TAB 01/14/19 Discontinued Reported Medications Ondansetron Hcl* (Zofran*) Unknown Strength Tab, 1 TAB PO Q4H PRN for NEEDED, TAB 01/14/19 Allergies Allergies: Coded Allergies: No Known Allergy (Unverified , 02/18/19) PMhx/Soc History of Surgery: Yes (YAZMIN/BSO 2015) Anesthesia Reaction: No Hx Neurological Disorder: No Hx Respiratory Disorders: No Hx Cardiac Disorders: No Hx Psychiatric Problems: No Hx Miscellaneous Medical Probl: Yes (ovarian cancer) Hx Alcohol Use: No Hx Substance Use: No Hx Tobacco Use: No Smoking Status: Unknown if ever smoked FmHx Family History: No coronary disease Physical Exam Vitals Vital Signs Date Temp Pulse Resp B/P (MAP) Pulse Ox O2 O2 Flow FiO2 Time Delivery Rate 02/18/19 79 14 131/82 99 Room Air 14:49 (98) 02/18/19 98.3 65 18 117/66 98 10:06 (83) Physical Exam Const: Well-developed, well-nourished Head: Atraumatic, normocephalic Eyes: Normal Conjunctiva, PERRLA, EOMI, normal sclera, no nystagmus ENT: Normal External Ears, Nose and Mouth, moist mucus membranes. Neck: Full range of motion. No meningismus, no lymphadenopathy. Resp: Clear to auscultation bilaterally, no wheezing, rhonchi, rales Cardio: Regular rate and rhythm, no murmurs, S1 S2 present Abd: Soft, non tender x 4, non distended. Normal bowel sounds, no guarding or rebound, no pulsitile abdominal masses or bruits Skin: No petechiae or rashes, no ecchymosis , no maculopapular rash Back: No midline or flank tenderness Ext: No cyanosis, or edema, FROM x 4, normal inspection, neurovascularly intact x 4 Neur: Awake and alert, STR 5/5 x 4, sensation intact x 4, no focal findings, cerebellum intact Psych: Normal Mood and Affect Result Diagram: 02/18/19 1300 02/18/19 1300 Results 24 hrs Laboratory Tests Test 02/18/19 13:00 02/18/19 13:49 White Blood Count 6.1 10^3/ul Red Blood Count 3.78 10^6/ul Hemoglobin 12.0 g/dl Hematocrit 36.8 % Mean Corpuscular Volume 97.4 fl Mean Corpuscular Hemoglobin 31.7 pg Mean Corpuscular Hemoglobin Concent 32.6 g/dl Red Cell Distribution Width 13.7 % Platelet Count 226 10^3/UL Mean Platelet Volume 9.5 fl Immature Granulocytes % 0.500 % Neutrophils % 73.9 % Lymphocytes % 17.4 % Monocytes % 7.4 % Eosinophils % 0.3 % Basophils % 0.5 % Nucleated Red Blood Cells % 0.0 /100WBC Immature Granulocytes # 0.030 10^3/ul Neutrophils # 4.5 10^3/ul Lymphocytes # 1.1 10^3/ul Monocytes # 0.5 10^3/ul Eosinophils # 0.0 10^3/ul Basophils # 0.0 10^3/ul Nucleated Red Blood Cells # 0.0 10^3/ul Sodium Level 141 mmol/L Potassium Level 4.4 mmol/L Chloride Level 106 mmol/L Carbon Dioxide Level 26 mmol/L Anion Gap 9 Blood Urea Nitrogen 9 mg/dl Creatinine 0.57 mg/dl Est Glomerular Filtrat Rate mL/min > 60 mL/min Glucose Level 106 mg/dl Calcium Level 10.0 mg/dl Total Bilirubin 0.3 mg/dl Direct Bilirubin 0.00 mg/dl Indirect Bilirubin 0.3 mg/dl Aspartate Amino Transf (AST/SGOT) 24 IU/L Alanine Aminotransferase (ALT/SGPT) 28 IU/L Alkaline Phosphatase 92 IU/L Total Protein 7.6 g/dl Albumin 4.2 g/dl Globulin 3.40 g/dl Albumin/Globulin Ratio 1.23 Urine Color STRAW Urine Clarity CLEAR Urine pH 8.0 Urine Specific [place] 1.008 Urine Ketones TRACE mg/dL Urine Nitrite NEGATIVE mg/dL Urine Bilirubin NEGATIVE mg/dL Urine Urobilinogen NEGATIVE mg/dL Urine Leukocyte Esterase TRACE Marguerite/ul Urine Microscopic RBC 0 /HPF Urine Microscopic WBC 7 /HPF Urine Bacteria FEW /HPF Urine Hemoglobin NEGATIVE mg/dL Urine Glucose NEGATIVE mg/dL Urine Total Protein NEGATIVE mg/dl Current Medications Medications Dose Sig/Sharon Start Time Status Last (Trade) Ordered Route PRN Stop Time Admin Dose Reason Admin Sodium 1,000 ml @ Q1H STAT 02/18/19 DC 02/18/19 Chloride 1,000 mls/hr IV 12:34 02/18/19 13:14 13:33 1 mg ONCE STAT 02/18/19 DC 02/18/19 Hydromorphone IV 12:34 02/18/19 13:23 HCl 12:37 (Dilaudid) 10 mg ONCE STAT 02/18/19 DC 02/18/19 Prochlorperaz IV 12:34 02/18/19 13:13 ine 12:37 (Compazine Inj) 25 mg ONCE STAT 02/18/19 DC 02/18/19 Diphenhydrami IV 12:34 02/18/19 13:13 ne HCl 12:37 (Benadryl) Procedures/MDM Patient: EZEKIEL GARCIA : 1980 Age: 38 Sex: F MR #: [id number] DOS: 02/18/19 1234 Ordering MD: ASHWIN SANTACRUZ DO Location: E/R Room/Bed: PROCEDURE: CT brain without contrast CLINICAL INDICATION: Headache TECHNIQUE: CT of the brain without contrast was performed on a multidetector CT scanner, with multiplanar reformats. One or more of the following dose reduction techniques were used: Automated exposure control, adjustment in mA and / or kV according to patient size, use of iterative reconstructive technique. CTDIvol = 39 mGy; DLP = 555 mGy-cm. DICOM images are available. COMPARISON: 09/07/2018 FINDINGS: No acute intracranial hemorrhage is identified. No extra-axial fluid collection is seen. There is no mass effect. No midline shift is identified. The ventricles and sulci are within normal limits for size and configuration. The density of the brain is unremarkable. Purdy-white junctions are preserved. Calvarium and skull base are intact. Mastoid air cells and imaged paranasal sinuses grossly clear. IMPRESSION: Unremarkable noncontrast CT of the brain. RPTAT: VV .Andrez Fonseca MD, MD Date Time Electronically viewed and signed by .Andrez Fonseca MD, MD on 02/18/2019 13:49 .O/ CC: ASHWIN SANTACRUZ DO [id number] Patient says the headache is a 0 out of 10 at 3:15 PM. Feels she has a migraine type of pattern. CT scan is negative blood work looks good and her urinalysis is improving. Told her to stay on her medication Departure Diagnosis: Primary Impression: Migraine Migraine type: without aura Status migrainosus presence: without status migrainosus Intractability: not intractable Qualified Codes: G43.009 - Migraine without aura, not intractable, without status migrainosus Condition: Stable Patient Instructions: Migraine Headache: Stages and Treatment ASHWIN SANTACRUZ DO February 18, 2019 15:15
[2019-02-18 15:34] VITALS: BP 123/85; PULSE 68; RESP 16
== END 2019-02-18 15:37 | disposition home or self-care (01) ==
LOC: E/R 10:00
DX: G43.909 Migraine, unspecified, not intractable, without status migrainosus (principal); Z85.43 Personal history of malignant neoplasm of ovary
CPT/HCPCS: 36415; 70450; 80053; 81001; 85025; 96361; 96374; 96375; J0780; J1170; J1200; J7030; Z7502

== ENCOUNTER 2019-03-01 10:16 | Emergency (ER) | payer OTHER ==
[~2019-03-01] VITALS: Ht 160 cm; Wt 63.8 kg
[~2019-03-01 10:16] MED LIST changes: +HYDR-3980 PO; -ONDA4TAB13 PO
[2019-03-01 10:22] VITALS: Ht 160 cm; Wt 63.8 kg
[2019-03-01] MEDS ORDERED: NITR-58 PO (13:17)
--- NOTE | 2019-03-01 13:17 | ERD ---
ER Documentation Chief Complaint Chief Complaint AP, HAS OVARYAN CA, CHEMO 3 WEEKS AGO, DYSURIA,SEND BY PMD FOR POSSIBLE ADM HPI This is a 38-year-old female with a history of ovarian cancer getting treated with chemotherapy every [address] Gipson. The patient is having dysuria and is also having some trouble with her insurance that she states that her insurance will no longer cover her chemo with Dr. Naranjo and that she is due for it so she is here to get admitted to the hospital for her chemo. She has no abdominal pain no nausea vomiting diarrhea or fever chest pain shortness of breath. ROS All systems reviewed and are negative except as per history of present illness. Medications Home Meds Active Scripts Ondansetron (Ondansetron Odt) 4 Mg Tab.rapdis, 4 MG PO Q6H PRN for NAUSEA AND/OR VOMITING, #10 TAB Prov:ASHWIN SANTACRUZ DO 02/18/19 Hydrocodone/Acetaminophen ([place] 10-325 Tablet) 1 Each Tablet, 1 TAB PO Q6H PRN for PAIN, #16 TAB Prov:ASHWIN SANTACRUZ DO 02/18/19 Ibuprofen* (Motrin*) 600 Mg Tab, 600 MG PO Q6H PRN for PAIN AND OR ELEVATED TEMP, #30 TAB Prov:BRIANDA DREW MD 02/17/19 Dimethicone (Monistat Soothing Care) 42 Gm Gel..gram., 42 GM TP BID, #1 Prov:MANAV IRENE MD 02/17/19 Reported Medications Acetaminophen* (Acetaminophen*) 500 MG Extra Strength Tablet, 500 MG PO Q6H PRN for NEEDED, TAB 01/14/19 Discontinued Scripts Ondansetron (Ondansetron Odt) 4 Mg Tab.rapdis, 4 MG PO Q6H PRN for NAUSEA AND/OR VOMITING, #10 TAB Prov:BRIANDA DREW MD 02/17/19 Cephalexin* (Keflex*) 500 Mg Capsule, 500 MG PO QID for 10 Days, CAP Prov:MANAV IRENE MD 02/17/19 Allergies Allergies: Coded Allergies: No Known Allergy (Unverified , 03/01/19) PMhx/Soc History of Surgery: Yes (YAZMIN/BSO 2015) Anesthesia Reaction: No Hx Neurological Disorder: No Hx Respiratory Disorders: No Hx Cardiac Disorders: No Hx Psychiatric Problems: No Hx Miscellaneous Medical Probl: Yes (ovarian cancer last outpt chemo l4uuccd ago) Hx Alcohol Use: No Hx Substance Use: No Hx Tobacco Use: No Smoking Status: Never smoker FmHx Family History: No coronary disease Physical Exam Vitals Vital Signs Date Temp Pulse Resp B/P (MAP) Pulse Ox O2 O2 Flow FiO2 Time Delivery Rate 03/01/19 97.9 71 18 112/87 100 Room Air 11:11 (95) 03/01/19 97.9 68 18 121/82 99 10:22 (95) Physical Exam Const: Well-developed, well-nourished Head: Atraumatic, normocephalic Eyes: Normal Conjunctiva, PERRLA, EOMI, normal sclera, no nystagmus ENT: Normal External Ears, Nose and Mouth, moist mucus membranes. Neck: Full range of motion. No meningismus, no lymphadenopathy. Resp: Clear to auscultation bilaterally, no wheezing, rhonchi, rales Cardio: Regular rate and rhythm, no murmurs, S1 S2 present Abd: Soft, non tender x 4, non distended. Normal bowel sounds, no guarding or rebound, no pulsitile abdominal masses or bruits Skin: No petechiae or rashes, no ecchymosis , no maculopapular rash Back: No midline or flank tenderness Ext: No cyanosis, or edema, FROM x 4, normal inspection, neurovascularly intact x 4 Neur: Awake and alert, STR 5/5 x 4, sensation intact x 4, no focal findings, cerebellum intact Psych: Normal Mood and Affect Result Diagram: 03/01/19 1115 03/01/19 1115 Results 24 hrs Laboratory Tests Test 03/01/19 11:15 03/01/19 11:28 White Blood Count 6.1 10^3/ul Red Blood Count 4.04 10^6/ul Hemoglobin 12.8 g/dl Hematocrit 40.2 % Mean Corpuscular Volume 99.5 fl Mean Corpuscular Hemoglobin 31.7 pg Mean Corpuscular Hemoglobin Concent 31.8 g/dl Red Cell Distribution Width 13.3 % Platelet Count 206 10^3/UL Mean Platelet Volume 9.6 fl Immature Granulocytes % 0.300 % Neutrophils % 73.0 % Lymphocytes % 18.5 % Monocytes % 6.1 % Eosinophils % 1.8 % Basophils % 0.3 % Nucleated Red Blood Cells % 0.0 /100WBC Immature Granulocytes # 0.020 10^3/ul Neutrophils # 4.4 10^3/ul Lymphocytes # 1.1 10^3/ul Monocytes # 0.4 10^3/ul Eosinophils # 0.1 10^3/ul Basophils # 0.0 10^3/ul Nucleated Red Blood Cells # 0.0 10^3/ul Sodium Level 143 mmol/L Potassium Level 4.3 mmol/L Chloride Level 104 mmol/L Carbon Dioxide Level 31 mmol/L Anion Gap 8 Blood Urea Nitrogen 9 mg/dl Creatinine 0.67 mg/dl Est Glomerular Filtrat Rate mL/min > 60 mL/min Glucose Level 88 mg/dl Calcium Level 9.5 mg/dl Urine Color YELLOW Urine Clarity SLIGHTLY CLOUDY Urine pH 6.0 Urine Specific [place] 1.017 Urine Ketones NEGATIVE mg/dL Urine Nitrite NEGATIVE mg/dL Urine Bilirubin NEGATIVE mg/dL Urine Urobilinogen NEGATIVE mg/dL Urine Leukocyte Esterase 2+ Marguerite/ul Urine Microscopic RBC 2 /HPF Urine Microscopic WBC 103 /HPF Urine Bacteria MODERATE /HPF Urine Mucus MODERATE /HPF Urine Hemoglobin NEGATIVE mg/dL Urine Glucose NEGATIVE mg/dL Urine Total Protein NEGATIVE mg/dl Procedures/MDM Patient has urinary tract infection I did review her last cultures. She was given Keflex I will get another culture and use Macrobid at this time. I spoke with her doctor Dr. Naranjo and he tells me that her insurance is changed to prospect[employer] does not carry prospect anymore I did speak with another oncologist who does take prospect and she will see the patient later this week or next week to give chemo., This is Dr. guevara An extensive discussion at bedside the patient she does not need to get admitted for chemotherapy. That she can wait another 3 days or next week. I did speak with Dr. Naranjo again and they told me to let her go home with antibiotics and to have her call the office to get the chemotherapy situation figured out. Departure Diagnosis: Primary Impression: Urinary tract infection Urinary tract infection type: acute cystitis Hematuria presence: without hematuria Qualified Codes: N30.00 - Acute cystitis without hematuria Condition: Stable ASHWIN SANTACRUZ DO March 01, 2019 13:16
[2019-03-01 13:41] VITALS: BP 122/96; PULSE 70; RESP 18
== END 2019-03-01 13:50 | disposition home or self-care (01) ==
LOC: E/R 10:16
DX: N30.00 Acute cystitis without hematuria (principal); Z85.43 Personal history of malignant neoplasm of ovary
CPT/HCPCS: 36415; 80048; 81001; 85025; 87086; Z7502; 99283

== ENCOUNTER 2019-03-14 10:54 | Emergency (ER) | payer OTHER ==
[~2019-03-14] VITALS: Ht 157.5 cm; Wt 61.7 kg
[~2019-03-14 10:54] MED LIST changes: -CEPH-443 PO; +NITR-58 PO
[2019-03-14 10:56] VITALS: Ht 157.5 cm; Wt 61.7 kg
--- NOTE | 2019-03-14 11:41 | ERD ---
ER Documentation Chief Complaint Chief Complaint AP HPI The patient is a 38-year-old female, presenting to the ER because of suprapubic abdominal pain for 1 day, had similar symptoms previously from acute cystitis, vomited yesterday mostly mucus, denies hematemesis/hematochezia, complains of constipation. She does not smoke nor drink Past medical history: History of ovarian cancer had intermittent chemotherapy for the last 2-1/2 years, recently restarted chemotherapy 3 days ago. Past surgical history: Hysterectomy ROS All systems reviewed and are negative except as per history of present illness. Medications Home Meds Active Scripts Ondansetron (Ondansetron Odt) 4 Mg Tab.rapdis, 4 MG PO Q6H PRN for NAUSEA AND/OR VOMITING, #10 TAB Prov:RONEL ROY MD 03/14/19 Pantoprazole* (Protonix*) 40 Mg Tablet.dr, 40 MG PO DAILY, #20 TAB Prov:RONEL ROY MD 03/14/19 Polyethylene Glycol* (Miralax*) 17 Gm Powd.pack, 17 GM PO DAILY, #7 Prov:RONEL ROY MD 03/14/19 Nitrofurantoin Monohyd Macrocr* (Macrobid*) 100 Mg Capsr, 100 MG PO BID for 14 Days, CAP Prov:ASHWIN SANTACRUZ DO 03/01/19 Ondansetron (Ondansetron Odt) 4 Mg Tab.rapdis, 4 MG PO Q6H PRN for NAUSEA AND/OR VOMITING, #10 TAB Prov:ASHWIN SANTACRUZ DO 02/18/19 Reported Medications Capecitabine* (Xeloda*) 500 Mg Tablet, 1000 MG PO BID, TBS 03/14/19 Discontinued Reported Medications Acetaminophen* (Acetaminophen*) 500 MG Extra Strength Tablet, 500 MG PO Q6H PRN for NEEDED, TAB 01/14/19 Discontinued Scripts Hydrocodone/Acetaminophen (Bimble 10-325 Tablet) 1 Each Tablet, 1 TAB PO Q6H PRN for PAIN, #16 TAB Prov:ASHWIN SANTACRUZ DO 02/18/19 Ibuprofen* (Motrin*) 600 Mg Tab, 600 MG PO Q6H PRN for PAIN AND OR ELEVATED TE MP, #30 TAB Prov:BRIANDA DREW MD 02/17/19 Dimethicone (Monistat Soothing Care) 42 Gm Gel..gram., 42 GM TP BID, #1 Prov:MANAV IRENE MD 02/17/19 Allergies Allergies: Coded Allergies: No Known Allergy (Unverified , 03/14/19) PMhx/Soc History of Surgery: Yes (YAZMIN/BSO 2015) Anesthesia Reaction: No Hx Neurological Disorder: No Hx Respiratory Disorders: No Hx Cardiac Disorders: No Hx Psychiatric Problems: No Hx Miscellaneous Medical Probl: Yes (ovarian cancer last outpt chemo u2ygtvn ago) Hx Alcohol Use: No Hx Substance Use: No Hx Tobacco Use: No Physical Exam Vitals Vital Signs Date Temp Pulse Resp B/P (MAP) Pulse Ox O2 O2 Flow FiO2 Time Delivery Rate 03/14/19 97.5 74 18 123/65 99 10:56 (84) Physical Exam Const: No acute distress. Head: Atraumatic. Eyes: Normal Conjunctiva. ENT: Normal External Ears, Nose and Mouth. Neck: Full range of motion. No meningismus. Resp: Clear to auscultation bilaterally. Cardio: Regular rate and rhythm. Abd: Soft, non distended, normal bowel sounds, mild suprapubic abdominal tenderness, no right lower quadrant/right upper quadrant/epigastric/CVA tenderness. Skin: No petechiae or rashes. Back: No midline or flank tenderness. Ext: No cyanosis, or edema. Neur: Awake and alert. No focal deficit Psych: Normal Mood and Affect. Result Diagram: 03/14/19 1201 03/14/19 1201 Results 24 hrs Laboratory Tests Test 03/14/19 12:01 03/14/19 12:09 03/14/19 12:23 White Blood Count 5.5 10^3/ul Red Blood Count 4.33 10^6/ul Hemoglobin 13.6 g/dl Hematocrit 42.4 % Mean Corpuscular Volume 97.9 fl Mean Corpuscular Hemoglobin 31.4 pg Mean Corpuscular 32.1 g/dl Hemoglobin Concent Red Cell Distribution Width 13.1 % Platelet Count 253 10^3/UL Mean Platelet Volume 9.6 fl Immature Granulocytes % 0.200 % Neutrophils % 64.2 % Lymphocytes % 23.2 % Monocytes % 10.0 % Eosinophils % 2.0 % Basophils % 0.4 % Nucleated Red Blood Cells % 0.0 /100WBC Immature Granulocytes # 0.010 10^3/ul Neutrophils # 3.5 10^3/ul Lymphocytes # 1.3 10^3/ul Monocytes # 0.6 10^3/ul Eosinophils # 0.1 10^3/ul Basophils # 0.0 10^3/ul Nucleated Red Blood Cells # 0.0 10^3/ul Sodium Level 140 mmol/L Potassium Level 4.1 mmol/L Chloride Level 100 mmol/L Carbon Dioxide Level 32 mmol/L Anion Gap 8 Blood Urea Nitrogen 9 mg/dl Creatinine 0.72 mg/dl Est Glomerular Filtrat Rate mL/min > 60 mL/min Glucose Level 98 mg/dl Calcium Level 9.6 mg/dl Total Bilirubin 0.6 mg/dl Direct Bilirubin 0.00 mg/dl Indirect Bilirubin 0.6 mg/dl Aspartate Amino Transf (AST/SGOT) 30 IU/L Alanine 24 IU/L Aminotransferase (ALT/SGPT) Alkaline Phosphatase 91 IU/L Total Protein 8.1 g/dl Albumin 4.5 g/dl Globulin 3.60 g/dl Albumin/Globulin Ratio 1.25 Lipase 87 U/L Bedside Urine pH (LAB) 8.5 Bedside Urine Protein (LAB) 2+ Bedside Urine Glucose (UA) Negative Bedside Urine Ketones (LAB) Negative Bedside Urine Blood Trace-intact Bedside Urine Nitrite (LAB) Negative Bedside Urine Leukocyte Esterase Negative (L POC Beta HCG, Qualitative NEGATIVE Current Medications Medications Dose Sig/Sharon Start Time Status Last (Trade) Ordered Route PRN Stop Time Admin Dose Reason Admin Lactated 1,000 ml @ Q1H STAT 03/14/19 DC 03/14/19 Ringer's 1,000 mls/hr IV 11:48 12:14 03/14/19 12:47 Ondansetron 4 mg ONCE STAT 03/14/19 DC 03/14/19 HCl (Zofran IV 11:48 12:13 Inj) 03/14/19 11:50 Ketorolac 30 mg ONCE STAT 03/14/19 DC 03/14/19 Tromethamine IV 11:48 12:14 (Toradol) 03/14/19 11:50 40 mg ONCE ONCE 03/14/19 03/14/19 Pantoprazole PO 13:30 13:16 (Protonix 03/14/19 13:31 Tab) Procedures/MDM MEDICAL MAKING DECISION: The patient is a 38-year-old female, presenting with ac emilee abdominal pain, most likely related to acute constipation. She was treated with 1 L normal saline for clinical dehydration, Zofran 4 mg IV for nausea, Toradol 30 mg IV for her pain and Protonix 40 mg IV for her epigastric discomfort with good response, is stable for outpatient follow-up The differential diagnoses considered include but are not limited to adhesion, cholelithiasis, cholecystitis, choledocholithiasis, cholangitis, pancreatitis, hepatitis, gastritis, peptic ulcer disease, gastric ulcer, appendicitis, cystitis, diverticulitis, partial small bowel obstruction. Departure Diagnosis: Primary Impression: Abdominal pain Additional Impression: Constipation Condition: Good Comments She was discharged with MiraLAX, Protonix, Zofran ODT I discussed the findings with the patient. I advised the patient to follow-up with the primary physician in about 1-2 days, sooner if needed and return if any concern. Disclaimer: Inadvertent spelling and grammatical errors are likely due to EHR/dictation software use and do not reflect on the overall quality of patient care. Also, please note that the electronic time recorded on this note does not necessarily reflect the actual time of the patient encounter. RONEL ROY MD March 14, 2019 11:41
[2019-03-14] MEDS ORDERED: LACTATED RINGER'S 1,000 ML IV STA (11:48)
[2019-03-14] MEDS ORDERED: ONDANSETRON 4 MG INJ IV STA (11:48)
[2019-03-14] MEDS ORDERED: KETOROLAC 30 MG INJ IV STA (11:48)
[2019-03-14] MEDS ORDERED: CAPE500T17 PO (12:14)
[2019-03-14] MEDS ORDERED: POLY17PO6 PO (13:25)
[2019-03-14] MEDS ORDERED: PANT40TA3 PO (13:25)
[2019-03-14] MEDS ORDERED: ONDA4TAB14 PO (13:25)
[2019-03-14] MEDS ORDERED: PANTOPRAZOLE (EC) 40 MG TAB PO ONE (13:30)
[2019-03-14 13:48] VITALS: BP 117/79; PULSE 65; RESP 18
== END 2019-03-14 13:51 | disposition home or self-care (01) ==
LOC: E/R 10:54
DX: K59.00 Constipation, unspecified (principal); Z85.43 Personal history of malignant neoplasm of ovary
CPT/HCPCS: 36415; 80053; 81003; 81025; 83690; 85025; 96374; 96375; J1885; J2405; J7120; Z7502; Z7610

== ENCOUNTER 2019-04-01 09:31 | Emergency (ER) | payer OTHER ==
[~2019-04-01] VITALS: Ht 157.5 cm; Wt 61.2 kg
[~2019-04-01 09:31] MED LIST changes: -ACET-141 PO; +CAPE500T17 PO; -DIME42GE TP; -HYDR-3980 PO; -IBUP-1542 PO; +PANT40TA3 PO; +POLY17PO6 PO
[2019-04-01 09:33] VITALS: Ht 157.5 cm; Wt 61.2 kg
[2019-04-01] MEDS ORDERED: KETOROLAC 30 MG INJ IV STA (09:43)
[2019-04-01] MEDS ORDERED: LACTATED RINGER'S 1,000 ML IV STA (09:43)
[2019-04-01] MEDS ORDERED: ONDANSETRON 4 MG INJ IV STA (09:43)
[2019-04-01] MEDS ORDERED: ACET-141 PO (10:33)
[2019-04-01] MEDS ORDERED: IBUP-1982 PO (10:33)
[2019-04-01] MEDS ORDERED: NITR-58 PO (10:51)
--- NOTE | 2019-04-01 10:51 | ERD ---
ER Documentation Chief Complaint Chief Complaint right flank pain x 1 week ; hx of ovarian cancer; on chemo HPI This is a 39-year-old female with a history of ovarian cancer and previous urinary tract infections was on chemotherapy who presents to the ER for evaluation of right-sided flank pain for 1 week. The patient also states that she has some painful urination. She states that she was here at the end of February and was diagnosed with a urinary tract infection was discharged home with Bactrim. The patient states that she did take Bactrim for 3 days and then underwent her chemotherapy. She states that she was unable to complete the course of Bactrim due to nausea caused by chemotherapy. The patient states that her pain is a sharp pain in the right flank with mild radiation to the groin associated with mild nausea but no vomiting and no fever chills. Denies any aggravating or relieving factors at this time ROS All systems reviewed and are negative except as per history of present illness. Medications Home Meds Active Scripts Ondansetron (Ondansetron Odt) 4 Mg Tab.rapdis, 4 MG PO Q6H PRN for NAUSEA AND/OR VOMITING, #10 TAB Prov:RONEL ROY MD 03/14/19 Reported Medications Ibuprofen* (Ibuprofen*) 200 Mg Capsule, 200 MG PO NEEDED PRN for PAIN, CAP 04/01/19 Acetaminophen* (Acetaminophen*) 500 MG Extra Strength Tablet, 500 MG PO NEEDED PRN for PAIN AND OR ELEVATED TEMP, TAB 04/01/19 Discontinued Reported Medications Capecitabine* (Xeloda*) 500 Mg Tablet, 1000 MG PO BID, TBS 03/14/19 Discontinued Scripts Pantoprazole* (Protonix*) 40 Mg Tablet.dr, 40 MG PO DAILY, #20 TAB Prov:RONEL ROY MD 03/14/19 Polyethylene Glycol* (Miralax*) 17 Gm Powd.pack, 17 GM PO DAILY, #7 Prov:RONEL ROY MD 03/14/19 Nitrofurantoin Monohyd Macrocr* (Macrobid*) 100 Mg Capsr, 100 MG PO BID for 14 Days, CAP Prov:ASHWIN SANTACRUZ DO 03/01/19 Ondansetron (Ondansetron Odt) 4 Mg Tab.rapdis, 4 MG PO Q6H PRN for NAUSEA AND/OR VOMITING, #10 TAB Prov:ASHWIN SANTACRUZ DO 02/18/19 Allergies Allergies: Coded Allergies: No Known Allergy (Unverified , 04/01/19) PMhx/Soc History of Surgery: Yes (YAZMIN/BSO 2015) Anesthesia Reaction: No Hx Neurological Disorder: No Hx Respiratory Disorders: No Hx Cardiac Disorders: No Hx Psychiatric Problems: No Hx Miscellaneous Medical Probl: Yes (ovarian cancer last outpt chemo 2days ago.) Hx Alcohol Use: No Hx Substance Use: No Hx Tobacco Use: No Smoking Status: Never smoker Physical Exam Vitals Vital Signs Date Temp Pulse Resp B/P (MAP) Pulse Ox O2 O2 Flow FiO2 Time Delivery Rate 04/01/19 97.3 68 18 117/75 100 09:33 (89) Physical Exam INITIAL VITAL SIGNS: Reviewed by me GENERAL: The patient is well developed and appropriate for usual state of health in no apparent distress HEENT: Pupils equal, round, and reactive to light. EOMI. There is no scleral icterus. NECK: C-spine is soft and supple, there is no meningismus. There is no cervical lymphadenopathy. LUNGS: Clear to auscultation bilaterally. There are no rales, wheezes or rhonchi. HEART: Regular rate and rhythm, no murmurs, clicks, rubs or gallops. ABDOMEN: Mild right-sided CVAT, otherwise soft, non-tender, non-distended. There are bowel sounds in all four quadrants. No rebound or guarding. EXTREMITIES: There is no peripheral cyanosis or edema. No focal swelling or erythema. NEUROLOGICAL: The patient moves all four extremities with 5/5 strength. Cranial nerves II - XII are intact. Normal gait. Alert and oriented SKIN: There is no apparent rash or petechiae. HEME/LYMPHATIC: There is no evidence of excessive bruising or lymphedema. PSYCHIATRIC: The patient does not appear anxious or depressed. Result Diagram: 04/01/19 1005 04/01/19 1005 Results 24 hrs Laboratory Tests Test 04/01/19 10:05 White Blood Count 2.6 10^3/ul Red Blood Count 3.90 10^6/ul Hemoglobin 12.4 g/dl Hematocrit 38.5 % Mean Corpuscular Volume 98.7 fl Mean Corpuscular Hemoglobin 31.8 pg Mean Corpuscular Hemoglobin Concent 32.2 g/dl Red Cell Distribution Width 14.3 % Platelet Count 242 10^3/UL Mean Platelet Volume 8.9 fl Immature Granulocytes % 0.000 % Neutrophils % 49.4 % Lymphocytes % 35.0 % Monocytes % 12.5 % Eosinophils % 2.3 % Basophils % 0.8 % Nucleated Red Blood Cells % 0.0 /100WBC Immature Granulocytes # 0.000 10^3/ul Neutrophils # 1.3 10^3/ul Lymphocytes # 0.9 10^3/ul Monocytes # 0.3 10^3/ul Eosinophils # 0.1 10^3/ul Basophils # 0.0 10^3/ul Nucleated Red Blood Cells # 0.0 10^3/ul Urine Color YELLOW Urine Clarity SLIGHTLY CLOUDY Urine pH 6.0 Urine Specific [place] 1.017 Urine Ketones NEGATIVE mg/dL Urine Nitrite NEGATIVE mg/dL Urine Bilirubin NEGATIVE mg/dL Urine Urobilinogen NEGATIVE mg/dL Urine Leukocyte Esterase 1+ Marguerite/ul Urine Microscopic RBC 4 /HPF Urine Microscopic WBC 60 /HPF Urine Bacteria FEW /HPF Urine Mucus MODERATE /HPF Urine Hemoglobin NEGATIVE mg/dL Urine Glucose NEGATIVE mg/dL Urine Total Protein NEGATIVE mg/dl Sodium Level 142 mmol/L Potassium Level 3.9 mmol/L Chloride Level 104 mmol/L Carbon Dioxide Level 28 mmol/L Anion Gap 10 Blood Urea Nitrogen 7 mg/dl Creatinine 0.64 mg/dl Est Glomerular Filtrat Rate mL/min > 60 mL/min Glucose Level 107 mg/dl Calcium Level 9.7 mg/dl Total Bilirubin 0.4 mg/dl Direct Bilirubin 0.00 mg/dl Indirect Bilirubin 0.4 mg/dl Aspartate Amino Transf (AST/SGOT) 25 IU/L Alanine Aminotransferase (ALT/SGPT) 20 IU/L Alkaline Phosphatase 76 IU/L Total Protein 7.7 g/dl Albumin 4.3 g/dl Globulin 3.40 g/dl Albumin/Globulin Ratio 1.26 Lipase 101 U/L Current Medications Medications Dose Sig/Sharon Start Time Status Last (Trade) Ordered Route PRN Stop Time Admin Dose Reason Admin Lactated 1,000 ml @ Q1H STAT 04/01/19 DC 04/01/19 Ringer's 1,000 mls/hr IV 09:43 10:16 04/01/19 10:42 Ondansetron 4 mg ONCE STAT 04/01/19 DC 04/01/19 HCl (Zofran IV 09:43 10:16 Inj) 04/01/19 09:44 Ketorolac 30 mg ONCE STAT 04/01/19 DC 04/01/19 Tromethamine IV 09:43 10:17 (Toradol) 04/01/19 09:44 Ceftriaxone 50 ml @ ONCE ONCE 04/01/19 Sodium 100 mls/hr IVPB 11:00 04/01/19 11:29 Procedures/MDM This 39-year-old female presents to the ER for evaluation of right-sided flank pain. She does have a history of ovarian cancer and is on chemotherapy and is being followed by oncology. On my evaluation the patient is afebrile and nontoxic-appearing and hemodynamically stable. She did have some right-sided flank pain. Lab work was obtained and does not show a significant leukocytosis. She has no left shift. The patient's urinalysis does show white blood cells in the urine and she did not complete her course of antibiotics. I do have a urine cultures with sensitivity to Macrobid and the patient will be discharged home with a prescription for Macrobid 100 mg for the X 10 days. The patient was advised to complete her course of antibiotics as not completing courses of antibiotics will worsen her symptoms and can cause antibiotic resistance. She verbalized understanding and is okay to plan of care. She was given IV fluids, Rocephin and Toradol in the ER. Departure Diagnosis: Primary Impression: Flank pain Additional Impressions: Cystitis Ovarian cancer Condition: HAIR Lema DO Apr 01, 2019 10:51
[2019-04-01] MEDS ORDERED: ACET1TAB40 PO (10:52)
[2019-04-01] MEDS ORDERED: CEFTRIAXONE 1 GM/50 ML (PMX) 50 ML IVPB ONE (11:00)
[2019-04-01 11:18] VITALS: BP 124/86; PULSE 78; RESP 20
== END 2019-04-01 11:21 | disposition home or self-care (01) ==
LOC: E/R 09:31
DX: N30.90 Cystitis, unspecified without hematuria (principal); C56.9 Malignant neoplasm of unspecified ovary
CPT/HCPCS: 36415; 71045; 80053; 81001; 83690; 85025; 96361; 96365; 96375; J1885; J2405; J7120; Z7502; Z7610

== ENCOUNTER 2019-06-07 09:53 | Emergency (ER) | payer OTHER ==
[~2019-06-07] VITALS: Ht 152.4 cm; Wt 62.6 kg
[~2019-06-07 09:53] MED LIST changes: +ACET-141 PO; +ACET1TAB40 PO; +ACET500C5 PO; -CAPE500T17 PO; +DICY10CA40 PO; +HYDR-4011 PO; +IBUP-1542 PO; +IBUP-1982 PO; -PANT40TA3 PO; -POLY17PO6 PO; +TRAM50TA PO
[2019-06-07 09:57] VITALS: BP 188/68; PULSE 71; RESP 18; Ht 152.4 cm; Wt 62.6 kg
[2019-06-07] MEDS ORDERED: SOD CHLORIDE 0.9% 1,000 ML IV STA (10:20)
[2019-06-07] MEDS ORDERED: KETOROLAC 15 MG INJ IV STA (11:20)
[2019-06-07] MEDS ORDERED: SOD CHLORIDE 0.9% 100 ML ONE (11:50)
[2019-06-07] MEDS ORDERED: IOHEXOL 300MG/ML 150 ML BTL ONE (11:50)
== END 2019-06-07 12:59 | disposition home or self-care (01) ==
LOC: FTE 09:53
DX: R10.9 Unspecified abdominal pain (principal); R18.8 Other ascites; C56.9 Malignant neoplasm of unspecified ovary
CPT/HCPCS: 36415; 74177; 80053; 81001; 81025; 83690; 85025; 96361; 96374; J1885; J7030; Q9967; Z7502; Z7610

== ENCOUNTER 2019-06-24 09:04 | Emergency (ER) | payer OTHER ==
[~2019-06-24] VITALS: Ht 160 cm; Wt 57.5 kg
[~2019-06-24 09:04] MED LIST changes: -HYDR-4011 PO
[2019-06-24 09:15] VITALS: Ht 160 cm; Wt 57.5 kg
[2019-06-24] MEDS ORDERED: LIDOCAINE/MYLANTA 40 ML BTL PO STA (10:07)
[2019-06-24] MEDS ORDERED: ONDANSETRON (ODT) 4 MG TAB ODT STA (10:07)
[2019-06-24] MEDS ORDERED: FAMOTIDINE 20 MG TAB PO STA (10:07)
[2019-06-24] MEDS ORDERED: BELLADONNA/PHENOBARBITAL TAB PO STA (10:07)
[2019-06-24] MEDS ORDERED: DICYCLOMINE 20 MG INJ IM ONE (10:30)
[2019-06-24] MEDS ORDERED: LIDOCAINE 1% (MPF) 5 ML VIAL ONE (12:23)
[2019-06-24] MEDS ORDERED: KETOROLAC 15 MG INJ IV STA (12:35)
[2019-06-24 13:30] VITALS: BP 108/78; PULSE 66; RESP 16
== END 2019-06-24 16:13 | disposition home or self-care (01) ==
LOC: E/R 09:04
DX: D47.3 Essential (hemorrhagic) thrombocythemia (principal); R18.0 Malignant ascites; R10.13 Epigastric pain; D53.9 Nutritional anemia, unspecified; C56.9 Malignant neoplasm of unspecified ovary
CPT/HCPCS: 80048; 83605; 85025; 85049; 85610; 85670; 85730; 87070; 87075; 87102; 87116; 89051; 96372; 96374; J0500; J1885; Z7502; Z7610; 88104; 88305

== ENCOUNTER 2019-07-15 09:13 | Emergency (ER) | payer OTHER ==
[~2019-07-15] VITALS: Ht 157.5 cm; Wt 56.8 kg
[~2019-07-15 09:13] MED LIST changes: -ACET-141 PO; -ACET1TAB40 PO; -ACET500C5 PO; -DICY10CA40 PO; +FAMO-96 PO; +HYOS0.1297 PO; -IBUP-1982 PO; -NITR-58 PO; +RIFA550T4 PO; +SIME1LIQ MC; +SUCR1TAB56 PO; -TRAM50TA PO
[2019-07-15 09:23] VITALS: Ht 157.5 cm; Wt 56.8 kg
[2019-07-15] MEDS ORDERED: D5W-0.45 NACL + KCL 20 MEQ 1,000 ML IV STA (10:28)
[2019-07-15] MEDS ORDERED: ONDANSETRON 4 MG INJ ONE (10:35)
[2019-07-15] MEDS ORDERED: KETOROLAC 15 MG INJ IM STA (11:11)
[2019-07-15] MEDS ORDERED: ONDANSETRON 4 MG INJ IV STA (11:11)
[2019-07-15] MEDS ORDERED: FAMOTIDINE 20 MG INJ IV ONE (11:30)
[2019-07-15 12:51] VITALS: BP 118/67; PULSE 76; RESP 20
== END 2019-07-15 12:59 | disposition home or self-care (01) ==
LOC: E/R 09:13
DX: R11.10 Vomiting, unspecified (principal); Z85.43 Personal history of malignant neoplasm of ovary
CPT/HCPCS: 36415; 80053; 81001; 83690; 83735; 84100; 85025; 96372; 96374; 96375; J1885; J2405; J3480; Z7502; Z7610

== ENCOUNTER 2019-08-08 10:08 | Inpatient (IN) | payer OTHER ==
[~2019-08-08] VITALS: Ht 157.5 cm; Wt 53.0 kg
[2019-08-08] MEDS ORDERED: ONDANSETRON 4 MG INJ IV STA (11:22)
[2019-08-08] MEDS ORDERED: morphine 4 MG/ML VIAL IV STA (11:22)
[2019-08-08] MEDS ORDERED: SOD CHLORIDE 0.9% 1,000 ML IV STA (11:22)
[2019-08-08] MEDS ORDERED: HYDROmorphONE 0.5 MG/0.5 ML SYG IV STA (11:34)
[2019-08-08] MEDS ORDERED: ONDANSETRON 4 MG INJ IV PRN (13:00)
[2019-08-08] MEDS ORDERED: ACETAMINOPHEN 325 MG TAB PO PRN (13:00)
[2019-08-08 15:15] VITALS: BP 128/91; PULSE 83; RESP 16
[2019-08-08] MEDS: D5W-0.45 NACL + KCL 20 MEQ 1,000 ML IV SCH (15:21)
[2019-08-08 17:56] VITALS: Ht 157.5 cm; Wt 53.0 kg
[2019-08-08] MEDS ORDERED: BARIUM SULF 2% 450 ML BTL (BERRY SMOOTHIE) PO ONE (18:30)
[2019-08-08 19:51] VITALS: BP 129/93; PULSE 88; RESP 19
[2019-08-08] MEDS ORDERED: IOHEXOL 14.3 MG(I)/ML (ADULT) BTL PO ONE (20:30)
[2019-08-08] MEDS: FAMOTIDINE 20 MG INJ IV SCH (21:35)
[2019-08-08] MEDS: HYDROmorphONE 0.5 MG/0.5 ML SYG IV PRN (22:47)
[2019-08-09] MEDS: D5W-0.45 NACL + KCL 20 MEQ 1,000 ML IV SCH ×3 (03:27→19:49)
[2019-08-09] MEDS: HYDROmorphONE 0.5 MG/0.5 ML SYG IV PRN ×2 (03:30→23:30)
[2019-08-09] MEDS ORDERED: KETOROLAC 30 MG INJ IV PRN (04:00)
[2019-08-09 07:31] VITALS: BP 111/76; PULSE 85; RESP 18
[2019-08-09] MEDS: ENOXAPARIN 30 MG/0.3 ML SYG SC SCH (08:27)
[2019-08-09] MEDS: FAMOTIDINE 20 MG INJ IV SCH ×2 (08:28→20:24)
[2019-08-09] MEDS: KETOROLAC 30 MG INJ IV PRN ×2 (10:38→19:45)
[2019-08-09 14:58] VITALS: BP 111/79; PULSE 79; RESP 18
[2019-08-09 19:34] VITALS: BP_SYST 118; BP_SYST 120; BP_DIAS 66; BP_DIAS 84; PULSE 78; PULSE 91; RESP 18
[2019-08-09] MEDS: ONDANSETRON 4 MG INJ IV PRN (20:24)
[2019-08-09] MEDS: DOCUSATE SODIUM 100 MG CAP PO SCH (21:00)
[2019-08-10 01:53] VITALS: BP 113/77; PULSE 93; RESP 18
[2019-08-10] MEDS: D5W-0.45 NACL + KCL 20 MEQ 1,000 ML IV SCH ×2 (05:18→15:49)
[2019-08-10 07:14] VITALS: BP 109/78; PULSE 91; RESP 20
[2019-08-10] MEDS: FAMOTIDINE 20 MG INJ IV SCH ×2 (08:17→20:10)
[2019-08-10] MEDS: HYDROmorphONE 0.5 MG/0.5 ML SYG IV PRN ×3 (08:17→22:08)
[2019-08-10] MEDS: DOCUSATE SODIUM 100 MG CAP PO SCH ×2 (09:00→20:16)
[2019-08-10] MEDS: ENOXAPARIN 30 MG/0.3 ML SYG SC SCH (09:00)
[2019-08-10 15:18] VITALS: BP 135/89; PULSE 94; RESP 20
[2019-08-10 19:44] VITALS: BP 118/80; PULSE 78; RESP 20
[2019-08-11] MEDS: D5W-0.45 NACL + KCL 20 MEQ 1,000 ML IV SCH ×2 (01:41→14:42)
[2019-08-11 02:09] VITALS: BP 108/74; PULSE 81; RESP 18
[2019-08-11] MEDS: KETOROLAC 30 MG INJ IV PRN ×2 (06:06→14:49)
[2019-08-11 07:45] VITALS: BP 117/79; PULSE 77; RESP 18
[2019-08-11] MEDS: FAMOTIDINE 20 MG INJ IV SCH (08:49)
[2019-08-11] MEDS: DOCUSATE SODIUM 100 MG CAP PO SCH ×2 (08:52→21:00)
[2019-08-11] MEDS: ENOXAPARIN 30 MG/0.3 ML SYG SC SCH (08:53)
[2019-08-11 15:34] VITALS: BP 119/82; PULSE 86; RESP 18
[2019-08-11] MEDS: PANTOPRAZOLE 40 MG INJ IV SCH (17:42)
[2019-08-11 19:15] VITALS: BP 127/88; PULSE 88; RESP 20
[2019-08-11] MEDS: HYDROmorphONE 0.5 MG/0.5 ML SYG IV PRN (19:35)
[2019-08-12] MEDS: D5W-0.45 NACL + KCL 20 MEQ 1,000 ML IV SCH ×3 (00:26→17:52)
[2019-08-12] MEDS: HYDROmorphONE 0.5 MG/0.5 ML SYG IV PRN ×3 (04:38→19:08)
[2019-08-12] MEDS: PANTOPRAZOLE 40 MG INJ IV SCH ×2 (04:44→17:50)
[2019-08-12 07:20] VITALS: BP 121/78; PULSE 82; RESP 19
[2019-08-12] MEDS: ENOXAPARIN 30 MG/0.3 ML SYG SC SCH (07:54)
[2019-08-12] MEDS: DOCUSATE SODIUM 100 MG CAP PO SCH ×2 (07:54→20:23)
[2019-08-12 14:42] VITALS: BP 118/72; PULSE 78; RESP 20
[2019-08-12] MEDS ORDERED: morphine 4 MG/ML VIAL IV PRN (16:30)
[2019-08-12] MEDS ORDERED: *CONTINUE SAME TPN IV ONE (16:30)
[2019-08-12 19:40] VITALS: BP 127/88; PULSE 83; RESP 20
[2019-08-12] MEDS: ONDANSETRON 4 MG INJ IV PRN (19:54)
[2019-08-12] MEDS: ACETAMINOPHEN 650 MG SUPP PR PRN (23:15)
[2019-08-13 02:15] VITALS: BP 131/81; PULSE 80; RESP 20
[2019-08-13] MEDS: D5W-0.45 NACL + KCL 20 MEQ 1,000 ML IV SCH ×2 (04:33→06:20)
[2019-08-13] MEDS: PANTOPRAZOLE 40 MG INJ IV SCH ×2 (05:20→17:47)
[2019-08-13] MEDS: HYDROmorphONE 0.5 MG/0.5 ML SYG IV PRN ×3 (06:53→21:34)
[2019-08-13] MEDS: ONDANSETRON 4 MG INJ IV PRN ×2 (06:53→13:19)
[2019-08-13 08:00] VITALS: BP 125/84; PULSE 76; RESP 18
[2019-08-13] MEDS: DOCUSATE SODIUM 100 MG CAP PO SCH ×2 (10:36→21:00)
[2019-08-13] MEDS: ENOXAPARIN 30 MG/0.3 ML SYG SC SCH (10:48)
[2019-08-13] MEDS: TPN 1,000 ML IV SCH (14:47)
[2019-08-13 15:00] VITALS: BP 127/80; PULSE 77; RESP 18
[2019-08-13] MEDS: LORATADINE/PSEUDOEPHED (SR) TAB PO SCH ×2 (15:00→21:00)
[2019-08-13] MEDS: ACCU-CHEK XX SCH ×2 (15:03→21:00)
[2019-08-13 19:30] VITALS: BP 138/96; PULSE 88; RESP 20
[2019-08-14 02:20] VITALS: BP 131/86; PULSE 87; RESP 20
[2019-08-14] MEDS: HYDROmorphONE 0.5 MG/0.5 ML SYG IV PRN ×4 (02:42→21:45)
[2019-08-14] MEDS: ACCU-CHEK XX SCH ×3 (02:48→21:45)
[2019-08-14] MEDS: PANTOPRAZOLE 40 MG INJ IV SCH ×2 (05:31→18:15)
[2019-08-14 07:34] VITALS: BP 136/84; PULSE 86; RESP 18
[2019-08-14] MEDS: LORATADINE/PSEUDOEPHED (SR) TAB PO SCH ×2 (08:47→21:00)
[2019-08-14] MEDS: DOCUSATE SODIUM 100 MG CAP PO SCH ×2 (08:48→21:00)
[2019-08-14] MEDS: ENOXAPARIN 30 MG/0.3 ML SYG SC SCH (09:04)
[2019-08-14] MEDS: ACETAMINOPHEN 650 MG SUPP PR PRN (10:14)
[2019-08-14] MEDS: TPN 1,000 ML IV SCH (10:45)
[2019-08-14] MEDS ORDERED: CEPASTAT LOZENGE MT PRN (15:30)
[2019-08-14] MEDS: ONDANSETRON 4 MG INJ IV PRN (16:51)
[2019-08-14 17:17] VITALS: BP 124/75; PULSE 92; RESP 20
[2019-08-14 20:33] VITALS: BP 122/81; PULSE 97; RESP 16
[2019-08-15 01:41] VITALS: BP 121/80; PULSE 85; RESP 16
[2019-08-15] MEDS: HYDROmorphONE 0.5 MG/0.5 ML SYG IV PRN ×3 (03:01→20:21)
[2019-08-15] MEDS: TPN 1,000 ML IV SCH ×2 (03:08→17:24)
[2019-08-15] MEDS: PANTOPRAZOLE 40 MG INJ IV SCH ×2 (05:32→17:35)
[2019-08-15 07:29] VITALS: BP 126/82; PULSE 78; RESP 18
[2019-08-15] MEDS: LORATADINE/PSEUDOEPHED (SR) TAB PO SCH ×2 (08:44→20:27)
[2019-08-15] MEDS: ACCU-CHEK XX SCH ×2 (08:44→20:26)
[2019-08-15] MEDS: DOCUSATE SODIUM 100 MG CAP PO SCH ×2 (08:44→20:27)
[2019-08-15] MEDS: ENOXAPARIN 30 MG/0.3 ML SYG SC SCH (09:27)
[2019-08-15] MEDS ORDERED: SODIUM PHOSPHATE 30 MMOL in SOD CHLORIDE 0.9% 250 ML IV ONE (12:30)
[2019-08-15] MEDS: KETOROLAC 30 MG INJ IV PRN (12:55)
[2019-08-15] MEDS ORDERED: MENTHOL/METH SALICYLATE OINT TOP PRN (13:00)
[2019-08-15 13:09] VITALS: BP 118/80; PULSE 95; RESP 20
[2019-08-15] MEDS ORDERED: FAT EMULSION 20% 250 ML IV SCH (16:00)
[2019-08-15] MEDS: FAT EMULSION 20% 250 ML IV SCH (17:26)
[2019-08-15 20:40] VITALS: BP 116/78; PULSE 108; RESP 19
[2019-08-16] MEDS: KETOROLAC 30 MG INJ IV PRN (00:29)
[2019-08-16 02:55] VITALS: BP 105/65; PULSE 92; RESP 19
[2019-08-16] MEDS: PANTOPRAZOLE 40 MG INJ IV SCH ×2 (04:34→17:11)
[2019-08-16] MEDS: HYDROmorphONE 0.5 MG/0.5 ML SYG IV PRN ×5 (05:24→23:44)
[2019-08-16] MEDS: TPN 1,000 ML IV SCH ×3 (06:13→22:43)
[2019-08-16] MEDS: LORATADINE/PSEUDOEPHED (SR) TAB PO SCH ×2 (08:08→20:26)
[2019-08-16] MEDS: DOCUSATE SODIUM 100 MG CAP PO SCH ×2 (08:08→20:26)
[2019-08-16 08:19] VITALS: BP 120/73; PULSE 102; RESP 18
[2019-08-16] MEDS ORDERED: HYDROmorphONE 0.2 MG/ML PCA IV SCH (08:30)
[2019-08-16] MEDS: ACCU-CHEK XX SCH ×2 (09:00→20:56)
[2019-08-16] MEDS ORDERED: HYDROmorphONE 0.5 MG/0.5 ML SYG IV PRN (10:30)
[2019-08-16] MEDS ORDERED: HYDROmorphONE 50 MG in DEXTROSE 5% 45 ML IVPB SCH (10:30)
[2019-08-16] MEDS: METHYLNALTREXONE 12 MG/0.6 ML VIAL SC SCH (11:06)
[2019-08-16 14:36] VITALS: BP 135/81; PULSE 101; RESP 20
[2019-08-16 16:45] VITALS: PULSE 78
[2019-08-16] MEDS: FAT EMULSION 20% 250 ML IV SCH (17:11)
[2019-08-16 19:28] VITALS: BP 135/72; PULSE 68; RESP 14
[2019-08-16] MEDS: MENTHOL/METH SALICYLATE OINT TOP PRN (20:57)
[2019-08-16] MEDS: ONDANSETRON 4 MG INJ IV PRN (22:29)
[2019-08-17 01:25] VITALS: BP 117/78; PULSE 103; RESP 14
[2019-08-17] MEDS: HYDROmorphONE 0.5 MG/0.5 ML SYG IV PRN ×5 (03:45→21:36)
[2019-08-17] MEDS: PANTOPRAZOLE 40 MG INJ IV SCH ×2 (06:07→18:10)
[2019-08-17 07:53] VITALS: BP 117/72; PULSE 97; RESP 17
[2019-08-17] MEDS: DOCUSATE SODIUM 100 MG CAP PO SCH ×2 (08:20→21:42)
[2019-08-17] MEDS: ACCU-CHEK XX SCH ×2 (08:21→20:59)
[2019-08-17] MEDS: METHYLNALTREXONE 12 MG/0.6 ML VIAL SC SCH (09:00)
[2019-08-17] MEDS: LORATADINE/PSEUDOEPHED (SR) TAB PO SCH ×2 (09:00→20:59)
[2019-08-17] MEDS ORDERED: SODIUM PHOSPHATE 15 MMOL in SOD CHLORIDE 0.9% 250 ML IVPB ONE (10:30)
[2019-08-17] MEDS: ONDANSETRON 4 MG INJ IV PRN ×2 (12:16→21:47)
[2019-08-17] MEDS: TPN 1,000 ML IV SCH (14:03)
[2019-08-17 14:39] VITALS: BP 120/75; PULSE 110; RESP 17
[2019-08-17] MEDS: FAT EMULSION 20% 250 ML IV SCH (16:12)
[2019-08-17 20:37] VITALS: BP 124/81; PULSE 101; RESP 18
[2019-08-18] VITALS (13 sets, daily range): BP systolic 118–133; BP diastolic 69–88; PULSE 92–121; RESP 16–30
[2019-08-18] MEDS: KETOROLAC 30 MG INJ IV PRN ×2 (00:21→06:17)
[2019-08-18] MEDS: MENTHOL/METH SALICYLATE OINT TOP PRN (00:22)
[2019-08-18] MEDS: HYDROmorphONE 0.5 MG/0.5 ML SYG IV PRN ×5 (03:24→23:24)
[2019-08-18] MEDS: TPN 1,000 ML IV SCH (05:35)
[2019-08-18] MEDS: PANTOPRAZOLE 40 MG INJ IV SCH ×2 (06:09→18:33)
[2019-08-18] MEDS: DOCUSATE SODIUM 100 MG CAP PO SCH ×2 (08:20→20:32)
[2019-08-18] MEDS: LORATADINE/PSEUDOEPHED (SR) TAB PO SCH ×2 (08:21→20:32)
[2019-08-18] MEDS: METHYLNALTREXONE 12 MG/0.6 ML VIAL SC SCH (08:27)
[2019-08-18] MEDS: ACCU-CHEK XX SCH ×2 (09:59→20:40)
[2019-08-18] MEDS ORDERED: SOD CHLORIDE 0.9% 500 ML IV ONE (11:30)
[2019-08-18] MEDS: FAT EMULSION 20% 250 ML IV SCH (16:50)
[2019-08-18] MEDS: ONDANSETRON 4 MG INJ IV PRN (16:51)
[2019-08-18] MEDS: SOD CHLORIDE 0.9% 1,000 ML IV SCH (18:34)
[2019-08-19] VITALS (14 sets, daily range): BP systolic 60–186; BP diastolic 28–97; PULSE 88–135; RESP 18–24
[2019-08-19] MEDS ORDERED: NITROGLYCERIN AEROSOL (4.9 GM) ONE
[2019-08-19] MEDS ORDERED: ROCURONIUM 50 MG INJ ONE
[2019-08-19] MEDS ORDERED: ETOMIDATE 20 MG INJ ONE
[2019-08-19] MEDS ORDERED: NALOXONE 2 MG SYG ONE
[2019-08-19] MEDS: HYDROmorphONE 0.5 MG/0.5 ML SYG IV PRN (03:29)
[2019-08-19] MEDS: ONDANSETRON 4 MG INJ IV PRN (04:38)
[2019-08-19] MEDS ORDERED: HYDROmorphONE 0.5 MG/0.5 ML SYG IV ONE (04:54)
[2019-08-19] MEDS ORDERED: LORAZEPAM 2 MG INJ ONE (05:03)
[2019-08-19] MEDS: SOD CHLORIDE 0.9% 1,000 ML IV SCH (05:05)
[2019-08-19] MEDS ORDERED: LORAZEPAM 2 MG INJ IV ONE (05:05)
[2019-08-19] MEDS ORDERED: NA BICARBONATE 8.4% 50 ML SYG IV ONE ×2 (06:00→06:30)
[2019-08-19] MEDS ORDERED: SODIUM BICARBONATE (IV ADD) 100 MEQ in DEXTROSE 5% 1,000 ML IV SCH (06:00)
[2019-08-19] MEDS ORDERED: NA BICARBONATE 8.4% 50 ML SYG ONE (06:00)
[2019-08-19] MEDS ORDERED: PIPER-TAZO 3.375 GM IV (PMX) 100 ML IVPB SCH (06:00)
[2019-08-19] MEDS: PANTOPRAZOLE 40 MG INJ IV SCH (06:41)
== END 2019-08-19 07:47 | disposition expired | DRG 374 ==
LOC: E/R 10:08 → MS1 12:50 → 6WM 08-18 19:50 → ICU 08-19 05:38
PROVIDERS: ADMIT Internal Medicine; ATTEND Internal Medicine
PROC: 05HY33Z Insertion of Infusion Device into Upper Vein, Percutaneous Approach (ICD-10-PCS; principal; 2019-08-11)
PROC: 3E0336Z Introduction of Nutritional Substance into Peripheral Vein, Percutaneous Approach (ICD-10-PCS; 2019-08-11)
PROC: 0BH17EZ Insertion of Endotracheal Airway into Trachea, Via Natural or Artificial Opening (ICD-10-PCS; 2019-08-11)
PROC: 5A1935Z Respiratory Ventilation, Less than 24 Consecutive Hours (ICD-10-PCS; 2019-08-11)
DX: C78.6 Secondary malignant neoplasm of retroperitoneum and peritoneum (principal); J96.00 Acute respiratory failure, unspecified whether with hypoxia or hypercapnia; C56.9 Malignant neoplasm of unspecified ovary; R18.8 Other ascites; J93.9 Pneumothorax, unspecified; D69.6 Thrombocytopenia, unspecified; Z51.5 Encounter for palliative care; K76.89 Other specified diseases of liver; R74.8 Abnormal levels of other serum enzymes; G89.3 Neoplasm related pain (acute) (chronic); Z66 Do not resuscitate
CPT/HCPCS: 31500; 36415; 36573; 36600; 71045; 74181; 76705; 80048; 80053; 81001; 82550; 82553; 82803; 82962; 83605; 83690; 83735; 84100; 84134; 84478; 84484; 85025; 86304; 87086; 93005; 93970; 93971; 94002; 94770; 96374; 96375; 97116; 97162; 97530; C9113; J1170; J1650; J1885; J2060; J2310; J2405; J2543; J3480; J7030; J7040; J7050; J7070; Q9967